=== PATIENT | male | born 1930 | race Caucasian/White ===

== ENCOUNTER 2017-11-03 18:17 | Inpatient (IN) | payer OTHER ==
[2017-11-03 19:09] VITALS: BMI 23.6
--- NOTE | 2017-11-03 19:09 | PDOC ---
History of Present Illness - General Chief Complaint: SIRS, Suspected/Possible Stated Complaint: FEVER Time Seen by Provider: 11/03/17 19:08 - History of Present Illness Initial Comments: 11/03/17 21:02 Patient is a 87 y.o. male with a PMH of IDDM, CKD Stage 2, GERD, PVD and MDD who was BIBEMS to our ED this evening following a U/C positive for proteus mirabalis. As per paperwork from [facility], Patient was started on Ceftriaxone ( 1 gm QD) on 10/26/17. Patient's daughter @ bedside notes patient is verbal and A&O x 3 at baseline. Past History - Past Medical History Allergies/Adverse Reactions: Allergies Allergy/AdvReac Type Severity Reaction Status Date / Time No Known Allergies Allergy Verified 09/25/13 19:48 Home Medications: Ambulatory Orders Aspirin [ASA -] 81 mg PO DAILY 04/10/13 Docusate Sodium [Colace -] 200 mg PO HS 04/10/13 Metformin HCl [Glucophage] 1,000 mg PO BID 04/10/13 Metoclopramide HCl 5 mg PO TID 04/10/13 Omeprazole [Prilosec (RX)] 20 mg PO DAILY 04/10/13 Tamsulosin HCl 0.4 mg PO DAILY 04/10/13 Citalopram Hydrobromide [Celexa -] 10 mg PO DAILY 09/25/13 Lisinopril [Prinivil -] 2.5 mg PO DAILY 09/25/13 Acetaminophen [Tylenol -] 1,000 mg PO BID 11/04/17 Ascorbate Calcium [Vitamin C] 500 mg PO DAILY 11/04/17 Cholecalciferol (Vitamin D3) [Vitamin D3 -] 1,000 unit PO DAILY 11/04/17 Cyanocobalamin [Vitamin B12 -] 100 mcg PO DAILY 11/04/17 Docusate Sodium [Colace] 200 mg PO HS 11/04/17 Insulin Aspart [Novolog] 0 unit SQ TID 11/04/17 Methyl Salicylate/Menthol [Bengay Greaseless Cream] 0 gm TP DAILY 11/04/17 Mirtazapine 7.5 mg PO HS 11/04/17 Multivitamin [One Daily] 1 each PO DAILY 11/04/17 Simvastatin [Zocor -] 40 mg PO HS 11/04/17 Timolol 0.5% [Timoptic 0.5%] 1 drop OD BID 11/04/17 Zinc Oxide 20% Topical Oint 1 applic TP BID 11/04/17 Anemia: No Asthma: No Cancer: No Cardiac Disorders: Yes CVA: No COPD: No CHF: No Dementia: Yes Diabetes: Yes GI Disorders: No Disorders: No HTN: Yes Hypercholesterolemia: Yes Kidney Stones: (chronic kidney disease) Liver Disease: No Seizures: No Thyroid Disease: No Other medical history: glaucoma, behavior dis, dementia, prostate enlargement - Surgical History Orthopedic Surgery: Yes (ORIF RIGHT HIP 2011,LA KNEE REPLACEMENT) - Immunization History Immunization Up to Date: Yes - Suicide/Smoking/Psychosocial Hx Smoking Status: No Smoking History: Unknown if ever smoked Have you smoked in the past 12 months: No Number of Cigarettes Smoked Daily: 0 Information on smoking cessation initiated: No Hx Alcohol Use: No Drug/Substance Use Hx: No Substance Use Type: None Hx Substance Use Treatment: No Review of Systems - Review of Systems Able to Perform ROS?: No *Physical Exam - Vital Signs Last Vital Signs Temp Pulse Resp BP Pulse Ox 99.6 F 106 H 22 112/57 83 L 11/03/17 19:01 11/03/17 19:01 11/03/17 19:01 11/03/17 19:01 11/03/17 19:01 - Physical Exam General Appearance: Yes: Nourished, Appropriately Dressed, Other (Lethargic and arousable) HEENT: positive: EOMI, GHADA Neck: positive: Trachea midline, Supple. negative: Lymphadenopathy (R), Lymphadenopathy (L) Respiratory/Chest: positive: Lungs Clear Cardiovascular: positive: S1, S2 Gastrointestinal/Abdominal: positive: Normal Bowel Sounds, Soft Integumentary: positive: Normal Color, Dry, Warm Neurologic: positive: inner diameter grinder tool II-XII NML intact, Alert, Other (Patient alert, responds to voice, however lethargic) ED Treatment Course - LABORATORY CBC & Chemistry Diagram: 11/04/17 05:55 11/04/17 07:16 Medical Decision Making - Medical Decision Making 11/03/17 21:10 Patient is an 87 y.o. male who presents for AMS from [facility]. At presentation patient is tachycardic and saturating at 83% on RA. Full sepsis work-up pending. 11/03/17 21:19 Case d/w Dr. Sethi (Attending Physician @ [facility]) - patient sent to ED for fever 102. Patient has h/o 8 UTI's in the past year. Patient was A&O x3 yesterday prior to febrile episode. Urine culture @ [facility] grew Proteus Mirabalis susceptible to Rocephin. 11/03/17 21:20 Fingerstick 227, Labs pending 11/03/17 22:24 Troponin 0.09 --> ASA however likely reactive; as per EMR no previous Troponin. Will repeat @ 4 hour latanya. Leukocytosis 13.9. Bev García (admits for [facility] @ [facility]) paged for admission. Patient placed on monitor - hypotensive SBP 90's - will gently hydrate. 11/03/17 22:38 Case d/w Dr. Luque (covers for Dr. García) accepts admission to inpatient telemetry. UA/UC pending. Will continue to monitor while in ED. *DC/Admit/Observation/Transfer Diagnosis at time of Disposition: UTI (urinary tract infection) - Discharge Dispostion Condition at time of disposition: Fair Admit: Yes - Referrals - Patient Instructions - Post Discharge Activity
[2017-11-03] MEDS ORDERED: ACETAMINOPHEN 1000 MG/100 ML VIAL (NON FORMULARY) IVPB ONE (20:39)
[2017-11-03] MEDS ORDERED: ACETAMINOPHEN INJECTION 100 ML IVPB ONE (20:48)
[2017-11-03 20:51] LABS: BASO % 0.2 % (0-2.0); HEMATOCRIT 34.8 % (35.4-49); HEMOGLOBIN 11.5 GM/dL (11.7-16.9); LYMPH % 6.6 % (8-40); MCH 31.3 pg (25.7-33.7); MCHC 33.1 g/dl (32.0-35.9); MEAN CELL VOLUME 94.7 fl (80-96); MEAN PLT VOLUME 7.5 fl (7.5-11.1); MONO % 7.7 % (3.8-10.2); NEUT % 85.5 % (42.8-82.8); PLATELET COUNT 363 K/MM3 (134-434); RBC 3.67 M/mm3 (4.00-5.60); RDW 13.3 % (11.9-15.9); WHITE BLOOD COUNT 14.3 K/mm3 (4.0-10.0)
[2017-11-03 20:59] LABS: VENOUS PC02 33.6 mmHg (38-52); VENOUS PH 7.43 (7.32-7.42); VENOUS PO2 51.5 mmHg (28-48)
[2017-11-03 21:05] LABS: INR 1.25 (0.82-1.09); PROTHROMBIN TIME (PATIENT) 14.1 SEC (9.98-11.88)
[2017-11-03 21:07] LABS: ACTIVATED PTT 26.3 SECONDS (26.9-34.4)
[2017-11-03 21:22] LABS: ALBUMIN 2.8 g/dl (3.4-5.0); ANION GAP 12 (8-16); BILIRUBIN,TOTAL 0.6 mg/dL (0.2-1.0); BLOOD UREA NITROGEN 31 mg/dL (7-18); CHLORIDE 103 mmol/L (98-107); CO2 22 mmol/L (21-32); CREATININE 1.1 mg/dL (0.7-1.3); GLUCOSE,RANDOM 233 mg/dL (74-106); POTASSIUM 3.9 mmol/L (3.5-5.1); SGOT/AST 27 U/L (15-37); SGPT/ALT 19 U/L (12-78); SODIUM 137 mmol/L (136-145); TOT PROT 6.7 g/dl (6.4-8.2)
[2017-11-03 21:24] LABS: ALK PHOS 82 U/L (45-117)
[2017-11-03] MEDS ORDERED: ASPIRIN 325 MG ENTERIC COATED TABLET (FP) PO ONE (22:10)
[2017-11-03] MEDS ORDERED: ASPIRIN 325 MG TABLET ONE (22:18)
[2017-11-03] MEDS ORDERED: SODIUM CHLORIDE 0.9% 1000 ML INFUS.BAG IV ONE (22:40)
[2017-11-03] MEDS ORDERED: PIPERACILLIN/TAZOB 3.375 GM 3.375 GM in DEXTROSE 5%-WATER - 100 ML IVPB ONE (22:56)
--- NOTE | 2017-11-03 23:01 | HP ---
Admitting History and Physical - Primary Care Physician PCP: Corona Castorena - Admission Chief Complaint: Sent in for +Urine Culture History of Present Illness: This is a 87 y/o man from [facility] sent in for + urine culture- proteus miraballis, who was started on Ceftriaxone at the facility. Patient's daughter was at bedside who provided HPI. Patient has Dementia and unable to provide. The daughter reports that she was called by the [place] and informed about the patient's UTI. Per daughter, he was fine last Friday, alert and at baseline , he ate food that she fed him. She states" Today he is lethargic, pale, he has a moist, barky cough." Patient received Septic. T max 102.5, P- 100s, Spo2-83% improved with O2 95-100 %. 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 Cardiovascular: Yes: HTN, Hyperlipdemia Gastrointestinal: Yes: GERD, Peptic Ulcer Disease Renal/: Yes: Renal Failure (stage 2) Endocrine: Yes: Diabetes Mellitus - Past Surgical History Past Surgical History: Yes: Joint Replacement (right hip bilateral knee) - Advance Directives Advance Directives: Yes: DNR - Smoking History Smoking history: Unknown if ever smoked Have you smoked in the past 12 months: No Aproximately how many cigarettes per day: 0 - Alcohol/Substance Use Hx Alcohol Use: No History of Substance Use: reports: None - Social History Usual Living Arrangement: Yes: [facility] ADL: Support Services History of Recent Travel: No Home Medications - Allergies Allergies/Adverse Reactions: Allergies Allergy/AdvReac Type Severity Reaction Status Date / Time No Known Allergies Allergy Verified 09/25/13 19:48 - Home Medications Home Medications: Ambulatory Orders Aspirin [ASA -] 81 mg PO DAILY 04/10/13 Docusate Sodium [Colace -] 200 mg PO HS 04/10/13 Metformin HCl [Glucophage] 1,000 mg PO BID 04/10/13 Metoclopramide HCl 5 mg PO TID 04/10/13 Omeprazole [Prilosec (RX)] 20 mg PO DAILY 04/10/13 Tamsulosin HCl 0.4 mg PO DAILY 06/29/13 Citalopram Hydrobromide [Celexa -] 10 mg PO DAILY 09/25/13 Lisinopril [Prinivil -] 2.5 mg PO DAILY 09/25/13 Acetaminophen [Tylenol -] 1,000 mg PO BID 11/04/17 Ascorbate Calcium [Vitamin C] 500 mg PO DAILY 11/04/17 Cholecalciferol (Vitamin D3) [Vitamin D3 -] 1,000 unit PO DAILY 11/04/17 Cyanocobalamin [Vitamin B12 -] 100 mcg PO DAILY 11/04/17 Insulin Aspart [Novolog] 0 unit SQ TID 11/04/17 Mirtazapine 7.5 mg PO HS 11/04/17 Multivitamin [One Daily] 1 each PO DAILY 11/04/17 Simvastatin [Zocor -] 40 mg PO HS 11/04/17 Timolol 0.5% [Timoptic 0.5%] 1 drop OD BID 11/04/17 Zinc Oxide 20% Topical Oint 1 applic TP BID 11/04/17 Family Disease History - Family Disease History Family History: Unable to Obtain Review of Systems Unable to obtain ROS, reason: Dementia Physical Examination Vital Signs: Vital Signs Temperature 102.5 F H 11/03/17 20:53 Pulse Rate 106 H 11/03/17 19:01 Respiratory Rate 22 11/03/17 19:01 Blood Pressure 112/57 11/03/17 19:01 O2 Sat by Pulse Oximetry (%) 83 L 11/03/17 19:01 Constitutional: Yes: No Distress, Calm Eyes: Yes: WNL, Conjunctiva Clear, PERRL HENT: Yes: WNL, Atraumatic, Normocephalic Neck: Yes: WNL, Supple, Trachea Midline Cardiovascular: Yes: WNL, Regular Rate and Rhythm, S1, S2 Respiratory: Yes: Regular, Diminished, On Nasal O2 Gastrointestinal: Yes: Normal Bowel Sounds, Soft ...Rectal Exam: Yes: WNL Renal/: Yes: Incontinence Breast(s): Yes: WNL Musculoskeletal: Yes: WNL Extremities: Yes: WNL Edema: No Peripheral Pulses WNL: Yes Integumentary: Yes: WNL Neurological: Yes: Lethargy ...Motor Strength: WNL Psychiatric: Yes: Other (at baseline- Dementia) Labs: CBC, BMP 11/03/17 20:40 11/03/17 20:40 Laboratory Results - last 24 hr 11/03/17 11/03/17 11/03/17 20:40 20:40 20:40 WBC 14.3 H RBC 3.67 L Hgb 11.5 L Hct 34.8 L MCV 94.7 MCH 31.3 MCHC 33.1 RDW 13.3 Plt Count 363 D MPV 7.5 Neutrophils % 85.5 H Lymphocytes % 6.6 L Monocytes % 7.7 Eosinophils % 0.0 D Basophils % 0.2 PT with INR 14.10 H INR 1.25 H PTT (Actin FS) 26.3 L VBG pH 7.43 H POC VBG pCO2 33.6 L POC VBG pO2 51.5 H Mixed VBG HCO3 21.8 Sodium Potassium Chloride Carbon Dioxide Anion Gap BUN Creatinine Creat Clearance w eGFR POC Glucometer Random Glucose Lactic Acid Calcium Total Bilirubin AST ALT Alkaline Phosphatase Creatine Kinase Creatine Kinase Index CK-MB (CK-2) Troponin I Total Protein Albumin Urine Color Urine Appearance Urine pH Ur Specific [place] Urine Protein Urine Glucose (UA) Urine Ketones Urine Blood Urine Nitrite Urine Bilirubin Urine Urobilinogen Ur Leukocyte Esterase Urine WBC (Auto) Urine RBC (Auto) Ur Epithelial Cells Urine Mucus Anti-A Titer Blood Type Antibody Screen 11/03/17 11/03/17 11/03/17 20:40 20:40 20:40 WBC RBC Hgb Hct MCV MCH MCHC RDW Plt Count MPV Neutrophils % Lymphocytes % Monocytes % Eosinophils % Basophils % PT with INR INR PTT (Actin FS) VBG pH POC VBG pCO2 POC VBG pO2 Mixed VBG HCO3 Sodium 137 Potassium 3.9 Chloride 103 Carbon Dioxide 22 Anion Gap 12 BUN 31 H D Creatinine 1.1 D Creat Clearance w eGFR > 60 POC Glucometer Random Glucose 233 H D Lactic Acid 0.8 Calcium 8.0 L Total Bilirubin 0.6 D AST 27 D ALT 19 Alkaline Phosphatase 82 Creatine Kinase 291 Creatine Kinase Index 0.3 CK-MB (CK-2) < 1.000 Troponin I 0.09 H D Total Protein 6.7 Albumin 2.8 L Urine Color Urine Appearance Urine pH Ur Specific [place] Urine Protein Urine Glucose (UA) Urine Ketones Urine Blood Urine Nitrite Urine Bilirubin Urine Urobilinogen Ur Leukocyte Esterase Urine WBC (Auto) Urine RBC (Auto) Ur Epithelial Cells Urine Mucus Anti-A Titer Cancelled Blood Type Cancelled Antibody Screen Cancelled 11/03/17 11/04/17 11/04/17 21:44 02:20 02:40 WBC RBC Hgb Hct MCV MCH MCHC RDW Plt Count MPV Neutrophils % Lymphocytes % Monocytes % Eosinophils % Basophils % PT with INR INR PTT (Actin FS) VBG pH POC VBG pCO2 POC VBG pO2 Mixed VBG HCO3 Sodium Potassium Chloride Carbon Dioxide Anion Gap BUN Creatinine Creat Clearance w eGFR POC Glucometer [id number] Random Glucose Lactic Acid Calcium Total Bilirubin AST ALT Alkaline Phosphatase Creatine Kinase Creatine Kinase Index CK-MB (CK-2) Troponin I 0.08 H Total Protein Albumin Urine Color Yellow Urine Appearance Cloudy Urine pH 5.0 Ur Specific [place] 1.018 Urine Protein 1+ H Urine Glucose (UA) 1+ H Urine Ketones 1+ H Urine Blood 1+ H Urine Nitrite Negative Urine Bilirubin Negative Urine Urobilinogen Negative Ur Leukocyte Esterase 3+ H Urine WBC (Auto) 254 Urine RBC (Auto) 27 Ur Epithelial Cells Rare Urine Mucus Rare Anti-A Titer Blood Type Antibody Screen Intake & Output 11/01/17 11/02/17 11/03/17 11/04/17 23:59 23:59 23:59 23:59 Weight 74.843 kg Current Medications Generic Name Dose Route Start Last Admin Trade Name Freq PRN Reason Stop Dose Admin Aspirin 81 mg 11/04/17 10:00 Asa - PO DAILY [facility] Cholecalciferol 1,000 unit 11/04/17 10:00 Vitamin D3 - PO DAILY [facility] Citalopram Hydrobromide 10 mg 11/04/17 10:00 Celexa - PO DAILY [facility] Cyanocobalamin 100 mcg 11/04/17 10:00 Vitamin B12 - PO DAILY [facility] Sodium Chloride 1,000 mls @ 60 mls/hr 11/04/17 05:05 Normal Saline - IV ASDIR [facility] Insulin Aspart 1 vial 11/04/17 07:00 Novolog Vial Sliding Scale - SQ TIDAC [facility] Protocol Multivitamins/Minerals/Vitamin C 1 tab 11/04/17 10:00 Tab-A-Vit - PO DAILY ASYA Non-Formulary Medication 200 mg 11/04/17 22:00 Docusate Sodium [Colace -] PO HS ASYA Non-Formulary Medication 7.5 mg 11/04/17 22:00 Mirtazapine [Mirtazapine] PO HS ASYA Non-Formulary Medication 20 mg 11/04/17 10:00 Omeprazole [Prilosec (Rx)] PO DAILY [facility] Non-Formulary Medication 40 mg 11/04/17 22:00 Simvastatin PO HS ASYA Non-Formulary Medication 1 applic 11/04/17 10:00 Zinc Oxide 20% Topical Oint TP BID ASYA Non-Formulary Medication 2.5 mg 11/04/17 10:00 Lisinopril [Prinivil -] PO DAILY [facility] Tamsulosin HCl 0.4 mg 11/04/17 10:00 Flomax - PO DAILY [facility] Timolol Maleate 1 drop 11/04/17 10:00 Timoptic 0.5% OD BID [facility] Imaging - Results Chest X-ray: Image Reviewed EKG: Image Reviewed (SR with 1st degree AV Block nonspecific ST abnormality ( lead II) QT/QTc 388/477) Problem List - Problems (1) Sepsis Code(s): A41.9 - SEPSIS, UNSPECIFIED ORGANISM (2) UTI (urinary tract infection) Code(s): N39.0 - URINARY TRACT INFECTION, SITE NOT SPECIFIED (3) Hypoxic Code(s): R09.02 - HYPOXEMIA (4) Leukocytosis Code(s): D72.829 - ELEVATED WHITE BLOOD CELL COUNT, UNSPECIFIED (5) Elevated troponin I level Code(s): R74.8 - ABNORMAL LEVELS OF OTHER SERUM ENZYMES (6) HTN (hypertension) Code(s): I10 - ESSENTIAL (PRIMARY) HYPERTENSION (7) HLD (hyperlipidemia) Code(s): E78.5 - HYPERLIPIDEMIA, UNSPECIFIED (8) CKD (chronic kidney disease), stage II Code(s): N18.2 - CHRONIC KIDNEY DISEASE, STAGE 2 (MILD) (9) GERD (gastroesophageal reflux disease) Code(s): K21.9 - GASTRO-ESOPHAGEAL REFLUX DISEASE WITHOUT ESOPHAGITIS (10) PUD (peptic ulcer disease) Code(s): K27.9 - PEPTIC ULC, SITE UNSP, UNSP AC OR CHR, W/O HEMOR OR PERF (11) Dementia Code(s): F03.90 - UNSPECIFIED DEMENTIA WITHOUT BEHAVIORAL DISTURBANCE (12) MDD (major depressive disorder) Code(s): F32.9 - MAJOR DEPRESSIVE DISORDER, SINGLE EPISODE, UNSPECIFIED (13) Chronic lower urinary tract infection Code(s): N39.0 - URINARY TRACT INFECTION, SITE NOT SPECIFIED (14) DVT prophylaxis Code(s): [id number] - Assessment/Plan 87 y/o man with a PMHx of: Dementia, MDD, HTN, HLD, NIDDM, CKD stage II, GERD, PUD, Chronic UTIs. Admitted to [facility] for Sepsis secondary to UTI, Elevated Troponin. Plan: 1. ID Severe Sepsis- Likely secondary to UTI, patient was sent in for +urine culture obtained 10/23, resulted 10/30- proteus mirabilis, and was treated with ceftriaxone IM. UA obtained in ED- +3 Leukocytes, 324 WBC, Urine culture- pending. Vancomycin, Zosyn given in ED, Will continue Vancomycin and Zosyn. Appreciate ID Consult, qSOFA 3, SIRS Criteria MET IV- T max 102.5, P 106, Spo2 83% (RA improved to 95-100 on O2), WBC 14.3, Neutrophils 85, Monitor vitals, INOs, Continue NS fluids to Maintain SBP > 90's, MAP 65. Monitor CBC, BMP, Lactic Acid, Tylenol for fever. 2. Cardiology Elevated Troponin- Likely secondary to Demand Ischemia, Continue cardiac monitoring, Continue serial enzymes, Appreciate Cardiology Consult, EKG showed- SR with 1st degree AV block, non specific ST abnormality in lead II. Asa given in ED, will continue. Hypertension- Currently hypotensive, will hold home meds. Continue NS to maintain SBP >85 MAP >60 Hyperlipidemia- Continue statin, monitor LFTs 3. Nephrology CKD Stage II- Cr 1.1 at baseline Continue to monitor and treat with interventions accordingly. 4. Endocrinology NIDDM- BGMs, ISS, HgbA1c, Hold Metformin secondary to Sepsis 5. GI GERD//PUD- Continue PPI 6. Psych MDD// Dementia- Continue Lexapro, Remeron, Fall Precautions 7. FEN- NS@60ml/hr, Replete lytes prn, Low Na, Diabetic Diet 8. DVT Prophylaxis- SCDs, Heparin SQ monitor CBC closely Code Status: DNR Dispo: Requires Inpatient Care Visit type - Emergency Visit Emergency Visit: Yes ED Registration Date: 11/03/17 Care time: The patient presented to the Emergency Department on the above date and was hospitalized for further evaluation of their emergent condition. - New Patient This patient is new to me today: Yes Date on this admission: 11/03/17 - Critical Care Critical Care patient: No
[2017-11-03] MEDS ORDERED: PIPERACILLIN/TAZOB 3.375 GM 3.375 GM/50 ML BAG IVPB ONE (23:10)
[2017-11-03] MEDS ORDERED: VANCOMYCIN 1,000 MG in DEXTROSE 5%-WATER - 250 ML IVPB ONE (23:14)
[2017-11-03] MEDS ORDERED: VANCOMYCIN 1 GRAM (PRE-DOCKED) 1,000 MG/250 ML BAG IVPB ONE (23:15)
[2017-11-04] MEDS ORDERED: SODIUM CHLORIDE 500 ML IV STA (00:03)
[2017-11-04] MEDS ORDERED: SODIUM CHLORIDE 1,000 ML IV SCH ×2 (00:30→05:05)
[2017-11-04 02:56] LABS: URINE APPEARANCE CLOUDY; URINE BILIRUBIN NEGATIVE (NEGATIVE); URINE BLOOD 1+ (NEGATIVE); URINE COLOR YELLOW; URINE GLUCOSE (UA) 1+ (NEGATIVE); URINE KETONE 1+ (NEGATIVE); URINE NITRITE NEGATIVE (NEGATIVE); URINE UROBILINOGEN NEGATIVE mg/dL (0.2-1.0)
[2017-11-04 03:10] LABS: URINE LEUK ESTERASE 3+ (NEGATIVE); URINE PROTEIN 1+ (NEGATIVE)
[2017-11-04 03:13] LABS: EPI CELLS RARE /HPF (FEW); URINE MUCUS RARE
[2017-11-04] MEDS ORDERED: ACETAMINOPHEN 325 MG TABLET (FP) PO PRN (06:14)
[2017-11-04] MEDS ORDERED: INSULIN (NOVOLOG) ASPART 100 UNITS/ML 10ML VIAL ONE (07:46)
[2017-11-04 07:49] LABS: BASO % 0.1 % (0-2.0); HEMOGLOBIN 9.1 GM/dL (11.7-16.9); LYMPH % 12.1 % (8-40); MCH 31.1 pg (25.7-33.7); MCHC 32.4 g/dl (32.0-35.9); MEAN CELL VOLUME 95.9 fl (80-96); MEAN PLT VOLUME 7.2 fl (7.5-11.1); MONO % 10.7 % (3.8-10.2); NEUT % 77.1 % (42.8-82.8); PLATELET COUNT 273 K/MM3 (134-434); RBC 2.91 M/mm3 (4.00-5.60); RDW 13.2 % (11.9-15.9)
[2017-11-04] MEDS: INSULIN SLIDING SCALE (NOVOLOG) 1 VIAL SQ SCH ×3 (07:50→17:11)
[2017-11-04] MEDS ORDERED: PIPERACILLIN/TAZOB 3.375 GM 3.375 GM in DEXTROSE 5%-WATER - 100 ML IVPB ONE (08:15)
[2017-11-04 08:32] LABS: CHLORIDE 114 mmol/L (98-107); SODIUM 145 mmol/L (136-145)
[2017-11-04 09:15] LABS: ANION GAP 13 (8-16); BLOOD UREA NITROGEN 24 mg/dL (7-18); CO2 18 mmol/L (21-32); CREATININE 0.8 mg/dL (0.7-1.3); GLUCOSE,RANDOM 205 mg/dL (74-106)
[2017-11-04] MEDS: TAMSULOSIN HCL 0.4 MG CAP.ER.24H (FP) PO SCH (09:18)
[2017-11-04] MEDS: PANTOPRAZOLE 20 MG TABLET (FP) PO SCH (09:56)
[2017-11-04] MEDS: ASPIRIN 81 MG CHEWABLE TABLETS PO SCH (09:56)
[2017-11-04] MEDS: LISINOPRIL 5 MG TABLET (FP) PO SCH (09:56)
[2017-11-04] MEDS: CITALOPRAM HYDROBROMIDE 10 MG TABLET (FP) PO SCH (09:56)
[2017-11-04] MEDS: MULTIVITAMINS (DAILY MVI) TABLET (FP) PO SCH (09:56)
[2017-11-04] MEDS: CHOLECALCIFEROL (VITAMIN D3) 1,000 UNIT TABLET (FP) PO SCH (09:57)
[2017-11-04] MEDS: TIMOLOL 0.5% OPHTHALMIC SOL 5 ML BOTTLE OD SCH ×2 (09:57→21:59)
[2017-11-04] MEDS: CYANOCOBALAMIN (VITAMIN B-12) 100 MCG TABLET PO SCH (09:57)
[2017-11-04] MEDS: ZINC OXIDE 20% TOPICAL OINTMENT 30 GM TUBE TP SCH (09:57)
[2017-11-04] MEDS ORDERED: PIPERACIL/TAZOB 3.375 GM 3.375 GM/50 ML PREMIX IVPB SCH (10:00)
[2017-11-04] MEDS ORDERED: VANCOMYCIN 1,000 MG in DEXTROSE 5%-WATER - 250 ML IVPB SCH (10:00)
[2017-11-04 10:01] LABS: CALCIUM 5.5 mg/dL (8.5-10.1); POTASSIUM 2.8 mmol/L (3.5-5.1)
[2017-11-04] MEDS ORDERED: CALCIUM CHLORIDE 10% 1 GM/10 ML *VIAL IVPB ONE (10:33)
--- NOTE | 2017-11-04 10:34 | PN ---
Progress Note, Physician History of Present Illness: patient seen and examined. Chart reviewed. patient currently in the emergency room Awake and comfortable I discussed with the patient's private PMD [facility] In summary 87 year old man sent to ed with fever and lethargy from half-way he has been receiving rocephin IM since 10/29 for proteus UTI and received a dose of zosyn prior to transfer today he denies pain Comfortable - Current Medication List Current Medications: Active Medications Acetaminophen (Tylenol -) 650 mg PO Q6H PRN PRN Reason: PAIN OR FEVER Aspirin (Asa -) 81 mg PO DAILY [facility] Last Admin: 11/04/17 09:56 Dose: 81 mg Atorvastatin Calcium (Lipitor -) 20 mg PO HS [facility] Calcium Chloride (Calcium Chloride 10% -) 2 gm IVPB ONCE ONE Stop: 11/04/17 10:34 Cholecalciferol (Vitamin D3 -) 1,000 unit PO DAILY [facility] Last Admin: 11/04/17 09:57 Dose: 1,000 unit Citalopram Hydrobromide (Celexa -) 10 mg PO DAILY [facility] Last Admin: 11/04/17 09:56 Dose: 10 mg Cyanocobalamin (Vitamin B12 -) 100 mcg PO DAILY [facility] Last Admin: 11/04/17 09:57 Dose: 100 mcg Docusate Sodium (Colace -) 200 mg PO HS [facility] Dextrose/Sodium Chloride (Dextrose 5%-Normal Saline+20 Meq Kcl -) 20 meq in 1, 000 mls @ 125 mls/hr IV ASDIR [facility] Potassium Chloride (Potassium Chloride 10 Meq Premix Ivpb -) 10 meq in 100 mls @ 100 mls/hr IVPB Q60M [facility] Stop: 11/04/17 13:44 Insulin Aspart (Novolog Vial Sliding Scale -) 1 vial SQ TIDAC [facility] PRN Reason: Protocol Last Admin: 11/04/17 07:50 Dose: 6 units Lisinopril (Prinivil) 2.5 mg PO DAILY [facility] Last Admin: 11/04/17 09:56 Dose: Not Given Mirtazapine (Remeron -) 7.5 mg PO HS [facility] Multi-Ingredient Ointment (Zinc Oxide) 1 applic TP BID [facility] Last Admin: 11/04/17 09:57 Dose: Not Given Multivitamins/Minerals/Vitamin C (Tab-A-Vit -) 1 tab PO DAILY [facility] Last Admin: 11/04/17 09:56 Dose: 1 tab Pantoprazole Sodium (Protonix -) 20 mg PO DAILY [facility] Last Admin: 11/04/17 09:56 Dose: 20 mg Piperacillin/Tazobactam/Dextrose (Zosyn 3.375gm Ivpb (Premix)) 3.375 gm IVPB Q8H-IV [facility] Tamsulosin HCl (Flomax -) 0.4 mg PO DAILY@0830 [facility] Last Admin: 11/04/17 09:18 Dose: 0.4 mg Timolol Maleate (Timoptic 0.5%) 1 drop OD BID [facility] Last Admin: 11/04/17 09:57 Dose: Not Given - Objective Vital Signs: Vital Signs Temperature 98.4 F 11/04/17 06:59 Pulse Rate 60 11/04/17 09:12 Respiratory Rate 20 11/04/17 09:12 Blood Pressure 103/62 11/04/17 09:16 O2 Sat by Pulse Oximetry (%) 98 11/04/17 09:12 Constitutional: Yes: No Distress, Calm Eyes: Yes: Conjunctiva Clear Neck: Yes: Supple Cardiovascular: Yes: Regular Rate and Rhythm Respiratory: Yes: CTA Bilaterally. No: Diminished Gastrointestinal: Yes: Normal Bowel Sounds, Soft Edema: No Neurological: Yes: Alert Labs: CBC, BMP 11/04/17 05:55 11/04/17 07:16 INR, PTT INR 1.25 (0.82-1.09) H 11/03/17 20:40 - ....Imaging Chest X-ray: Report Reviewed Problem List - Problems (1) Fever Code(s): R50.9 - FEVER, UNSPECIFIED (2) Dementia Code(s): F03.90 - UNSPECIFIED DEMENTIA WITHOUT BEHAVIORAL DISTURBANCE Qualifiers: Dementia type: unspecified type (3) HTN (hypertension) Code(s): I10 - ESSENTIAL (PRIMARY) HYPERTENSION Qualifiers: Hypertension type: essential hypertension Qualified Code(s): I10 - Essential (primary) hypertension (4) UTI (urinary tract infection) Code(s): N39.0 - URINARY TRACT INFECTION, SITE NOT SPECIFIED (5) Electrolyte imbalance Code(s): E87.8 - OTH DISORDERS OF ELECTROLYTE AND FLUID BALANCE, NEC (6) Hypotension Code(s): I95.9 - HYPOTENSION, UNSPECIFIED Assessment/Plan continue antibiotics ID consult--- discussed with ID Need to have Zosyn Follow-up cultures Old blood pressure medication Increase fluids Fix electrolytes Follow-up labs Will follow Discussed with nursing staff.
--- NOTE | 2017-11-04 10:36 | CON.ID ---
Consult Consult Specialty:: infectious disease Referred by:: dr mora Reason for Consultation:: fever - History of Present Illness Chief Complaint: fever History of Present Illness: 87 year old man sent to ed with fever and [place]argy [place] I spoke to [place] he has been receiving rocephin IM since 10/29 for proteus UTI and received a dose of zosyn prior to transfer to our ED-I contacted his nurse at the [place] no documented influenza on his unit at the [place] now alert and conversant fever has resolved wants to eat breakfast denies chest pain/abd pain occasional cough - History Source History Provided By: Medical Record - Past Medical History 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 Cardio/Vascular: Yes: HTN, Hyperlipdemia Gastrointestinal: Yes: GERD, Peptic Ulcer Disease Renal/: Yes: Renal Failure (stage 2) Endocrine: Yes: Diabetes Mellitus - Past Surgical History Past Surgical History: Yes: Joint Replacement (right hip bilateral knee) - Alcohol/Substance Use Hx Alcohol Use: No History of Substance Use: reports: None - Smoking History Smoking history: Unknown if ever smoked Have you smoked in the past 12 months: No Aproximately how many cigarettes per day: 0 - Social History Usual Living Arrangement: [facility] ADL: Support Services History of Recent Travel: No Home Medications - Allergies Allergies/Adverse Reactions: Allergies Allergy/AdvReac Type Severity Reaction Status Date / Time No Known Allergies Allergy Verified 09/25/13 19:48 - Home Medications Home Medications: Ambulatory Orders Aspirin [ASA -] 81 mg PO DAILY 04/10/13 Docusate Sodium [Colace -] 200 mg PO HS 04/10/13 Metformin HCl [Glucophage] 1,000 mg PO BID 04/10/13 Metoclopramide HCl 5 mg PO TID 04/10/13 Omeprazole [Prilosec (RX)] 20 mg PO DAILY 04/10/13 Tamsulosin HCl 0.4 mg PO DAILY 04/10/13 Citalopram Hydrobromide [Celexa -] 10 mg PO DAILY 09/25/13 Lisinopril [Prinivil -] 2.5 mg PO DAILY 09/25/13 Acetaminophen [Tylenol -] 1,000 mg PO BID 11/04/17 Ascorbate Calcium [Vitamin C] 500 mg PO DAILY 11/04/17 Cholecalciferol (Vitamin D3) [Vitamin D3 -] 1,000 unit PO DAILY 11/04/17 Cyanocobalamin [Vitamin B12 -] 100 mcg PO DAILY 11/04/17 Insulin Aspart [Novolog] 0 unit SQ TID 11/04/17 Mirtazapine 7.5 mg PO HS 11/04/17 Multivitamin [One Daily] 1 each PO DAILY 11/04/17 Simvastatin [Zocor -] 40 mg PO HS 11/04/17 Timolol 0.5% [Timoptic 0.5%] 1 drop OD BID 11/04/17 Zinc Oxide 20% Topical Oint 1 applic TP BID 11/04/17 Family Disease History - Family Disease History Family History: Unable to Obtain Review of Systems - Review of Systems Constitutional: reports: No Symptoms Eyes: reports: No Symptoms HENT: reports: No Symptoms Neck: reports: No Symptoms Cardiovascular: denies: Chest Pain Respiratory: denies: SOB Gastrointestinal: reports: No Symptoms Genitourinary: reports: No Symptoms Physical Exam Vital Signs: Vital Signs Temperature 98.4 F 11/04/17 06:59 Pulse Rate 60 11/04/17 09:12 Respiratory Rate 20 11/04/17 09:12 Blood Pressure 103/62 11/04/17 09:16 O2 Sat by Pulse Oximetry (%) 98 11/04/17 09:12 Constitutional: Yes: Well Nourished, No Distress, Calm Eyes: Yes: Conjunctiva Clear HENT: Yes: Atraumatic, Normocephalic Neck: Yes: Supple Cardiovascular: Yes: Regular Rate and Rhythm Respiratory: Yes: Rhonchi Gastrointestinal: Yes: Normal Bowel Sounds, Soft Renal/: No: Bladder Distention, CVA Tenderness - Left, CVA Tenderness - Right Extremities: Yes: WNL Edema: No Psychiatric: Yes: Alert Labs: CBC, BMP 11/04/17 05:55 11/04/17 07:16 UA 254 wbc Imaging - Results Chest X-ray: Report Reviewed, Image Reviewed Problem List - Problems (1) Sepsis Code(s): A41.9 - SEPSIS, UNSPECIFIED ORGANISM (2) UTI (urinary tract infection) Code(s): N39.0 - URINARY TRACT INFECTION, SITE NOT SPECIFIED Assessment/Plan mental status improved pyuria noted on UA continue zosyn (received vanco/zosyn in ED) will f/u cultures replete electrolytes
[2017-11-04] MEDS ORDERED: POTASSIUM CHLORIDE 10 MEQ in SODIUM CHLORIDE 100 ML IVPB SCH ×2 (11:00→17:30)
--- NOTE | 2017-11-04 11:01 | CON.CARD ---
Consult Consult Specialty:: Cardiology Referred by:: Dr. Caitlin García Reason for Consultation:: Cardiac evaluation - History of Present Illness Chief Complaint: Lethargy with positive urine culture. Slightly elevated troponin History of Present Illness: Patient is an 87 year old gentleman transferred from [place] with underlying history of diabetes mellitus (Insulin requiring), hypertension (currently low blood pressure), hypercholesterolemia. He has been treated for UTI at the [place] with proteus UTI, but was transferred for further treatment after lethargy. He is awake and verbal. He denies chest pain or shortness of breath. He complains of intermittent palpitations. He denies paroxysmal nocturnal dyspnea or orthopnea. He denies fever. He complains of intermittent dizziness, but denies headache. He denies nausea, vomiting, diarrhea or abdominal pain. Cardiology consultation was called for mildly elevated troponin likely due to demand ischemia. 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 Cardio/Vascular: Yes: HTN, Hyperlipdemia Gastrointestinal: Yes: GERD, Peptic Ulcer Disease Renal/: Yes: Renal Inusuff Endocrine: Yes: Diabetes Mellitus - Past Surgical History Past Surgical History: Yes: Joint Replacement (right hip bilateral knee) - Alcohol/Substance Use Hx Alcohol Use: Yes (In the past) History of Substance Use: reports: None - Smoking History Smoking history: Former smoker Have you smoked in the past 12 months: No Aproximately how many cigarettes per day: 0 - Social History Usual Living Arrangement: [facility] ADL: Support Services History of Recent Travel: No Home Medications - Allergies Allergies/Adverse Reactions: Allergies Allergy/AdvReac Type Severity Reaction Status Date / Time No Known Allergies Allergy Verified 09/25/13 19:48 - Home Medications Home Medications: Ambulatory Orders Aspirin [ASA -] 81 mg PO DAILY 04/10/13 Docusate Sodium [Colace -] 200 mg PO HS 04/10/13 Metformin HCl [Glucophage] 1,000 mg PO BID 04/10/13 Metoclopramide HCl 5 mg PO TID 04/10/13 Omeprazole [Prilosec (RX)] 20 mg PO DAILY 04/10/13 Tamsulosin HCl 0.4 mg PO DAILY 04/10/13 Citalopram Hydrobromide [Celexa -] 10 mg PO DAILY 09/25/13 Lisinopril [Prinivil -] 2.5 mg PO DAILY 09/25/13 Acetaminophen [Tylenol -] 1,000 mg PO BID 11/04/17 Ascorbate Calcium [Vitamin C] 500 mg PO DAILY 11/04/17 Cholecalciferol (Vitamin D3) [Vitamin D3 -] 1,000 unit PO DAILY 11/04/17 Cyanocobalamin [Vitamin B12 -] 100 mcg PO DAILY 11/04/17 Insulin Aspart [Novolog] 0 unit SQ TID 11/04/17 Mirtazapine 7.5 mg PO HS 11/04/17 Multivitamin [One Daily] 1 each PO DAILY 11/04/17 Simvastatin [Zocor -] 40 mg PO HS 11/04/17 Timolol 0.5% [Timoptic 0.5%] 1 drop OD BID 11/04/17 Zinc Oxide 20% Topical Oint 1 applic TP BID 11/04/17 Family Disease History - Family Disease History Family History: Unable to Obtain Review of Systems - Review of Systems Constitutional: denies: Chills, Fever Cardiovascular: denies: Chest Pain, Palpitations, Shortness of Breath Respiratory: denies: Cough, Hemoptysis, Orthopnea, PND, SOB, SOB on Exertion Gastrointestinal: denies: Abdominal Pain, Constipation, Melena, Nausea, Rectal Bleeding, Vomiting Genitourinary: reports: Dysuria. denies: Hematuria Musculoskeletal: reports: Back Pain, Joint Pain Neurological: reports: Dizziness. denies: Headache, Seizure, Syncope Vital Signs: Vital Signs Temperature 98.4 F 11/04/17 06:59 Pulse Rate 60 11/04/17 09:12 Respiratory Rate 20 11/04/17 09:12 Blood Pressure 103/62 11/04/17 09:16 O2 Sat by Pulse Oximetry (%) 98 11/04/17 09:12 Eyes: Yes: PERRL HENT: Yes: Atraumatic Neck: Yes: Supple Respiratory: Yes: Diminished Gastrointestinal: Yes: Normal Bowel Sounds, Soft. No: Tenderness Cardiovascular: Yes: Regular Rate and Rhythm. No: Gallop JVD: No Carotid Bruit: No PMI: Non-Displaced Heart Sounds: Yes: S1, S2 Murmur: Yes: Systolic Murmur (Soft SM at LSB and apex), Grade 1 Edema: No - Other Data Labs, Other Data: CBC, BMP 11/04/17 05:55 11/04/17 07:16 INR, PTT INR 1.25 (0.82-1.09) H 11/03/17 20:40 Troponin, BNP 11/03/17 11/04/17 11/04/17 20:40 02:20 07:16 Troponin I 0.09 H D 0.08 H 0.04 D Laboratory Results - last 24 hr 11/03/17 11/03/17 11/03/17 20:40 20:40 20:40 WBC 14.3 H RBC 3.67 L Hgb 11.5 L Hct 34.8 L MCV 94.7 MCH 31.3 MCHC 33.1 RDW 13.3 Plt Count 363 D MPV 7.5 Neutrophils % 85.5 H Lymphocytes % 6.6 L Monocytes % 7.7 Eosinophils % 0.0 D Basophils % 0.2 PT with INR 14.10 H INR 1.25 H PTT (Actin FS) 26.3 L VBG pH 7.43 H POC VBG pCO2 33.6 L POC VBG pO2 51.5 H Mixed VBG HCO3 21.8 Sodium Potassium Chloride Carbon Dioxide Anion Gap BUN Creatinine Creat Clearance w eGFR POC Glucometer Random Glucose Lactic Acid Calcium Total Bilirubin AST ALT Alkaline Phosphatase Creatine Kinase Creatine Kinase Index CK-MB (CK-2) Troponin I Total Protein Albumin Urine Color Urine Appearance Urine pH Ur Specific Lovely Urine Protein Urine Glucose (UA) Urine Ketones Urine Blood Urine Nitrite Urine Bilirubin Urine Urobilinogen Ur Leukocyte Esterase Urine WBC (Auto) Urine RBC (Auto) Ur Epithelial Cells Urine Mucus Anti-A Titer Blood Type Antibody Screen 11/03/17 11/03/17 11/03/17 20:40 20:40 20:40 WBC RBC Hgb Hct MCV MCH MCHC RDW Plt Count MPV Neutrophils % Lymphocytes % Monocytes % Eosinophils % Basophils % PT with INR INR PTT (Actin FS) VBG pH POC VBG pCO2 POC VBG pO2 Mixed VBG HCO3 Sodium 137 Potassium 3.9 Chloride 103 Carbon Dioxide 22 Anion Gap 12 BUN 31 H D Creatinine 1.1 D Creat Clearance w eGFR > 60 POC Glucometer Random Glucose 233 H D Lactic Acid 0.8 Calcium 8.0 L Total Bilirubin 0.6 D AST 27 D ALT 19 Alkaline Phosphatase 82 Creatine Kinase 291 Creatine Kinase Index 0.3 CK-MB (CK-2) < 1.000 Troponin I 0.09 H D Total Protein 6.7 Albumin 2.8 L Urine Color Urine Appearance Urine pH Ur Specific Lovely Urine Protein Urine Glucose (UA) Urine Ketones Urine Blood Urine Nitrite Urine Bilirubin Urine Urobilinogen Ur Leukocyte Esterase Urine WBC (Auto) Urine RBC (Auto) Ur Epithelial Cells Urine Mucus Anti-A Titer Cancelled Blood Type Cancelled Antibody Screen Cancelled 11/03/17 11/04/17 11/04/17 21:44 02:20 02:40 WBC RBC Hgb Hct MCV MCH MCHC RDW Plt Count MPV Neutrophils % Lymphocytes % Monocytes % Eosinophils % Basophils % PT with INR INR PTT (Actin FS) VBG pH POC VBG pCO2 POC VBG pO2 Mixed VBG HCO3 Sodium Potassium Chloride Carbon Dioxide Anion Gap BUN Creatinine Creat Clearance w eGFR POC Glucometer [phone] Random Glucose Lactic Acid Calcium Total Bilirubin AST ALT Alkaline Phosphatase Creatine Kinase Creatine Kinase Index CK-MB (CK-2) Troponin I 0.08 H Total Protein Albumin Urine Color Yellow Urine Appearance Cloudy Urine pH 5.0 Ur Specific Lovely 1.018 Urine Protein 1+ H Urine Glucose (UA) 1+ H Urine Ketones 1+ H Urine Blood 1+ H Urine Nitrite Negative Urine Bilirubin Negative Urine Urobilinogen Negative Ur Leukocyte Esterase 3+ H Urine WBC (Auto) 254 Urine RBC (Auto) 27 Ur Epithelial Cells Rare Urine Mucus Rare Anti-A Titer Blood Type Antibody Screen 11/04/17 11/04/17 11/04/17 05:55 07:16 07:41 WBC 11.0 H RBC 2.91 L D Hgb 9.1 L D Hct 28.0 L D MCV 95.9 MCH 31.1 MCHC 32.4 RDW 13.2 Plt Count 273 D MPV 7.2 L Neutrophils % 77.1 Lymphocytes % 12.1 D Monocytes % 10.7 H Eosinophils % 0.0 Basophils % 0.1 PT with INR INR PTT (Actin FS) VBG pH POC VBG pCO2 POC VBG pO2 Mixed VBG HCO3 Sodium 145 Potassium 2.8 L* D Chloride 114 H D Carbon Dioxide 18 L Anion Gap 13 BUN 24 H D Creatinine 0.8 D Creat Clearance w eGFR POC Glucometer [phone] Random Glucose 205 H Lactic Acid Calcium 5.5 L* D Total Bilirubin AST ALT Alkaline Phosphatase Creatine Kinase Creatine Kinase Index CK-MB (CK-2) Troponin I 0.04 D Total Protein Albumin Urine Color Urine Appearance Urine pH Ur Specific Lovely Urine Protein Urine Glucose (UA) Urine Ketones Urine Blood Urine Nitrite Urine Bilirubin Urine Urobilinogen Ur Leukocyte Esterase Urine WBC (Auto) Urine RBC (Auto) Ur Epithelial Cells Urine Mucus Anti-A Titer Blood Type Antibody Screen Sinus rhythm with nonspecific ST abnormality in inferior leads Echo: Pending Imaging - Results Chest X-ray: Report Reviewed (Unremarkable) EKG: Report Reviewed Problem List - Problems (1) CKD (chronic kidney disease), stage II Code(s): N18.2 - CHRONIC KIDNEY DISEASE, STAGE 2 (MILD) (2) Dementia Code(s): F03.90 - UNSPECIFIED DEMENTIA WITHOUT BEHAVIORAL DISTURBANCE Qualifiers: Dementia type: unspecified type (3) Elevated troponin I level Code(s): R74.8 - ABNORMAL LEVELS OF OTHER SERUM ENZYMES (4) GERD (gastroesophageal reflux disease) Code(s): K21.9 - GASTRO-ESOPHAGEAL REFLUX DISEASE WITHOUT ESOPHAGITIS (5) HLD (hyperlipidemia) Code(s): E78.5 - HYPERLIPIDEMIA, UNSPECIFIED (6) HTN (hypertension) Code(s): I10 - ESSENTIAL (PRIMARY) HYPERTENSION Qualifiers: Hypertension type: essential hypertension Qualified Code(s): I10 - Essential (primary) hypertension (7) Leukocytosis Code(s): D72.829 - ELEVATED WHITE BLOOD CELL COUNT, UNSPECIFIED (8) PUD (peptic ulcer disease) Code(s): K27.9 - PEPTIC ULC, SITE UNSP, UNSP AC OR CHR, W/O HEMOR OR PERF (9) Sepsis Code(s): A41.9 - SEPSIS, UNSPECIFIED ORGANISM (10) UTI (urinary tract infection) Code(s): N39.0 - URINARY TRACT INFECTION, SITE NOT SPECIFIED Assessment/Plan 1. Clinical presentation compatible with urinary tract infection/urosepsis 2. Elevated troponin compatible with demand ischemia 3. Hypertension - currently normotensive to hypotensive due to sepsis 4. Hypercholesterolemia 5. Diabetes mellitus 6. Dementia - altered mental status due to above sepsis - improved 7. History of renal insufficiency - currently normal creatinine 8. Hypokalemia 9. Anemia PLAN: 1. Repeat ECG as monitor reveals baseline artiface - most likely sinus rhythm 2. Antibiotic coverage as per ID service. Cox culture including blood and urine 3. Transthoracic echocardiography to assess LV/RV and valvular function 4. Trend troponin 5. Supplement potassium. Monitor electrolytes and renal function 6. Continue Lisinopril as tolerated 7. Continue ASA if not contraindicated Further plans are to follow Samir Mulligan MD
[2017-11-04] MEDS ORDERED: KCL 10 MEQ IVPB 10 MEQ/100 ML INFUS.BAG IVPB ONE (11:49)
[2017-11-04] MEDS ORDERED: INSULIN REGULAR HUMAN 100 UNITS/ML *VIAL ONE (11:54)
[2017-11-04] MEDS: POTASSIUM CHLORIDE 10 MEQ in SODIUM CHLORIDE 100 ML IVPB SCH ×3 (11:56→14:49)
[2017-11-04] MEDS ORDERED: CALCIUM CHLORIDE 1 GM/10 ML *DISP.SYRIN ONE ×2 (12:20→12:21)
[2017-11-04] MEDS: D5-NS + 20 MEQ KCL - 20 MEQ/1,000 ML INFUS.BAG IV SCH ×2 (12:45→15:26)
[2017-11-04] MEDS ORDERED: KCL 10 MEQ IVPB 20 MEQ/200 ML INFUS.BAG IVPB ONE (13:35)
[2017-11-04] MEDS ORDERED: PNEUMOC 13-VAL CONJ-DIP CRM/PF 0.5 ML DISP.SYRIN IM ONE (16:00)
[2017-11-04] MEDS ORDERED: POTASSIUM CHLORIDE 30 MEQ in SODIUM CHLORIDE 250 ML IVPB ONE (17:30)
[2017-11-04] MEDS ORDERED: KCL 10 MEQ IVPB 10 MEQ/100 ML INFUS.BAG IVPB SCH (17:30)
[2017-11-04] MEDS ORDERED: POTASSIUM CHLORIDE TABS 10 MEQ TABLET.ER (FP) PO ONE ×2 (18:45→21:00)
[2017-11-04] MEDS: PIPERACILLIN/TAZOB 3.375 GM 3.375 GM in DEXTROSE 5%-WATER - 100 ML IVPB SCH (19:06)
[2017-11-04] MEDS: DOCUSATE SODIUM 100 MG CAPSULE (FP) PO SCH (21:20)
[2017-11-04] MEDS: MIRTAZAPINE 15 MG TABLET (FP) PO SCH (21:20)
[2017-11-04] MEDS: ATORVASTATIN CA 20 MG TABLET (FP) PO SCH (21:20)
[2017-11-04] MEDS ORDERED: VANCOMYCIN 1,000 MG in DEXTROSE 5%-WATER - 250 ML IVPB ONE (22:55)
[2017-11-05] MEDS: ZINC OXIDE 20% TOPICAL OINTMENT 30 GM TUBE TP SCH ×3 (02:00→22:03)
[2017-11-05] MEDS: PIPERACILLIN/TAZOB 3.375 GM 3.375 GM in DEXTROSE 5%-WATER - 100 ML IVPB SCH ×3 (03:58→17:33)
[2017-11-05] MEDS: INSULIN SLIDING SCALE (NOVOLOG) 1 VIAL SQ SCH ×3 (06:58→17:33)
[2017-11-05 07:50] LABS: BASO % 0.3 % (0-2.0); EOS % 2.4 % (0-4.5); HEMATOCRIT 29.3 % (35.4-49); HEMOGLOBIN 9.8 GM/dL (11.7-16.9); LYMPH % 13.1 % (8-40); MCH 31.8 pg (25.7-33.7); MCHC 33.4 g/dl (32.0-35.9); MEAN CELL VOLUME 95.1 fl (80-96); MEAN PLT VOLUME 7.4 fl (7.5-11.1); MONO % 10.1 % (3.8-10.2); NEUT % 74.1 % (42.8-82.8); PLATELET COUNT 268 K/MM3 (134-434); RBC 3.08 M/mm3 (4.00-5.60); RDW 13.4 % (11.9-15.9); WHITE BLOOD COUNT 8.2 K/mm3 (4.0-10.0)
[2017-11-05 08:01] LABS: ANION GAP 5 (8-16); BLOOD UREA NITROGEN 19 mg/dL (7-18); CHLORIDE 108 mmol/L (98-107); CO2 26 mmol/L (21-32); POTASSIUM 5.1 mmol/L (3.5-5.1); SGOT/AST 33 U/L (15-37); SGPT/ALT 23 U/L (12-78); SODIUM 139 mmol/L (136-145)
[2017-11-05 08:08] LABS: ALK PHOS 51 U/L (45-117); BILIRUBIN,TOTAL 0.2 mg/dL (0.2-1.0); CALCIUM 7.9 mg/dL (8.5-10.1); CREATININE 0.9 mg/dL (0.7-1.3); MAGNESIUM 1.4 mg/dL (1.8-2.4); TOT PROT 5.1 g/dl (6.4-8.2)
--- NOTE | 2017-11-05 08:08 | EKG ---
Test Reason : Blood Pressure : / mmHG Vent. Rate : 091 BPM Atrial Rate : 091 BPM P-R Int : 220 ms QRS Dur : 082 ms QT Int : 388 ms P-R-T Axes : 088 -24 041 degrees QTc Int : 477 ms SINUS RHYTHM WITH 1ST DEGREE A-V BLOCK NONSPECIFIC ST ABNORMALITY ABNORMAL ECG WHEN COMPARED WITH ECG OF 25-SEP-2013 19:35, PREMATURE VENTRICULAR COMPLEXES ARE NO LONGER PRESENT NE INTERVAL HAS INCREASED T WAVE AMPLITUDE HAS INCREASED IN ANTERIOR LEADS Confirmed by DANY SIM, LESA ([id number]) on 11/05/2017 8:08:12 AM Referred By: Confirmed By:LESA SAENZ MD
--- NOTE | 2017-11-05 08:24 | PN ---
Progress Note, Physician Chief Complaint: ID Started on Zosyn here in hospital Complains of chest pains - Current Medication List Current Medications: Active Medications Acetaminophen (Tylenol -) 650 mg PO Q6H PRN PRN Reason: PAIN OR FEVER Last Admin: 11/04/17 21:28 Dose: 650 mg Aspirin (Asa -) 81 mg PO DAILY [facility] Last Admin: 11/04/17 09:56 Dose: 81 mg Atorvastatin Calcium (Lipitor -) 20 mg PO [facility] Last Admin: 11/04/17 21:20 Dose: 20 mg Cholecalciferol (Vitamin D3 -) 1,000 unit PO DAILY [facility] Last Admin: 11/04/17 09:57 Dose: 1,000 unit Citalopram Hydrobromide (Celexa -) 10 mg PO DAILY [facility] Last Admin: 11/04/17 09:56 Dose: 10 mg Cyanocobalamin (Vitamin B12 -) 100 mcg PO DAILY [facility] Last Admin: 11/04/17 09:57 Dose: 100 mcg Docusate Sodium (Colace -) 200 mg PO [facility] Last Admin: 11/04/17 21:20 Dose: 200 mg Dextrose/Sodium Chloride (Dextrose 5%-Normal Saline+20 Meq Kcl -) 20 meq in 1, 000 mls @ 125 mls/hr IV ASDIR [facility] Last Admin: 11/04/17 15:26 Dose: 125 mls/hr Piperacillin Sod/Tazobactam (Sod 3.375 gm/ Dextrose) 100 mls @ 200 mls/hr IVPB Q8H-IV [facility] Last Admin: 11/05/17 03:58 Dose: 200 mls/hr Insulin Aspart (Novolog Vial Sliding Scale -) 1 vial SQ TIDAC [facility] PRN Reason: Protocol Last Admin: 11/05/17 06:58 Dose: 8 units Lisinopril (Prinivil) 2.5 mg PO DAILY [facility] Last Admin: 11/04/17 09:56 Dose: Not Given Mirtazapine (Remeron -) 7.5 mg PO [facility] Last Admin: 11/04/17 21:20 Dose: 7.5 mg Multi-Ingredient Ointment (Zinc Oxide) 1 applic TP BID [facility] Last Admin: 11/05/17 02:00 Dose: 1 applic Multivitamins/Minerals/Vitamin C (Tab-A-Vit -) 1 tab PO DAILY [facility] Last Admin: 11/04/17 09:56 Dose: 1 tab Pantoprazole Sodium (Protonix -) 20 mg PO DAILY [facility] Last Admin: 11/04/17 09:56 Dose: 20 mg Tamsulosin HCl (Flomax -) 0.4 mg PO DAILY@0830 [facility] Last Admin: 11/04/17 09:18 Dose: 0.4 mg Timolol Maleate (Timoptic 0.5%) 1 drop OD BID [facility] Last Admin: 11/04/17 21:59 Dose: 1 drop - Objective Vital Signs: Vital Signs Temperature 98.3 F 11/05/17 05:00 Pulse Rate 94 H 11/05/17 05:00 Respiratory Rate 20 11/05/17 05:00 Blood Pressure 120/57 11/05/17 05:00 O2 Sat by Pulse Oximetry (%) 99 11/04/17 21:00 Constitutional: Yes: Well Nourished, No Distress Neck: Yes: WNL, Supple Cardiovascular: Yes: Regular Rate and Rhythm, S1, S2 Respiratory: Yes: WNL, Regular, CTA Bilaterally Gastrointestinal: Yes: WNL, Normal Bowel Sounds, Soft. No: Tenderness, Tenderness, Epigastrium Edema: No Labs: CBC, BMP 11/05/17 06:38 INR, PTT INR 1.25 (0.82-1.09) H 11/03/17 20:40 Assessment/Plan Laboratory Tests 11/04/17 11/04/17 11/05/17 02:40 07:16 06:38 WBC 8.2 Hgb 9.8 L Hct 29.3 L Plt Count 268 BUN 24 H D Creatinine 0.8 D Urine RBC (Auto) 27 Assessment ON therapy for urinary infection. Zosyn Demand ischemia chest pains Plan Continue IV therapy for now Almas SIM
[2017-11-05 08:36] LABS: GLUCOSE,RANDOM 320 mg/dL (74-106)
[2017-11-05] MEDS ORDERED: SODIUM CHLORIDE 1,000 ML IV SCH (09:30)
--- NOTE | 2017-11-05 09:36 | PN ---
Progress Note, Physician History of Present Illness: patient seen and examined. Awake and comfortable. looks better afebrile denies pain. - Current Medication List Current Medications: Active Medications Acetaminophen (Tylenol -) 650 mg PO Q6H PRN PRN Reason: PAIN OR FEVER Last Admin: 11/04/17 21:28 Dose: 650 mg Aspirin (Asa -) 81 mg PO DAILY [facility] Last Admin: 11/04/17 09:56 Dose: 81 mg Atorvastatin Calcium (Lipitor -) 20 mg PO [facility] Last Admin: 11/04/17 21:20 Dose: 20 mg Cholecalciferol (Vitamin D3 -) 1,000 unit PO DAILY [facility] Last Admin: 11/04/17 09:57 Dose: 1,000 unit Citalopram Hydrobromide (Celexa -) 10 mg PO DAILY [facility] Last Admin: 11/04/17 09:56 Dose: 10 mg Cyanocobalamin (Vitamin B12 -) 100 mcg PO DAILY [facility] Last Admin: 11/04/17 09:57 Dose: 100 mcg Docusate Sodium (Colace -) 200 mg PO [facility] Last Admin: 11/04/17 21:20 Dose: 200 mg Piperacillin Sod/Tazobactam (Sod 3.375 gm/ Dextrose) 100 mls @ 200 mls/hr IVPB Q8H-IV [facility] Last Admin: 11/05/17 03:58 Dose: 200 mls/hr Sodium Chloride (Normal Saline -) 1,000 mls @ 83 mls/hr IV ASDIR [facility] Insulin Aspart (Novolog Vial Sliding Scale -) 1 vial SQ TIDAC [facility] PRN Reason: Protocol Last Admin: 11/05/17 06:58 Dose: 8 units Insulin Detemir (Levemir Vial) 10 units SQ [facility] Lisinopril (Prinivil) 2.5 mg PO DAILY [facility] Last Admin: 11/04/17 09:56 Dose: Not Given Mirtazapine (Remeron -) 7.5 mg PO [facility] Last Admin: 11/04/17 21:20 Dose: 7.5 mg Multi-Ingredient Ointment (Zinc Oxide) 1 applic TP BID [facility] Last Admin: 11/05/17 02:00 Dose: 1 applic Multivitamins/Minerals/Vitamin C (Tab-A-Vit -) 1 tab PO DAILY [facility] Last Admin: 11/04/17 09:56 Dose: 1 tab Pantoprazole Sodium (Protonix -) 20 mg PO DAILY [facility] Last Admin: 11/04/17 09:56 Dose: 20 mg Tamsulosin HCl (Flomax -) 0.4 mg PO DAILY@0830 [facility] Last Admin: 11/04/17 09:18 Dose: 0.4 mg Timolol Maleate (Timoptic 0.5%) 1 drop OD BID [facility] Last Admin: 11/04/17 21:59 Dose: 1 drop - Objective Vital Signs: Vital Signs Temperature 98.3 F 11/05/17 05:00 Pulse Rate 94 H 11/05/17 05:00 Respiratory Rate 20 11/05/17 05:00 Blood Pressure 120/57 11/05/17 05:00 O2 Sat by Pulse Oximetry (%) 99 11/04/17 21:00 Constitutional: Yes: No Distress, Calm Eyes: Yes: Conjunctiva Clear Neck: Yes: Supple Cardiovascular: Yes: Regular Rate and Rhythm Respiratory: Yes: CTA Bilaterally Gastrointestinal: Yes: Normal Bowel Sounds, Soft Edema: No Neurological: Yes: Tremors, Other (tremors consistant with parkinsonism +) Labs: CBC, BMP 11/05/17 06:38 11/05/17 06:38 INR, PTT INR 1.25 (0.82-1.09) H 11/03/17 20:40 - ....Imaging Other: Other (echo - reviewed-- mild diastolic dysfunction - otherwise ok.) Problem List - Problems (1) Fever Code(s): R50.9 - FEVER, UNSPECIFIED (2) Dementia Code(s): F03.90 - UNSPECIFIED DEMENTIA WITHOUT BEHAVIORAL DISTURBANCE Qualifiers: Dementia type: unspecified type (3) HTN (hypertension) Code(s): I10 - ESSENTIAL (PRIMARY) HYPERTENSION Qualifiers: Hypertension type: essential hypertension Qualified Code(s): I10 - Essential (primary) hypertension (4) UTI (urinary tract infection) Code(s): N39.0 - URINARY TRACT INFECTION, SITE NOT SPECIFIED (5) Electrolyte imbalance Code(s): E87.8 - OTH DISORDERS OF ELECTROLYTE AND FLUID BALANCE, NEC (6) Hypotension Code(s): I95.9 - HYPOTENSION, UNSPECIFIED Assessment/Plan clinically better continue antibiotics Follow-up cultures mild hydration change to ns as sugar running high add basal insulin Follow-up labs noted Will follow Discussed with nursing staff. physical therapy oob - chair will follow
--- NOTE | 2017-11-05 10:23 | EKG ---
Test Reason : Blood Pressure : / mmHG Vent. Rate : 054 BPM Atrial Rate : 054 BPM P-R Int : 118 ms QRS Dur : 080 ms QT Int : 436 ms P-R-T Axes : 025 -17 020 degrees QTc Int : 413 ms SINUS BRADYCARDIA OTHERWISE NORMAL ECG WHEN COMPARED WITH ECG OF 04-NOV-2017 11:04, SINUS RHYTHM HAS REPLACED JUNCTIONAL RHYTHM Confirmed by DANY SIM, LESA ([id number]) on 11/05/2017 10:23:52 AM Referred By: Mali BORJA Confirmed By:LESA SAENZ MD
[2017-11-05] MEDS ORDERED: PT OWN MED DRAWER 7, Y5N ONE ×3 (10:36→21:34)
[2017-11-05] MEDS: TAMSULOSIN HCL 0.4 MG CAP.ER.24H (FP) PO SCH (10:46)
[2017-11-05] MEDS: LISINOPRIL 5 MG TABLET (FP) PO SCH (10:46)
[2017-11-05] MEDS: CHOLECALCIFEROL (VITAMIN D3) 1,000 UNIT TABLET (FP) PO SCH (10:46)
[2017-11-05] MEDS: PANTOPRAZOLE 20 MG TABLET (FP) PO SCH (10:46)
[2017-11-05] MEDS: TIMOLOL 0.5% OPHTHALMIC SOL 5 ML BOTTLE OD SCH ×2 (10:46→22:04)
[2017-11-05] MEDS: CITALOPRAM HYDROBROMIDE 10 MG TABLET (FP) PO SCH (10:46)
[2017-11-05] MEDS: MULTIVITAMINS (DAILY MVI) TABLET (FP) PO SCH (10:46)
[2017-11-05] MEDS: ASPIRIN 81 MG CHEWABLE TABLETS PO SCH (10:46)
[2017-11-05] MEDS: CYANOCOBALAMIN (VITAMIN B-12) 100 MCG TABLET PO SCH (10:46)
--- NOTE | 2017-11-05 11:34 | PN ---
Progress Note, Physician History of Present Illness: No complaints. - Current Medication List Current Medications: Active Medications Acetaminophen (Tylenol -) 650 mg PO Q6H PRN PRN Reason: PAIN OR FEVER Last Admin: 11/04/17 21:28 Dose: 650 mg Aspirin (Asa -) 81 mg PO DAILY [facility] Last Admin: 11/05/17 10:46 Dose: 81 mg Atorvastatin Calcium (Lipitor -) 20 mg PO [facility] Last Admin: 11/04/17 21:20 Dose: 20 mg Cholecalciferol (Vitamin D3 -) 1,000 unit PO DAILY [facility] Last Admin: 11/05/17 10:46 Dose: 1,000 unit Citalopram Hydrobromide (Celexa -) 10 mg PO DAILY [facility] Last Admin: 11/05/17 10:46 Dose: 10 mg Cyanocobalamin (Vitamin B12 -) 100 mcg PO DAILY [facility] Last Admin: 11/05/17 10:46 Dose: 100 mcg Docusate Sodium (Colace -) 200 mg PO [facility] Last Admin: 11/04/17 21:20 Dose: 200 mg Piperacillin Sod/Tazobactam (Sod 3.375 gm/ Dextrose) 100 mls @ 200 mls/hr IVPB Q8H-IV [facility] Last Admin: 11/05/17 10:45 Dose: 200 mls/hr Sodium Chloride (Normal Saline -) 1,000 mls @ 83 mls/hr IV ASDIR [facility] Last Admin: 11/05/17 10:45 Dose: 83 mls/hr Insulin Aspart (Novolog Vial Sliding Scale -) 1 vial SQ TIDAC [facility] PRN Reason: Protocol Last Admin: 11/05/17 06:58 Dose: 8 units Insulin Detemir (Levemir Vial) 10 units SQ [facility] Lisinopril (Prinivil) 2.5 mg PO DAILY [facility] Last Admin: 11/05/17 10:46 Dose: 2.5 mg Mirtazapine (Remeron -) 7.5 mg PO [facility] Last Admin: 11/04/17 21:20 Dose: 7.5 mg Multi-Ingredient Ointment (Zinc Oxide) 1 applic TP BID [facility] Last Admin: 11/05/17 10:45 Dose: 1 applic Multivitamins/Minerals/Vitamin C (Tab-A-Vit -) 1 tab PO DAILY [facility] Last Admin: 11/05/17 10:46 Dose: 1 tab Pantoprazole Sodium (Protonix -) 20 mg PO DAILY [facility] Last Admin: 11/05/17 10:46 Dose: 20 mg Tamsulosin HCl (Flomax -) 0.4 mg PO DAILY@0830 [facility] Last Admin: 11/05/17 10:46 Dose: 0.4 mg Timolol Maleate (Timoptic 0.5%) 1 drop OD BID [facility] Last Admin: 11/05/17 10:46 Dose: 1 drop - Objective Vital Signs: Vital Signs Temperature 98.3 F 11/05/17 05:00 Pulse Rate 94 H 11/05/17 05:00 Respiratory Rate 20 11/05/17 05:00 Blood Pressure 120/57 11/05/17 05:00 O2 Sat by Pulse Oximetry (%) 99 11/04/17 21:00 Constitutional: Yes: No Distress, Calm, Thin Neck: Yes: Supple Cardiovascular: Yes: Regular Rate and Rhythm Respiratory: Yes: Regular, Diminished, On Nasal O2 Gastrointestinal: Yes: Normal Bowel Sounds, Soft Edema: No Labs: CBC, BMP 11/05/17 06:38 11/05/17 06:38 INR, PTT INR 1.25 (0.82-1.09) H 11/03/17 20:40 - ....Imaging EKG: Report Reviewed (SB @ 54) Problem List - Problems (1) Demand ischemia Code(s): I24.8 - OTHER FORMS OF ACUTE ISCHEMIC HEART DISEASE (2) Dementia Code(s): F03.90 - UNSPECIFIED DEMENTIA WITHOUT BEHAVIORAL DISTURBANCE Qualifiers: Dementia type: unspecified type (3) Elevated troponin I level Code(s): R74.8 - ABNORMAL LEVELS OF OTHER SERUM ENZYMES (4) HLD (hyperlipidemia) Code(s): E78.5 - HYPERLIPIDEMIA, UNSPECIFIED Qualifiers: Hyperlipidemia type: pure hypercholesterolemia Qualified Code(s): E78.00 - Pure hypercholesterolemia, unspecified; E78.0 - Pure hypercholesterolemia (5) HTN (hypertension) Code(s): I10 - ESSENTIAL (PRIMARY) HYPERTENSION Qualifiers: Hypertension type: essential hypertension Qualified Code(s): I10 - Essential (primary) hypertension (6) UTI (urinary tract infection) Code(s): N39.0 - URINARY TRACT INFECTION, SITE NOT SPECIFIED Qualifiers: Urinary tract infection type: site unspecified (7) Anemia Code(s): D64.9 - ANEMIA, UNSPECIFIED Qualifiers: Anemia type: other cause Assessment/Plan 11/04/2017 Echo: Normal biventricular size and fxn, mild MR, TR, , MG 5.3 mmHg 1. Urinary tract infection/urosepsis 2. Elevated troponin compatible with demand ischemia 3. Hypertension - currently normotensive to hypotensive due to sepsis 4. Hypercholesterolemia 5. Diabetes mellitus 6. Dementia - altered mental status due to above sepsis - improved 7. History of renal insufficiency - currently normal creatinine 8. Hypokalemia resolved 9. Anemia PLAN: 1. Antibiotic coverage as per ID service with f/u C&S 2. Troponins have peaked 3. Monitor electrolytes and renal function, d/c telemetry 4. Continue ASA 81 qd, Lipitor 20 qhs, Lisinopril 2.5 qd
[2017-11-05] MEDS ORDERED: INSULIN (NOVOLOG) ASPART 100 UNITS/ML 10ML VIAL ONE ×2 (11:59→17:16)
[2017-11-05] MEDS ORDERED: INSULIN DETEMIR 100 UNITS/ML MDV SQ ONE (17:16)
[2017-11-05] MEDS: MIRTAZAPINE 15 MG TABLET (FP) PO SCH (21:59)
[2017-11-05] MEDS: DOCUSATE SODIUM 100 MG CAPSULE (FP) PO SCH (21:59)
[2017-11-05] MEDS: ATORVASTATIN CA 20 MG TABLET (FP) PO SCH (21:59)
[2017-11-05] MEDS ORDERED: INSULIN DETEMIR 100 UNITS/ML MDV SQ SCH (22:00)
[2017-11-06] MEDS: PIPERACILLIN/TAZOB 3.375 GM 3.375 GM in DEXTROSE 5%-WATER - 100 ML IVPB SCH ×2 (02:30→10:27)
[2017-11-06] MEDS: INSULIN SLIDING SCALE (NOVOLOG) 1 VIAL SQ SCH ×3 (06:23→18:01)
--- NOTE | 2017-11-06 08:40 | PN ---
Progress Note, Physician History of Present Illness: patient seen and examined. Awake and comfortable. much better afebrile eating food. denies pain. - Current Medication List Current Medications: Active Medications Acetaminophen (Tylenol -) 650 mg PO Q6H PRN PRN Reason: PAIN OR FEVER Last Admin: 11/04/17 21:28 Dose: 650 mg Aspirin (Asa -) 81 mg PO DAILY [facility] Last Admin: 11/05/17 10:46 Dose: 81 mg Atorvastatin Calcium (Lipitor -) 20 mg PO HS [facility] Last Admin: 11/05/17 21:59 Dose: 20 mg Cholecalciferol (Vitamin D3 -) 1,000 unit PO DAILY [facility] Last Admin: 11/05/17 10:46 Dose: 1,000 unit Citalopram Hydrobromide (Celexa -) 10 mg PO DAILY [facility] Last Admin: 11/05/17 10:46 Dose: 10 mg Cyanocobalamin (Vitamin B12 -) 100 mcg PO DAILY [facility] Last Admin: 11/05/17 10:46 Dose: 100 mcg Docusate Sodium (Colace -) 200 mg PO HS [facility] Last Admin: 11/05/17 21:59 Dose: 200 mg Piperacillin Sod/Tazobactam (Sod 3.375 gm/ Dextrose) 100 mls @ 200 mls/hr IVPB Q8H-IV [facility] Last Admin: 11/06/17 02:30 Dose: 200 mls/hr Sodium Chloride (Normal Saline -) 1,000 mls @ 83 mls/hr IV ASDIR [facility] Last Admin: 11/05/17 10:45 Dose: 83 mls/hr Insulin Aspart (Novolog Vial Sliding Scale -) 1 vial SQ TIDAC [facility] PRN Reason: Protocol Last Admin: 11/06/17 06:23 Dose: 4 units Insulin Detemir (Levemir Vial) 10 units SQ [facility] Last Admin: 11/05/17 22:03 Dose: 10 units Lisinopril (Prinivil) 2.5 mg PO DAILY [facility] Last Admin: 11/05/17 10:46 Dose: 2.5 mg Mirtazapine (Remeron -) 7.5 mg PO [facility] Last Admin: 11/05/17 21:59 Dose: 7.5 mg Multi-Ingredient Ointment (Zinc Oxide) 1 applic TP BID [facility] Last Admin: 11/05/17 22:03 Dose: 1 applic Multivitamins/Minerals/Vitamin C (Tab-A-Vit -) 1 tab PO DAILY [facility] Last Admin: 11/05/17 10:46 Dose: 1 tab Pantoprazole Sodium (Protonix -) 20 mg PO DAILY [facility] Last Admin: 11/05/17 10:46 Dose: 20 mg Tamsulosin HCl (Flomax -) 0.4 mg PO DAILY@0830 [facility] Last Admin: 11/05/17 10:46 Dose: 0.4 mg Timolol Maleate (Timoptic 0.5%) 1 drop OD BID [facility] Last Admin: 11/05/17 22:04 Dose: 1 drop - Objective Vital Signs: Vital Signs Temperature 98.3 F 11/06/17 06:00 Pulse Rate 65 11/06/17 06:00 Respiratory Rate 20 11/06/17 06:00 Blood Pressure 117/67 11/06/17 06:00 O2 Sat by Pulse Oximetry (%) 96 11/05/17 21:00 Constitutional: Yes: No Distress, Calm Eyes: Yes: Conjunctiva Clear Neck: Yes: Supple Cardiovascular: Yes: Regular Rate and Rhythm Respiratory: Yes: CTA Bilaterally Gastrointestinal: Yes: Soft Edema: No Neurological: Yes: Alert, Tremors (parkinsonism ?) Psychiatric: Yes: Alert Labs: CBC, BMP 11/05/17 06:38 11/05/17 06:38 INR, PTT INR 1.25 (0.82-1.09) H 11/03/17 20:40 Problem List - Problems (1) Fever Code(s): R50.9 - FEVER, UNSPECIFIED (2) Dementia Code(s): F03.90 - UNSPECIFIED DEMENTIA WITHOUT BEHAVIORAL DISTURBANCE Qualifiers: Dementia type: unspecified type (3) HTN (hypertension) Code(s): I10 - ESSENTIAL (PRIMARY) HYPERTENSION Qualifiers: Hypertension type: essential hypertension Qualified Code(s): I10 - Essential (primary) hypertension (4) UTI (urinary tract infection) Code(s): N39.0 - URINARY TRACT INFECTION, SITE NOT SPECIFIED Qualifiers: Urinary tract infection type: site unspecified (5) Electrolyte imbalance Code(s): E87.8 - OTH DISORDERS OF ELECTROLYTE AND FLUID BALANCE, NEC (6) Hypotension Code(s): I95.9 - HYPOTENSION, UNSPECIFIED (7) Parkinsonism Code(s): G20 - PARKINSON'S DISEASE Assessment/Plan clinically much better continue antibiotics per i/d cultures -ve d/c in am abx ? will discuss with i/d eating better d/c fluids monitor bgm - better parkinsonism ? will consult neurology d/c tele Discussed with nursing staff. physical therapy oob - chair will follow
[2017-11-06] MEDS ORDERED: PT OWN MED DRAWER 7, Y5N ONE ×2 (10:17→22:01)
[2017-11-06] MEDS: ASPIRIN 81 MG CHEWABLE TABLETS PO SCH (10:22)
[2017-11-06] MEDS: TAMSULOSIN HCL 0.4 MG CAP.ER.24H (FP) PO SCH (10:22)
[2017-11-06] MEDS: CITALOPRAM HYDROBROMIDE 10 MG TABLET (FP) PO SCH (10:23)
[2017-11-06] MEDS: PANTOPRAZOLE 20 MG TABLET (FP) PO SCH (10:25)
[2017-11-06] MEDS: MULTIVITAMINS (DAILY MVI) TABLET (FP) PO SCH (10:25)
[2017-11-06] MEDS: TIMOLOL 0.5% OPHTHALMIC SOL 5 ML BOTTLE OD SCH ×2 (10:25→22:01)
[2017-11-06] MEDS: LISINOPRIL 5 MG TABLET (FP) PO SCH (10:25)
[2017-11-06] MEDS: CYANOCOBALAMIN (VITAMIN B-12) 100 MCG TABLET PO SCH (10:25)
[2017-11-06] MEDS: ZINC OXIDE 20% TOPICAL OINTMENT 30 GM TUBE TP SCH ×2 (10:26→22:02)
[2017-11-06] MEDS: CHOLECALCIFEROL (VITAMIN D3) 1,000 UNIT TABLET (FP) PO SCH (10:26)
--- NOTE | 2017-11-06 11:37 | PN ---
Progress Note, Physician History of Present Illness: No complaints. Afebrile, sensorium improved. - Current Medication List Current Medications: Active Medications Acetaminophen (Tylenol -) 650 mg PO Q6H PRN PRN Reason: PAIN OR FEVER Last Admin: 11/04/17 21:28 Dose: 650 mg Aspirin (Asa -) 81 mg PO DAILY [facility] Last Admin: 11/06/17 10:22 Dose: 81 mg Atorvastatin Calcium (Lipitor -) 20 mg PO HS [facility] Last Admin: 11/05/17 21:59 Dose: 20 mg Cholecalciferol (Vitamin D3 -) 1,000 unit PO DAILY [facility] Last Admin: 11/06/17 10:26 Dose: 1,000 unit Citalopram Hydrobromide (Celexa -) 10 mg PO DAILY [facility] Last Admin: 11/06/17 10:23 Dose: 10 mg Cyanocobalamin (Vitamin B12 -) 100 mcg PO DAILY [facility] Last Admin: 11/06/17 10:25 Dose: 100 mcg Docusate Sodium (Colace -) 200 mg PO [facility] Last Admin: 11/05/17 21:59 Dose: 200 mg Piperacillin Sod/Tazobactam (Sod 3.375 gm/ Dextrose) 100 mls @ 200 mls/hr IVPB Q8H-IV [facility] Last Admin: 11/06/17 10:27 Dose: 200 mls/hr Insulin Aspart (Novolog Vial Sliding Scale -) 1 vial SQ TIDAC [facility] PRN Reason: Protocol Last Admin: 11/06/17 11:31 Dose: 6 units Insulin Detemir (Levemir Vial) 14 units SQ [facility] Lisinopril (Prinivil) 2.5 mg PO DAILY [facility] Last Admin: 11/06/17 10:25 Dose: 2.5 mg Mirtazapine (Remeron -) 7.5 mg PO HS [facility] Last Admin: 11/05/17 21:59 Dose: 7.5 mg Multi-Ingredient Ointment (Zinc Oxide) 1 applic TP BID [facility] Last Admin: 11/06/17 10:26 Dose: 1 applic Multivitamins/Minerals/Vitamin C (Tab-A-Vit -) 1 tab PO DAILY [facility] Last Admin: 11/06/17 10:25 Dose: 1 tab Pantoprazole Sodium (Protonix -) 20 mg PO DAILY [facility] Last Admin: 11/06/17 10:25 Dose: 20 mg Tamsulosin HCl (Flomax -) 0.4 mg PO DAILY@0830 [facility] Last Admin: 11/06/17 10:22 Dose: 0.4 mg Timolol Maleate (Timoptic 0.5%) 1 drop OD BID [facility] Last Admin: 11/06/17 10:25 Dose: 1 drop - Objective Vital Signs: Vital Signs Temperature 98.3 F 11/06/17 06:00 Pulse Rate 65 11/06/17 06:00 Respiratory Rate 20 11/06/17 06:00 Blood Pressure 117/67 11/06/17 06:00 O2 Sat by Pulse Oximetry (%) 96 11/05/17 21:00 Constitutional: Yes: No Distress, Calm, Thin Neck: Yes: Supple Cardiovascular: Yes: Regular Rate and Rhythm Respiratory: Yes: Regular, Diminished, On Nasal O2 Gastrointestinal: Yes: Soft, Hypoactive Bowel Sounds Edema: No Labs: CBC, BMP 11/05/17 06:38 11/05/17 06:38 INR, PTT INR 1.25 (0.82-1.09) H 11/03/17 20:40 - ....Imaging EKG: Report Reviewed (Tele: SR) Problem List - Problems (1) Demand ischemia Code(s): I24.8 - OTHER FORMS OF ACUTE ISCHEMIC HEART DISEASE (2) Dementia Code(s): F03.90 - UNSPECIFIED DEMENTIA WITHOUT BEHAVIORAL DISTURBANCE Qualifiers: Dementia type: unspecified type (3) Elevated troponin I level Code(s): R74.8 - ABNORMAL LEVELS OF OTHER SERUM ENZYMES (4) HLD (hyperlipidemia) Code(s): E78.5 - HYPERLIPIDEMIA, UNSPECIFIED Qualifiers: Hyperlipidemia type: pure hypercholesterolemia Qualified Code(s): E78.00 - Pure hypercholesterolemia, unspecified; E78.0 - Pure hypercholesterolemia (5) HTN (hypertension) Code(s): I10 - ESSENTIAL (PRIMARY) HYPERTENSION Qualifiers: Hypertension type: essential hypertension Qualified Code(s): I10 - Essential (primary) hypertension (6) UTI (urinary tract infection) Code(s): N39.0 - URINARY TRACT INFECTION, SITE NOT SPECIFIED Qualifiers: Urinary tract infection type: site unspecified (7) Anemia Code(s): D64.9 - ANEMIA, UNSPECIFIED Qualifiers: Anemia type: other cause Assessment/Plan 11/04/2017 Echo: Normal biventricular size and fxn, mild MR, TR, , MG 5.3 mmHg 1. Urinary tract infection/urosepsis resolving 2. Elevated troponin compatible with demand ischemia 3. Hypertension 4. Hypercholesterolemia 5. Diabetes mellitus 6. Dementia - altered mental status due to above sepsis - improved 7. History of renal insufficiency - currently normal creatinine 8. Hypokalemia resolved 9. Anemia PLAN: 1. Empiric antibiotic coverage as per ID service with C&S NGTD 2. Troponins have peaked 3. Monitor electrolytes and renal function, d/c telemetry 4. Continue ASA 81 qd, Lipitor 20 qhs, Lisinopril 2.5 qd 5. GI prophylaxis, start DVT prophylaxis
--- NOTE | 2017-11-06 15:47 | PN ---
Progress Note, Physician History of Present Illness: Awake, responsive No complaints Afebrile WBC improved - Current Medication List Current Medications: Active Medications Acetaminophen (Tylenol -) 650 mg PO Q6H PRN PRN Reason: PAIN OR FEVER Last Admin: 11/04/17 21:28 Dose: 650 mg Aspirin (Asa -) 81 mg PO DAILY [facility] Last Admin: 11/06/17 10:22 Dose: 81 mg Atorvastatin Calcium (Lipitor -) 20 mg PO HS [facility] Last Admin: 11/05/17 21:59 Dose: 20 mg Cholecalciferol (Vitamin D3 -) 1,000 unit PO DAILY [facility] Last Admin: 11/06/17 10:26 Dose: 1,000 unit Citalopram Hydrobromide (Celexa -) 10 mg PO DAILY [facility] Last Admin: 11/06/17 10:23 Dose: 10 mg Cyanocobalamin (Vitamin B12 -) 100 mcg PO DAILY [facility] Last Admin: 11/06/17 10:25 Dose: 100 mcg Docusate Sodium (Colace -) 200 mg PO HS [facility] Last Admin: 11/05/17 21:59 Dose: 200 mg Enoxaparin Sodium (Lovenox -) 40 mg SQ DAILY [facility] Piperacillin Sod/Tazobactam (Sod 3.375 gm/ Dextrose) 100 mls @ 200 mls/hr IVPB Q8H-IV [facility] Last Admin: 11/06/17 10:27 Dose: 200 mls/hr Insulin Aspart (Novolog Vial Sliding Scale -) 1 vial SQ TIDAC [facility] PRN Reason: Protocol Last Admin: 11/06/17 11:31 Dose: 6 units Insulin Detemir (Levemir Vial) 14 units SQ [facility] Lisinopril (Prinivil) 2.5 mg PO DAILY [facility] Last Admin: 11/06/17 10:25 Dose: 2.5 mg Mirtazapine (Remeron -) 7.5 mg PO HS [facility] Last Admin: 11/05/17 21:59 Dose: 7.5 mg Multi-Ingredient Ointment (Zinc Oxide) 1 applic TP BID [facility] Last Admin: 11/06/17 10:26 Dose: 1 applic Multivitamins/Minerals/Vitamin C (Tab-A-Vit -) 1 tab PO DAILY [facility] Last Admin: 11/06/17 10:25 Dose: 1 tab Pantoprazole Sodium (Protonix -) 20 mg PO DAILY [facility] Last Admin: 11/06/17 10:25 Dose: 20 mg Tamsulosin HCl (Flomax -) 0.4 mg PO DAILY@0830 [facility] Last Admin: 11/06/17 10:22 Dose: 0.4 mg Timolol Maleate (Timoptic 0.5%) 1 drop OD BID [facility] Last Admin: 11/06/17 10:25 Dose: 1 drop - Objective Vital Signs: Vital Signs Temperature 98.3 F 11/06/17 06:00 Pulse Rate 65 11/06/17 06:00 Respiratory Rate 20 11/06/17 06:00 Blood Pressure 117/67 11/06/17 06:00 O2 Sat by Pulse Oximetry (%) 96 11/05/17 21:00 Constitutional: Yes: No Distress, Thin Eyes: Yes: Conjunctiva Clear Cardiovascular: Yes: Regular Rate and Rhythm, S1, S2 Respiratory: Yes: CTA Bilaterally Gastrointestinal: Yes: Normal Bowel Sounds, Soft. No: Tenderness Edema: No Labs: CBC, BMP 11/05/17 06:38 11/05/17 06:38 INR, PTT INR 1.25 (0.82-1.09) H 11/03/17 20:40 Assessment/Plan UTI/Sepsis secondary to UTI Improved Substitute po Augmentin x 7d
[2017-11-06] MEDS: AMOX TR/POT CLAV 875MG/125MG TABLETS (FP) PO SCH (18:06)
[2017-11-06] MEDS: MIRTAZAPINE 15 MG TABLET (FP) PO SCH (21:51)
[2017-11-06] MEDS: DOCUSATE SODIUM 100 MG CAPSULE (FP) PO SCH (21:51)
[2017-11-06] MEDS: ATORVASTATIN CA 20 MG TABLET (FP) PO SCH (21:51)
[2017-11-06] MEDS ORDERED: INSULIN DETEMIR 100 UNITS/ML MDV SQ SCH (22:00)
[2017-11-07] MEDS: INSULIN SLIDING SCALE (NOVOLOG) 1 VIAL SQ SCH ×2 (06:09→12:11)
--- NOTE | 2017-11-07 09:57 | DS ---
Physical Examination Vital Signs: Vital Signs Temperature 97.5 F L 11/07/17 06:00 Pulse Rate 64 11/07/17 06:00 Respiratory Rate 18 11/07/17 06:00 Blood Pressure 138/71 11/07/17 06:00 O2 Sat by Pulse Oximetry (%) 96 11/06/17 21:00 Findings/Remarks: comfortable No complaints Alert and awake Afebrile Constitutional: Yes: No Distress, Calm Eyes: Yes: Conjunctiva Clear Neck: Yes: Supple Cardiovascular: Yes: Regular Rate and Rhythm Respiratory: Yes: CTA Bilaterally Gastrointestinal: Yes: Normal Bowel Sounds, Soft Edema: No Neurological: Yes: Alert Labs: CBC, BMP 11/05/17 06:38 11/05/17 06:38 Discharge Summary Reason For Visit: UTI Current Active Problems Anemia (Acute) CKD (chronic kidney disease), 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 (Acute) DVT prophylaxis (Acute) Demand ischemia (Acute) Dementia (Acute) Electrolyte imbalance (Acute) Elevated troponin I level (Acute) Fever (Acute) GERD (gastroesophageal reflux disease) (Acute) HLD (hyperlipidemia) (Acute) HTN (hypertension) (Acute) Hypotension (Acute) Hypoxic (Acute) Leukocytosis (Acute) MDD (major depressive disorder) (Acute) PUD (peptic ulcer disease) (Acute) Parkinsonism (Acute) Sepsis (Acute) UTI (urinary tract infection) (Acute) Hospital Course: This is a 87 y/o man from [facility] sent in for + urine culture- proteus miraballis, who was started on Ceftriaxone at the facility patient noted to have fever of 102 and confused Treated with broad-spectrum antibiotics and fluids Monitor on telemetry ID also followed Repeat cultures are negative Patient is much better Toxic metabolic encephalopathy resolved Patient is now stable to be discharged on by mouth antibiotics Medications reconciled Discussed with nursing staff/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 Will update patient's private PMD also. Condition: Improved - Instructions Diet, Activity, Other Instructions: Antibiotics for 7 days. Consider Neurology evaluation. Referrals: Corona Castorena MD [Primary Care Provider] - - Home Medications Comprehensive Discharge Medication List: Ambulatory Orders Aspirin [ASA -] 81 mg PO DAILY 04/10/13 Docusate Sodium [Colace -] 200 mg PO HS 04/10/13 Metformin HCl [Glucophage] 1,000 mg PO BID 04/10/13 Metoclopramide HCl 5 mg PO TID 04/10/13 Omeprazole [Prilosec (RX)] 20 mg PO DAILY 04/10/13 Tamsulosin HCl 0.4 mg PO DAILY 04/10/13 Citalopram Hydrobromide [Celexa -] 10 mg PO DAILY 09/25/13 Lisinopril [Prinivil -] 2.5 mg PO DAILY 09/25/13 Ascorbate Calcium [Vitamin C] 500 mg PO DAILY 11/04/17 Cholecalciferol (Vitamin D3) [Vitamin D3 -] 1,000 unit PO DAILY 11/04/17 Cyanocobalamin [Vitamin B12 -] 100 mcg PO DAILY 11/04/17 Docusate Sodium [Colace] 200 mg PO HS 11/04/17 Insulin Aspart [Novolog Flexpen] 0 unit SQ TID 11/04/17 Methyl Salicylate/Menthol [Bengay Greaseless Cream] 0 gm TP DAILY 11/04/17 Mirtazapine 7.5 mg PO HS 11/04/17 Multivitamin [One Daily] 1 each PO DAILY 11/04/17 Simvastatin [Zocor -] 40 mg PO HS 11/04/17 Timolol 0.5% [Timoptic 0.5%] 1 drop OD BID 11/04/17 Zinc Oxide 20% Topical Oint 1 applic TP BID 11/04/17 Acetaminophen [Tylenol .Regular Strength -] 650 mg PO Q6H PRN tablet 11/07/17 Amox-Tr/K Cl [Augmentin 875-125mg Tablet -] 1 tab PO BID@0800,1730 #28 tablet MDD 2 11/07/17 Amoxicillin/Potassium Clav [Augmentin 875-125 Tablet] 1 each PO BID #14 tablet 11/07/17 Docusate Sodium [Colace -] 200 mg PO HS capsule 11/07/17 Enoxaparin [Lovenox -] 40 mg SQ DAILY disp.syrin 11/07/17 Insulin (Levemir) [Levemir Vial] 10 units SQ HS ml 11/07/17
[2017-11-07] MEDS ORDERED: ENOXAPARIN NA (PORCINE) 40 MG/0.4 ML DISP.SYRIN SQ SCH (10:00)
--- NOTE | 2017-11-07 10:18 | CON.NEURO ---
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 Cardio/Vascular: Yes: HTN, Hyperlipdemia Gastrointestinal: Yes: GERD, Peptic Ulcer Disease Renal/: Yes: Renal Inusuff Endocrine: Yes: Diabetes Mellitus - Past Surgical History Past Surgical History: Yes: Joint Replacement (right hip bilateral knee) - Alcohol/Substance Use Hx Alcohol Use: No History of Substance Use: reports: None - Smoking History Smoking history: Unknown if ever smoked Have you smoked in the past 12 months: No Aproximately how many cigarettes per day: 0 - Social History Usual Living Arrangement: [facility] ADL: Support Services History of Recent Travel: No Home Medications - Allergies Allergies/Adverse Reactions: Allergies Allergy/AdvReac Type Severity Reaction Status Date / Time No Known Allergies Allergy Verified 09/25/13 19:48 - Home Medications Home Medications: Ambulatory Orders Aspirin [ASA -] 81 mg PO DAILY 04/10/13 Docusate Sodium [Colace -] 200 mg PO HS 04/10/13 Metformin HCl [Glucophage] 1,000 mg PO BID 04/10/13 Metoclopramide HCl 5 mg PO TID 04/10/13 Omeprazole [Prilosec (RX)] 20 mg PO DAILY 04/10/13 Tamsulosin HCl 0.4 mg PO DAILY 04/10/13 Citalopram Hydrobromide [Celexa -] 10 mg PO DAILY 09/25/13 Lisinopril [Prinivil -] 2.5 mg PO DAILY 09/25/13 Ascorbate Calcium [Vitamin C] 500 mg PO DAILY 11/04/17 Cholecalciferol (Vitamin D3) [Vitamin D3 -] 1,000 unit PO DAILY 11/04/17 Cyanocobalamin [Vitamin B12 -] 100 mcg PO DAILY 11/04/17 Docusate Sodium [Colace] 200 mg PO HS 11/04/17 Insulin Aspart [Novolog Flexpen] 0 unit SQ TID 11/04/17 Methyl Salicylate/Menthol [Bengay Greaseless Cream] 0 gm TP DAILY 11/04/17 Mirtazapine 7.5 mg PO HS 11/04/17 Multivitamin [One Daily] 1 each PO DAILY 11/04/17 Simvastatin [Zocor -] 40 mg PO HS 11/04/17 Timolol 0.5% [Timoptic 0.5%] 1 drop OD BID 11/04/17 Zinc Oxide 20% Topical Oint 1 applic TP BID 11/04/17 Acetaminophen [Tylenol .Regular Strength -] 650 mg PO Q6H PRN tablet 11/07/17 Amox-Tr/K Cl [Augmentin 875-125mg Tablet -] 1 tab PO BID@0800,1730 #28 tablet MDD 2 11/07/17 Amoxicillin/Potassium Clav [Augmentin 875-125 Tablet] 1 each PO BID #14 tablet 11/07/17 Docusate Sodium [Colace -] 200 mg PO HS capsule 11/07/17 Enoxaparin [Lovenox -] 40 mg SQ DAILY disp.syrin 11/07/17 Insulin (Levemir) [Levemir Vial] 10 units SQ HS ml 11/07/17 Physical Exam-Neuro Vital Signs: Vital Signs Temperature 97.5 F L 11/07/17 06:00 Pulse Rate 64 11/07/17 06:00 Respiratory Rate 18 11/07/17 06:00 Blood Pressure 138/71 11/07/17 06:00 O2 Sat by Pulse Oximetry (%) 96 11/06/17 21:00 Labs: CBC, BMP 11/05/17 06:38 11/05/17 06:38 INR, PTT INR 1.25 (0.82-1.09) H 11/03/17 20:40 Assessment/Plan cc tremors HPI 87 year old male lives in [facility] was admitted for UTi and was treated. He has past medical history of DM,HTN, HLD, Renal failure, GERD, Joing replacement.He is confused and he has history of dementia. Mild tremors were observed at the hospital. As per nursing staff, he has been confused. There is no evidence of seizure like activity. He is moving all extremity. PMH as above SH,FH,ROS as above NKDA HOME Medications Aspirin [ASA -] 81 mg PO DAILY 04/10/13 Docusate Sodium [Colace -] 200 mg PO HS 04/10/13 Metformin HCl [Glucophage] 1,000 mg PO BID 04/10/13 Metoclopramide HCl 5 mg PO TID 04/10/13 Omeprazole [Prilosec (RX)] 20 mg PO DAILY 04/10/13 Tamsulosin HCl 0.4 mg PO DAILY 04/10/13 Citalopram Hydrobromide [Celexa -] 10 mg PO DAILY 09/25/13 Lisinopril [Prinivil -] 2.5 mg PO DAILY 09/25/13 Acetaminophen [Tylenol -] 1,000 mg PO BID 11/04/17 Ascorbate Calcium [Vitamin C] 500 mg PO DAILY 11/04/17 Cholecalciferol (Vitamin D3) [Vitamin D3 -] 1,000 unit PO DAILY 11/04/17 Cyanocobalamin [Vitamin B12 -] 100 mcg PO DAILY 11/04/17 Insulin Aspart [Novolog] 0 unit SQ TID 11/04/17 Mirtazapine 7.5 mg PO HS 11/04/17 Multivitamin [One Daily] 1 each PO DAILY 11/04/17 Simvastatin [Zocor -] 40 mg PO HS 11/04/17 Timolol 0.5% [Timoptic 0.5%] 1 drop OD BID 11/04/17 Zinc Oxide 20% Topical Oint 1 applic TP BID 11/04/17 Neurological Examination Alert follow command, able to tell his name, do not know where he is and what date it is , He is drinking coffee in bed and seems to be comfortable, no acute distress eomi, pupils is reactive and nof cordelia asymmetry moving all extremity there is generalized mild rigidity identified and very minimal right sided tremors were seen Assessment-- 87 Year old male history of dementia, not on any medication , no work up is available to review. 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
[2017-11-07] MEDS ORDERED: DONEPEZIL HCL 5 MG TABLET (FP) PO SCH (10:30)
[2017-11-07] MEDS: LISINOPRIL 5 MG TABLET (FP) PO SCH (10:50)
[2017-11-07] MEDS: TAMSULOSIN HCL 0.4 MG CAP.ER.24H (FP) PO SCH (10:50)
[2017-11-07] MEDS: CYANOCOBALAMIN (VITAMIN B-12) 100 MCG TABLET PO SCH (10:50)
[2017-11-07] MEDS: AMOX TR/POT CLAV 875MG/125MG TABLETS (FP) PO SCH (10:50)
[2017-11-07] MEDS: CITALOPRAM HYDROBROMIDE 10 MG TABLET (FP) PO SCH (10:50)
[2017-11-07] MEDS: ASPIRIN 81 MG CHEWABLE TABLETS PO SCH (10:51)
[2017-11-07] MEDS: TIMOLOL 0.5% OPHTHALMIC SOL 5 ML BOTTLE OD SCH (10:51)
[2017-11-07] MEDS: PANTOPRAZOLE 20 MG TABLET (FP) PO SCH (10:51)
[2017-11-07] MEDS: CHOLECALCIFEROL (VITAMIN D3) 1,000 UNIT TABLET (FP) PO SCH (10:51)
[2017-11-07] MEDS: ZINC OXIDE 20% TOPICAL OINTMENT 30 GM TUBE TP SCH (10:51)
[2017-11-07] MEDS: MULTIVITAMINS (DAILY MVI) TABLET (FP) PO SCH (10:52)
--- NOTE | 2017-11-07 11:35 | PN ---
Progress Note, Physician History of Present Illness: No complaints. Afebrile, sensorium improved. - Current Medication List Current Medications: Active Medications Acetaminophen (Tylenol -) 650 mg PO Q6H PRN PRN Reason: PAIN OR FEVER Last Admin: 11/04/17 21:28 Dose: 650 mg Amoxicillin/Clavulanate Potassium (Augmentin - 875mg Tablet) 1 tab PO BID@0800, 1730 [facility] Last Admin: 11/07/17 10:50 Dose: 1 tab Aspirin (Asa -) 81 mg PO DAILY [facility] Last Admin: 11/07/17 10:51 Dose: 81 mg Atorvastatin Calcium (Lipitor -) 20 mg PO HS [facility] Last Admin: 11/06/17 21:51 Dose: 20 mg Cholecalciferol (Vitamin D3 -) 1,000 unit PO DAILY [facility] Last Admin: 11/07/17 10:51 Dose: 1,000 unit Citalopram Hydrobromide (Celexa -) 10 mg PO DAILY [facility] Last Admin: 11/07/17 10:50 Dose: 10 mg Cyanocobalamin (Vitamin B12 -) 100 mcg PO DAILY [facility] Last Admin: 11/07/17 10:50 Dose: 100 mcg Docusate Sodium (Colace -) 200 mg PO HS [facility] Last Admin: 11/06/17 21:51 Dose: 200 mg Donepezil HCl (Aricept -) 5 mg PO BID [facility] Last Admin: 11/07/17 10:50 Dose: 5 mg Enoxaparin Sodium (Lovenox -) 40 mg SQ DAILY [facility] Last Admin: 11/07/17 10:49 Dose: 40 mg Insulin Aspart (Novolog Vial Sliding Scale -) 1 vial SQ TIDAC [facility] PRN Reason: Protocol Last Admin: 11/07/17 06:09 Dose: Not Given Insulin Detemir (Levemir Vial) 14 units SQ HS [facility] Last Admin: 11/06/17 21:52 Dose: 14 units Lisinopril (Prinivil) 2.5 mg PO DAILY [facility] Last Admin: 11/07/17 10:50 Dose: 2.5 mg Mirtazapine (Remeron -) 7.5 mg PO HS [facility] Last Admin: 11/06/17 21:51 Dose: 7.5 mg Multi-Ingredient Ointment (Zinc Oxide) 1 applic TP BID [facility] Last Admin: 11/07/17 10:51 Dose: 1 applic Multivitamins/Minerals/Vitamin C (Tab-A-Vit -) 1 tab PO DAILY [facility] Last Admin: 11/07/17 10:52 Dose: 1 tab Pantoprazole Sodium (Protonix -) 20 mg PO DAILY [facility] Last Admin: 11/07/17 10:51 Dose: 20 mg Tamsulosin HCl (Flomax -) 0.4 mg PO DAILY@0830 [facility] Last Admin: 11/07/17 10:50 Dose: 0.4 mg Timolol Maleate (Timoptic 0.5%) 1 drop OD BID [facility] Last Admin: 11/07/17 10:51 Dose: 1 drop - Objective Vital Signs: Vital Signs Temperature 97.5 F L 11/07/17 06:00 Pulse Rate 64 11/07/17 06:00 Respiratory Rate 18 11/07/17 09:00 Blood Pressure 138/71 11/07/17 06:00 O2 Sat by Pulse Oximetry (%) 96 11/07/17 09:00 Constitutional: Yes: No Distress, Calm, Thin Neck: Yes: Supple Cardiovascular: Yes: Regular Rate and Rhythm Respiratory: Yes: Regular, Diminished Gastrointestinal: Yes: Normal Bowel Sounds, Soft Edema: No Labs: CBC, BMP 11/05/17 06:38 11/05/17 06:38 INR, PTT INR 1.25 (0.82-1.09) H 11/03/17 20:40 - ....Imaging EKG: Report Reviewed (Tele: SR) Problem List - Problems (1) Demand ischemia Code(s): I24.8 - OTHER FORMS OF ACUTE ISCHEMIC HEART DISEASE (2) Dementia Code(s): F03.90 - UNSPECIFIED DEMENTIA WITHOUT BEHAVIORAL DISTURBANCE Qualifiers: Dementia type: unspecified type (3) Elevated troponin I level Code(s): R74.8 - ABNORMAL LEVELS OF OTHER SERUM ENZYMES (4) HLD (hyperlipidemia) Code(s): E78.5 - HYPERLIPIDEMIA, UNSPECIFIED Qualifiers: Hyperlipidemia type: pure hypercholesterolemia Qualified Code(s): E78.00 - Pure hypercholesterolemia, unspecified; E78.0 - Pure hypercholesterolemia (5) HTN (hypertension) Code(s): I10 - ESSENTIAL (PRIMARY) HYPERTENSION Qualifiers: Hypertension type: essential hypertension Qualified Code(s): I10 - Essential (primary) hypertension (6) UTI (urinary tract infection) Code(s): N39.0 - URINARY TRACT INFECTION, SITE NOT SPECIFIED Qualifiers: Urinary tract infection type: site unspecified (7) Anemia Code(s): D64.9 - ANEMIA, UNSPECIFIED Qualifiers: Anemia type: other cause Assessment/Plan 11/04/2017 Echo: Normal biventricular size and fxn, mild MR, TR, , MG 5.3 mmHg 1. Urinary tract infection/urosepsis resolving 2. Elevated troponin compatible with demand ischemia 3. Hypertension 4. Hypercholesterolemia 5. Diabetes mellitus 6. Dementia - altered mental status due to above sepsis - improved 7. History of renal insufficiency - currently normal creatinine 8. Hypokalemia resolved 9. Anemia 10. Parkisonism PLAN: 1. Complete empiric antibiotic coverage as per ID service with [facility]GT[facility] 2. Troponins have peaked 3. Monitor electrolytes and renal function 4. Continue ASA 81 qd, Lipitor 20 qhs, Lisinopril 2.5 qd 5. GI prophylaxis, DVT prophylaxis, d/c planning
[2017-11-07 11:36] VITALS: BP 125/62; PULSE 59; TEMP 98.9
--- NOTE | 2017-11-10 13:08 | EKG ---
Test Reason : Blood Pressure : / mmHG Vent. Rate : 060 BPM Atrial Rate : 060 BPM P-R Int : 000 ms QRS Dur : 088 ms QT Int : 440 ms P-R-T Axes : 000 -08 041 degrees QTc Int : 440 ms PROBABLE SINUS RHYTHM ABNORMAL ECG WHEN COMPARED WITH ECG OF 03-NOV-2017 21:27, BASELINE ARTIFACT VENT. RATE HAS DECREASED BY 31 BPM Confirmed by LEDY DEAN MD ([id number]) on 11/10/2017 1:08:16 PM Referred By: Confirmed By:LEDY DEAN MD
== END 2017-11-07 14:56 | DRG 871 ==
LOC: JER 18:17 → JERBED 23:09 → UNDOADMIN 23:44 → JERBED 23:44 → J4W 11-04 15:00
PROVIDERS: ADMIT Internal Medicine; ATTEND Internal Medicine
DX: A41.9 Sepsis, unspecified organism (principal); G92 Toxic encephalopathy; N39.0 Urinary tract infection, site not specified; I24.8 Other forms of acute ischemic heart disease; F03.90 Unspecified dementia, unspecified severity, without behavioral disturbance, psychotic disturbance, mood disturbance, and anxiety; E78.5 Hyperlipidemia, unspecified; K21.9 Gastro-esophageal reflux disease without esophagitis; I12.9 Hypertensive chronic kidney disease with stage 1 through stage 4 chronic kidney disease, or unspecified chronic kidney disease; E11.22 Type 2 diabetes mellitus with diabetic chronic kidney disease; N18.2 Chronic kidney disease, stage 2 (mild); E87.6 Hypokalemia; D64.9 Anemia, unspecified; G20 Parkinson's disease
CPT/HCPCS: 36415; 71045-TC; 80048; 80053; 81003; 81015; 82272; 82550; 82553; 82803; 82962; 83605; 83735; 84484; 85025; 85610; 85730; 87040; 87086; 87804; 93005; 93010; 93306-TC; 97161-GP; 99285-25

== ENCOUNTER 2019-02-05 12:20 | Inpatient (IN) | payer OTHER ==
--- NOTE | 2019-02-05 13:05 | PDOC ---
History of Present Illness - General Stated Complaint: Respiratory Time Seen by Provider: 02/05/19 12:36 History Source: Patient Exam Limitations: No Limitations - History of Present Illness Initial Comments: 02/05/19 12:59 88 yo male PMH of dementia, chronic ischemic heart disease, IDDM, CKD, Parkison' s, GERD, PVD who was BIBEMS from [facility] after being found this am with low O2 saturation, vomiting and loose stools. Spoke with Mr. Mohan's nurse at [facility], states pt had 3 episodes of NB/NB vomiting yesterday with 1 loose BM and this am pt had 1 more episode of NB/NB vomiting afterwards noted to have O2 saturation of 83 on RA (does not require O2 at baseline). PCP Dr. Iverson contacted, pt given placed on 5L NC with O2 sats in the high 90s and 500mg levoquin for likely aspiration pneumonia. Of note, no recent changes in ADLs or mentation as per nurse, pt is non ambulatory at baseline and is AOX1. O2 on RA in the ED dropped to 89 2L currently, 97% Pt not coughing, bilateral rales Past History - Past Medical History Allergies/Adverse Reactions: Allergies Allergy/AdvReac Type Severity Reaction Status Date / Time No Known Allergies Allergy Verified 09/25/13 19:48 Home Medications: Ambulatory Orders Aspirin [ASA -] 81 mg PO DAILY 04/10/13 Docusate Sodium [Colace -] 200 mg PO HS 04/10/13 Metoclopramide HCl 5 mg PO TID 04/10/13 Omeprazole [Prilosec (RX)] 20 mg PO DAILY 04/10/13 Tamsulosin HCl 0.4 mg PO DAILY 04/10/13 metFORMIN HCL [Glucophage] 1,000 mg PO BID 04/10/13 Citalopram Hydrobromide [Celexa -] 10 mg PO DAILY 09/25/13 Lisinopril [Prinivil -] 2.5 mg PO DAILY 09/25/13 Ascorbate Calcium [Vitamin C] 500 mg PO DAILY 11/04/17 Cholecalciferol (Vitamin D3) [Vitamin D3 -] 1,000 unit PO DAILY 11/04/17 Cyanocobalamin [Vitamin B12 -] 100 mcg PO DAILY 11/04/17 Docusate Sodium [Colace] 200 mg PO HS 11/04/17 Insulin Aspart [Novolog Flexpen] 0 unit SQ TID 11/04/17 Methyl Salicylate/Menthol [Bengay Greaseless Cream] 0 gm TP DAILY 11/04/17 Mirtazapine 7.5 mg PO HS 11/04/17 Multivitamin [One Daily] 1 each PO DAILY 11/04/17 Simvastatin [Zocor -] 40 mg PO HS 11/04/17 Timolol 0.5% [Timoptic 0.5%] 1 drop OD BID 11/04/17 Zinc Oxide 20% Topical Oint 1 applic TP BID 11/04/17 Acetaminophen [Tylenol .Regular Strength -] 650 mg PO Q6H PRN tablet 11/07/17 Amox-Tr/K Cl [Augmentin 875-125mg Tablet -] 1 tab PO BID@0800,1730 #28 tablet MDD 2 11/07/17 Amoxicillin/Potassium Clav [Augmentin 875-125 Tablet] 1 each PO BID #14 tablet 11/07/17 Docusate Sodium [Colace -] 200 mg PO HS capsule 11/07/17 Enoxaparin [Lovenox -] 40 mg SQ DAILY disp.syrin 11/07/17 Insulin (Levemir) [Levemir Vial] 10 units SQ HS ml 11/07/17 Anemia: No Asthma: No Cancer: No Cardiac Disorders: Yes CVA: No COPD: No CHF: No Dementia: Yes Diabetes: Yes GI Disorders: No Disorders: No HTN: Yes Hypercholesterolemia: Yes Kidney Stones: (chronic kidney disease) Liver Disease: No Seizures: No Thyroid Disease: No - Surgical History Orthopedic Surgery: Yes (ORIF RIGHT HIP 2011,LA KNEE REPLACEMENT) - Immunization History Immunization Up to Date: Yes - Suicide/Smoking/Psychosocial Hx Smoking Status: No Smoking History: Unknown if ever smoked Have you smoked in the past 12 months: No Number of Cigarettes Smoked Daily: 0 Hx Alcohol Use: No Drug/Substance Use Hx: No Substance Use Type: None Hx Substance Use Treatment: No Review of Systems - Review of Systems Able to Perform ROS?: No (dementia ) *Physical Exam - Physical Exam General Appearance: Yes: Nourished, Appropriately Dressed. No: Apparent Distress HEENT: positive: EOMI, GHADA ED Treatment Course - LABORATORY CBC & Chemistry Diagram: 02/05/19 13:33 02/05/19 13:33 Medical Decision Making - Medical Decision Making Pt from [facility] presents to ED with hypoxia in the low 80s after episode of vomiting. Given levoquin and on 2L NC currently 96-98% O2 saturation. Sent for likely aspiration pneumonia Vitals stable, not tachy, tych, normal temp DDX INLT: Asp pneumonia, hospital acquired PNA, PE, sepsis Baseline AOX1 and non ambulatory 02/05/19 15:56 Spoke with pts daughter and health care proxy Ms. Alissa Capone who agrees to the Chest CTA and ab/pel CT with contrast. She is aware of the risks and benefits with regards to the proposed diagnostic tests. Pt given 1L hydration and will continue to be hydrated Confirmed with Daughter that pt is at baseline mentation and no new deficits noted in regards to ADLs on presentation Pt will be admitted to [facility] service *DC/Admit/Observation/Transfer Diagnosis at time of Disposition: Leukocytosis UTI (urinary tract infection) Qualifiers: Urinary tract infection type: site unspecified Hematuria presence: with hematuria Qualified Code(s): N39.0 - Urinary tract infection, site not specified ; R31.9 - Hematuria, unspecified - Discharge Dispostion Condition at time of disposition: Stable Decision to Admit order: Yes - Referrals Referrals: Corona Castorena MD [Primary Care Provider] - - Patient Instructions - Post Discharge Activity
--- NOTE | 2019-02-05 13:46 | PDOC ---
Documentation entered by Giacomo Gibbons SCRIBE, acting as scribe for Deborah Stratton MD. Deborah Stratton MD: This documentation has been prepared by the lesteribe, Giacomo Gibbons SCRIBE, under my direction and personally reviewed by me in its entirety. I confirm that the documentation accurately reflects all work, treatment, procedures, and medical decision making performed by me. Attending Attestation - Resident Resident Name: JessicameyTc - ED Attending Attestation I have performed the following: I have examined & evaluated the patient, The case was reviewed & discussed with the resident, I agree w/resident's findings & plan - HPI HPI: 02/05/19 13:50 The patient is a 88 year old male with a significant past medical history of diabetes, CKD stage ll, anemia, hypertension, hypercholesterolemia, GERD, HTN, HLD, PVD, dementia, MDD and newly diagnosed Parkinsons disease who presents to the emergency department via EMS from [facility] with noted hypoxia.. The patient was noted to experience 3 episodes of non bloody non bilious emesis and an episode of loose bowels yesterday. Today he was noted to look ill by which his oxygen was found to be 82% on room air after an episode of vomiting. As per the retirement, the patient was given levaquin and liquid yesterday and put on 5L O2 via nasal cannula as per PCP orders by which his saturation went up to 97%. History provided by [place] facility and RNs and notes; limited by patient due to Parkinsons and dementia. - Physicial Exam PE: 02/05/19 14:48 NAD, alert, disoriented, +tremulous and pinrolling tremors. Follows commands, otherwise minimally verbal. PERRL, EOMI, nl conjunctiva, anicteric; neck supple. Lungs with bilateral basilar crackles, RRR, +holosystolic murmur, abdomen soft diffuse TTP, no rebound. +voluntary guarding. MARK x4, no focal neuro deficits. No peripheral edema. normal color for ethnicity, WWP. - Medical Decision Making 02/05/19 13:42 I, Deborah Stratton MD, attest that this document has been prepared under my direction and personally reviewed by me in its entirety. I further attest, that it accurately reflects all work, treatment, procedures and medical decision -making performed by me. See HPI for details Vital signs reviewed, LGF 99 rectally; normotensive, Hypoxia off O2 down to high 80s, so placed back on supp O2 via NC. DDx SOB: ACS, PE, PTX, CHF, pneumonia, pulmonary edema, pleurisy, pneumonia, viral syndrome. effusion. anemia, electrolyte/metabolic derangements. intra abdominal infection vs inflammation. Prior notes reviewed, including admissions, discharges and consultations. laboratory results and imaging reviewed, basic labs and lytes wnl, notable for + leukocytosis of 15K, c/w possible infection. UA_positive for nitrites, WBCs and leuk esterase, treat as UTI and covered with abx already, narrow per culture. CXR_no acute chest pathology Cardiac panel_neg trop, bnp unremarkable, indeterminate range. does not appear fluid overloaded and pocus unremarkable. EKG normal sinus rhythm at 73 bpm, no interval abnormalities, narrow QRS, ST and T wave segments and morphology normal. Nonspecific T wave abnormalities ED course - limited bedside pocus echo and thoracic exam - dry lungs, A line profile, no effusion, normal EF on visual estimation but limited due to habitus, RV<LV. - CT imaging chest and a/p to eval for intra thoracic and abdominal pathology, presuming infection not seen on CXR due to poor sensititivies CTA chest to eval for acute PE as etiology for hypoxia, as there are no systemic sx, no fever - lives in NH, immobilized relatively, moderate risk for PE. CT angio neg for PE< patchy opacities at bases, atelectasis vs infiltrate- treating CT a/p no acute pathology, bladder wall thickening karely with UTI - empiric Vanc/zosyn given aspiration and health care association - cover for GN , GP, MRSA and anaerobes - sepsis workup, blood and sputum cultures. lactic normal Admit for UTI, leukocytosis, infection workup, presumed asp vs health care pneumonia. Admit to Ricky/Ramírez xavier, hospitalist overnight 02/05/19 17:02 02/05/19 17:03 02/05/19 19:09 Heart Score/ECG Review #1 ECG reviewed & interpreted by me at: 12:45 General ECG Interpretation: Sinus Rhythm, Normal Rate, Normal Intervals Compared to previous ECG there are: No significant change 02/05/19 13:44 EKG normal sinus rhythm at 73 bpm, no interval abnormalities, narrow QRS, ST and T wave segments and morphology normal. Nonspecific T wave abnormalities Procedures - Bedside Ultrasound Bedside Ultrasound: Cardiac Remarks: 02/05/19 14:44 POCUS echo and thoracic exam performed and documented/saved, indication includes chest pain/dyspnea. views obtained (PSLA, PSS, A4, SX, bilateral lung marcos). Findings include normal EF on visual estimation limited due to poor cardiac windows, no pericardial or pleural effusion, primarily A lines. Normal aortic root <4cm. RV<LV. Impression: no acute findings - however, limitations with body habitus and positioning and poor cardiac windows.
[2019-02-05 14:19] LABS: BASO % 0.2 % (0-2.0); HEMATOCRIT 31.3 % (35.4-49); HEMOGLOBIN 10.4 GM/dL (11.7-16.9); LYMPH % 3.7 % (8-40); MCH 32.6 pg (25.7-33.7); MCHC 33.1 g/dl (32.0-35.9); MEAN CELL VOLUME 98.5 fl (80-96); MONO % 8.6 % (3.8-10.2); NEUT % 87.5 % (42.8-82.8); PLATELET COUNT 274 K/MM3 (134-434); RBC 3.18 M/mm3 (4.00-5.60); RDW 13.5 % (11.9-15.9); WHITE BLOOD COUNT 15.1 K/mm3 (4.0-10.0)
[2019-02-05 14:42] LABS: INR 1.15 (0.83-1.09); PROTHROMBIN TIME (PATIENT) 13.6 SEC (9.7-13.0)
[2019-02-05] MEDS ORDERED: PIPERACILLIN/TAZOB 4.5 GM 4.5 GM in DEXTROSE 5%-WATER 100 ML IVPB ONE (14:42)
[2019-02-05] MEDS ORDERED: VANCOMYCIN 1,500 MG in DEXTROSE 5%-WATER - 250 ML IVPB ONE (14:42)
[2019-02-05] MEDS ORDERED: SODIUM CHLORIDE 0.9% 500 ML INFUS.BAG IV ONE (14:43)
[2019-02-05] MEDS ORDERED: VANCOMYCIN 1,500 MG in DEXTROSE 5%-WATER - 500 ML IVPB ONE (15:00)
[2019-02-05 15:01] LABS: ALBUMIN 3.2 g/dl (3.4-5.0); ALK PHOS 61 U/L (45-117); ANION GAP 7 MMOL/L (8-16); BILIRUBIN,TOTAL 0.4 mg/dL (0.2-1); BLOOD UREA NITROGEN 34 mg/dL (7-18); CALCIUM 8.6 mg/dL (8.5-10.1); CHLORIDE 106 mmol/L (98-107); CO2 28 mmol/L (21-32); CREATININE 1.3 mg/dL (0.55-1.3); GLUCOSE,RANDOM 182 mg/dL (74-106); MAGNESIUM 2.1 mg/dL (1.8-2.4); N-TERMINAL BNP 645.1 pg/ml (5-450); POTASSIUM 4.3 mmol/L (3.5-5.1); SGOT/AST 19 U/L (15-37); SGPT/ALT 16 U/L (13-61); SODIUM 141 mmol/L (136-145); TOT PROT 6.7 g/dl (6.4-8.2)
[2019-02-05] MEDS ORDERED: PIPERACILLIN/TAZOB 4.5 GM 4.5 GM/100 ML BAG IVPB ONE (15:30)
[2019-02-05 16:07] LABS: EPI CELLS 0.6 /HPF (0-5/HPF); URINE APPEARANCE CLOUDY; URINE BACTERIA 11.2 /hpf (NEGATIVE); URINE BILIRUBIN NEGATIVE (NEGATIVE); URINE CASTS 4 /lpf (0-8); URINE COLOR DK YELLOW; URINE GLUCOSE (UA) NEGATIVE (NEGATIVE); URINE KETONE NEGATIVE (NEGATIVE); URINE LEUK ESTERASE 3+ (NEGATIVE); URINE NITRITE POSITIVE (NEGATIVE); URINE PROTEIN 2+ (NEGATIVE); URINE RBC 11 /hpf (0-4); URINE WBC 299 /hpf (0-5)
--- NOTE | 2019-02-05 21:04 | HP ---
Admitting History and Physical - Primary Care Physician PCP: Caitlin García - Admission Chief Complaint: Hypoxia History of Present Illness: This is a 88 y/o man from [facility] with a PMHx of Dementia, HTN, HLD, Diabetes Mellitus, GERD, Renal Insufficiency, PUD. Who presents to the ED for Hypoxia 83% at the care home. Patient was found to be Hypoxic 92% on room air in the ED. Patient has Dementia unable to provide HPI. Patient's daughters were at bedside, reports that the patient gets frequent UTIs. 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 Cardiovascular: Yes: HTN, Hyperlipdemia Gastrointestinal: Yes: GERD, Peptic Ulcer Disease Renal/: Yes: Renal Inusuff Endocrine: Yes: Diabetes Mellitus - Past Surgical History Past Surgical History: Yes: Joint Replacement (right hip bilateral knee) - Advance Directives Advance Directives: Yes: DNR - Smoking History Smoking history: Never smoked Have you smoked in the past 12 months: No Aproximately how many cigarettes per day: 0 - Alcohol/Substance Use Hx Alcohol Use: Yes (Former (per daughters)) History of Substance Use: reports: None - Social History Usual Living Arrangement: Yes: Jail ADL: Support Services History of Recent Travel: No Home Medications - Allergies Allergies/Adverse Reactions: Allergies Allergy/AdvReac Type Severity Reaction Status Date / Time No Known Allergies Allergy Verified 09/25/13 19:48 - Home Medications Home Medications: Ambulatory Orders Aspirin [ASA -] 81 mg PO DAILY 04/10/13 Metoclopramide HCl 5 mg PO TID 04/10/13 Omeprazole [Prilosec (RX)] 40 mg PO DAILY 04/10/13 Tamsulosin HCl 0.4 mg PO DAILY 04/10/13 metFORMIN HCL [Glucophage] 1,000 mg PO BID 04/10/13 Citalopram Hydrobromide [Celexa -] 10 mg PO DAILY 09/25/13 Lisinopril [Prinivil -] 2.5 mg PO DAILY 09/25/13 Ascorbate Calcium [Vitamin C] 500 mg PO DAILY 11/04/17 Cholecalciferol (Vitamin D3) [Vitamin D3 -] 1,000 unit PO DAILY 11/04/17 Cyanocobalamin [Vitamin B12 -] 100 mcg PO DAILY 11/04/17 Docusate Sodium [Colace] 200 mg PO HS 11/04/17 Insulin Aspart [Novolog Flexpen] 0 unit SQ TID 11/04/17 Methyl Salicylate/Menthol [Bengay Greaseless Cream] 0 gm TP DAILY 11/04/17 Mirtazapine 7.5 mg PO HS 11/04/17 Multivitamin [One Daily] 1 each PO DAILY 11/04/17 Simvastatin [Zocor -] 40 mg PO HS 11/04/17 Timolol 0.5% [Timoptic 0.5%] 1 drop OD BID 11/04/17 Zinc Oxide 20% Topical Oint 1 applic TP BID 11/04/17 Acetaminophen [Tylenol .Regular Strength -] 650 mg PO Q6H PRN tablet 11/07/17 Carbidopa/Levodopa 25/100 [Sinemet 25/100 -] 1 tab PO TID 02/05/19 Citalopram Hydrobromide [Celexa -] 10 mg PO DAILY 02/05/19 Insulin Glargine,Hum.rec.anlog [Lantus] 12 units SQ DAILY 02/05/19 Metformin HCl [Glucophage] 1 tab PO BID 02/05/19 Phenazopyridine HCl 100 mg PO BID 02/05/19 Family Disease History - Family Disease History Family History: Unremarkable Review of Systems Unable to obtain ROS, reason: Dementia Physical Examination Vital Signs: Vital Signs Temperature 99.5 F 02/05/19 12:20 Pulse Rate 85 02/05/19 12:20 Respiratory Rate 16 02/05/19 12:20 Blood Pressure 115/62 02/05/19 12:20 O2 Sat by Pulse Oximetry (%) 92 L 02/05/19 12:20 Constitutional: Yes: No Distress, Anxious Eyes: Yes: Conjunctiva Clear, PERRL HENT: Yes: WNL, Atraumatic, Normocephalic Neck: Yes: WNL, Supple, Trachea Midline Cardiovascular: Yes: WNL, Regular Rate and Rhythm, S1, S2 Respiratory: Yes: Diminished, On Nasal O2, Rhonchi, Wheezes Gastrointestinal: Yes: Normal Bowel Sounds, Soft Renal/: Yes: Incontinence Breast(s): Yes: WNL Musculoskeletal: Yes: WNL Extremities: Yes: WNL Edema: No Peripheral Pulses WNL: Yes Neurological: Yes: Alert, Confusion, Cran Nerves II-XII Intact ...Motor Strength: WNL Psychiatric: Yes: Alert Labs: CBC, BMP 02/05/19 13:33 02/05/19 13:33 Laboratory Results - last 24 hr 02/05/19 02/05/19 02/05/19 13:33 13:33 13:33 WBC 15.1 H RBC 3.18 L Hgb 10.4 L Hct 31.3 L MCV 98.5 H MCH 32.6 MCHC 33.1 RDW 13.5 Plt Count 274 MPV 8.0 Absolute Neuts (auto) 13.2 H Neutrophils % 87.5 H Lymphocytes % 3.7 L D Monocytes % 8.6 Eosinophils % 0.0 D Basophils % 0.2 Nucleated RBC % 0 PT with INR 13.60 H INR 1.15 H Sodium 141 Potassium 4.3 Chloride 106 Carbon Dioxide 28 Anion Gap 7 L BUN 34 H Creatinine 1.3 Creat Clearance w eGFR 52.34 Random Glucose 182 H Lactic Acid Calcium 8.6 Magnesium 2.1 Total Bilirubin 0.4 AST 19 ALT 16 Alkaline Phosphatase 61 Troponin I < 0.02 B-Natriuretic Peptide 645.1 H Total Protein 6.7 Albumin 3.2 L Urine Color Urine Appearance Urine pH Ur Specific [place] Urine Protein Urine Glucose (UA) Urine Ketones Urine Blood Urine Nitrite Urine Bilirubin Urine Urobilinogen Ur Leukocyte Esterase Urine WBC (Auto) Urine RBC (Auto) Urine Casts (Auto) U Epithel Cells (Auto) Urine Bacteria (Auto) 02/05/19 02/05/19 15:45 18:45 WBC RBC Hgb Hct MCV MCH MCHC RDW Plt Count MPV Absolute Neuts (auto) Neutrophils % Lymphocytes % Monocytes % Eosinophils % Basophils % Nucleated RBC % PT with INR INR Sodium Potassium Chloride Carbon Dioxide Anion Gap BUN Creatinine Creat Clearance w eGFR Random Glucose Lactic Acid 1.8 Calcium Magnesium Total Bilirubin AST ALT Alkaline Phosphatase Troponin I B-Natriuretic Peptide Total Protein Albumin Urine Color Dk yellow Urine Appearance Cloudy Urine pH 8.0 D Ur Specific [place] 1.014 Urine Protein 2+ H Urine Glucose (UA) Negative Urine Ketones Negative Urine Blood 1+ H Urine Nitrite Positive H Urine Bilirubin Negative Urine Urobilinogen 1.0 Ur Leukocyte Esterase 3+ H Urine WBC (Auto) 299 Urine RBC (Auto) 11 Urine Casts (Auto) 4 U Epithel Cells (Auto) 0.6 Urine Bacteria (Auto) 11.2 Intake & Output 02/02/19 02/03/19 02/04/19 02/05/19 23:59 23:59 23:59 23:59 Weight 71.214 kg Imaging - Results Chest X-ray: Report Reviewed, Image Reviewed Cat Scan: Report Reviewed, Image Reviewed EKG: Image Reviewed Problem List - Problems (1) Acute respiratory failure with hypoxia Assessment/Plan: Likely secondary to Pneumonia O2 Duonebs Chest Xray reviewed Appreciate Pulm Consult Monitor Spo2 Aspiration Precautions Code(s): J96.01 - ACUTE RESPIRATORY FAILURE WITH HYPOXIA (2) Pneumonia Assessment/Plan: Likely Aspirate vs HAP [id number] Score 3 Blood Cultures-pending Urine Culture-pending WBC 15.1 with L- shift Lactic Acid- nl Patient was Hypoxic at NH 83%~ 92% RA in ED Continue O2 now 95-98% Chest Xray- neg acute chest pathology CTA- neg PE, R posterior basilar suboptimal opacity atelectasis vs infiltrate Vancomycin, zosyn given in ED will continue until cultures resulted Appreciate ID Consult Appreciate Pulm Consult Monitor CBC, BMP Monitor vitals Aspiration Precautions Code(s): J18.9 - PNEUMONIA, UNSPECIFIED ORGANISM (3) Leukocytosis Assessment/Plan: See Above Code(s): D72.829 - ELEVATED WHITE BLOOD CELL COUNT, UNSPECIFIED (4) UTI (urinary tract infection) Assessment/Plan: UA showed +nitrate, +3 leukocyte esterase, +2 protein, 299 WBCs Urine Culture-pending Continue Zosyn Appreciate ID input Monitor CBC, BMP Monitor vitals Code(s): N39.0 - URINARY TRACT INFECTION, SITE NOT SPECIFIED Qualifiers: Urinary tract infection type: site unspecified Hematuria presence: with hematuria Qualified Code(s): N39.0 - Urinary tract infection, site not specified; R31.9 - Hematuria, unspecified (5) CKD (chronic kidney disease), stage II Assessment/Plan: Cr 1.3 Avoid nephrotoxic drugs Monitor BMP Consider Nephrology consult if condition worsens Code(s): N18.2 - CHRONIC KIDNEY DISEASE, STAGE 2 (MILD) (6) Dementia Assessment/Plan: Continue home meds Fall Precautions Aspiration Precautions Code(s): F03.90 - UNSPECIFIED DEMENTIA WITHOUT BEHAVIORAL DISTURBANCE Qualifiers: Dementia type: unspecified type (7) GERD (gastroesophageal reflux disease) Assessment/Plan: Continue PPI Code(s): K21.9 - GASTRO-ESOPHAGEAL REFLUX DISEASE WITHOUT ESOPHAGITIS (8) HLD (hyperlipidemia) Assessment/Plan: Continue home med Monitor LFTs Code(s): E78.5 - HYPERLIPIDEMIA, UNSPECIFIED Qualifiers: Hyperlipidemia type: pure hypercholesterolemia Qualified Code(s): E78.00 - Pure hypercholesterolemia, unspecified; E78.0 - Pure hypercholesterolemia (9) HTN (hypertension) Code(s): I10 - ESSENTIAL (PRIMARY) HYPERTENSION Qualifiers: Hypertension type: essential hypertension Qualified Code(s): I10 - Essential (primary) hypertension (10) MDD (major depressive disorder) Assessment/Plan: Continue home meds Code(s): F32.9 - MAJOR DEPRESSIVE DISORDER, SINGLE EPISODE, UNSPECIFIED (11) PUD (peptic ulcer disease) Assessment/Plan: PPI Code(s): K27.9 - PEPTIC ULC, SITE UNSP, UNSP AC OR CHR, W/O HEMOR OR PERF (12) Parkinsonism Assessment/Plan: Continue Carbidopa-Levodopa Fall Precautions Code(s): G20 - PARKINSON'S DISEASE Assessment/Plan This is a 88 y/o man with a PMHx of Dementia, HTN, HLD, DM, GERD, Parkinson's, Chronic UTIs. Admitted for Acute Respiratory Distress with Hypoxia, Pneumonia, UTI for further evaluation of their emergent condition. Plan: See Problem List FEN Replete lytes prn Diabetic, Low Na Chopped Diet DVT ppx OOB SCDs Heparin SQ Code Status: DNR Dispo: Requires Inpatient Care Visit type - Emergency Visit Emergency Visit: Yes ED Registration Date: 02/05/19 Care time: The patient presented to the Emergency Department on the above date and was hospitalized for further evaluation of their emergent condition. - New Patient This patient is new to me today: Yes Date on this admission: 02/05/19 - Critical Care Critical Care patient: No
[2019-02-05] MEDS ORDERED: INSULIN (NOVOLOG) ASPART 100 UNITS/ML 10ML VIAL ONE (22:24)
[2019-02-05] MEDS: INSULIN SLIDING SCALE (NOVOLOG) 1 VIAL SQ SCH (22:24)
[2019-02-06 00:30] VITALS: BMI 25.7
[2019-02-06] MEDS: METOCLOPRAMIDE HCL 10 MG TABLET (FP) PO SCH ×3 (06:13→16:30)
[2019-02-06] MEDS: CARBIDOPA/LEVODOPA 25/100 TABLET (FP) PO SCH ×3 (06:13→22:04)
[2019-02-06] MEDS: INSULIN SLIDING SCALE (NOVOLOG) 1 VIAL SQ SCH ×4 (06:23→22:04)
[2019-02-06] MEDS ORDERED: VANCOMYCIN 1 GM PREMIX - 1 GM/200 ML BAG IVPB SCH (07:00)
[2019-02-06 08:15] LABS: BASO % 0.5 % (0-2.0); EOS % 3.8 % (0-4.5); HEMATOCRIT 28.5 % (35.4-49); HEMOGLOBIN 9.6 GM/dL (11.7-16.9); MCH 33.3 pg (25.7-33.7); MCHC 33.8 g/dl (32.0-35.9); MEAN CELL VOLUME 98.5 fl (80-96); MONO % 9.6 % (3.8-10.2); NEUT % 75.1 % (42.8-82.8); PLATELET COUNT 226 K/MM3 (134-434); RBC 2.89 M/mm3 (4.00-5.60); RDW 13.4 % (11.9-15.9); WHITE BLOOD COUNT 9.5 K/mm3 (4.0-10.0)
[2019-02-06 08:52] LABS: ANION GAP 7 MMOL/L (8-16); BLOOD UREA NITROGEN 25 mg/dL (7-18); CALCIUM 8.3 mg/dL (8.5-10.1); CHLORIDE 108 mmol/L (98-107); CO2 27 mmol/L (21-32); CREATININE 1.2 mg/dL (0.55-1.3); GLUCOSE,RANDOM 76 mg/dL (74-106); POTASSIUM 3.9 mmol/L (3.5-5.1); SODIUM 143 mmol/L (136-145)
[2019-02-06] MEDS ORDERED: PIPERACILLIN/TAZOB 4.5 GM 4.5 GM in DEXTROSE 5%-WATER 100 ML IVPB SCH ×2 (09:00→21:00)
[2019-02-06] MEDS ORDERED: PT OWN MED DRAWER 7, Y5N ONE (09:00)
[2019-02-06] MEDS: TAMSULOSIN HCL 0.4 MG CAP PO SCH (09:03)
[2019-02-06] MEDS: PANTOPRAZOLE 40 MG TABLET (FP) PO SCH (09:03)
[2019-02-06] MEDS: LISINOPRIL 5 MG TABLET (FP) PO SCH (09:03)
[2019-02-06] MEDS: MULTIVITAMINS (DAILY MVI) TABLET (FP) PO SCH (09:03)
[2019-02-06] MEDS: ZINC OXIDE 20% TOPICAL OINTMENT 30 GM TUBE TP SCH ×2 (09:03→22:05)
[2019-02-06] MEDS: CYANOCOBALAMIN (VITAMIN B-12) 100 MCG TABLET PO SCH (09:03)
[2019-02-06] MEDS: ASPIRIN 81 MG CHEWABLE TABLETS PO SCH (09:03)
[2019-02-06] MEDS: TIMOLOL 0.5% OPHTHALMIC SOL 5 ML BOTTLE OD SCH ×2 (09:04→22:05)
[2019-02-06] MEDS: CITALOPRAM HYDROBROMIDE 10 MG TABLET (FP) PO SCH (09:04)
[2019-02-06] MEDS ORDERED: INSULIN (NOVOLOG) ASPART 100 UNITS/ML 10ML VIAL ONE (11:16)
--- NOTE | 2019-02-06 11:47 | PN ---
Progress Note (short form) - Note Progress Note: Events noted no distress No SOB or cough Vital Signs - 24 hr 02/05/19 02/05/19 02/05/19 12:20 13:15 21:00 Temperature 99.5 F 98.1 F Pulse Rate 85 Pulse Rate [ 18 L Apical] Respiratory 16 20 Rate Blood Pressure 115/62 Blood Pressure 118/68 [Arm] O2 Sat by Pulse 92 L 100 100 Oximetry (%) 02/06/19 02/06/19 02/06/19 00:15 01:30 03:30 Temperature 98.5 F 98.6 F 98.1 F Pulse Rate 63 112 H 110 H Pulse Rate [ Apical] Respiratory 19 20 18 Rate Blood Pressure 120/61 127/66 120/60 Blood Pressure [Arm] O2 Sat by Pulse 98 Oximetry (%) 02/06/19 02/06/19 07:30 08:00 Temperature 98.2 F 98.3 F Pulse Rate 105 H 65 Pulse Rate [ Apical] Respiratory 20 20 Rate Blood Pressure 120/62 134/76 Blood Pressure [Arm] O2 Sat by Pulse Oximetry (%) Current Medications Generic Name Dose Route Start Last Admin Trade Name Freq PRN Reason Stop Dose Admin Aspirin 81 mg 02/06/19 10:00 02/06/19 09:03 Asa - PO 81 mg DAILY ASYA Administration Atorvastatin Calcium 20 mg 02/06/19 22:00 Lipitor - PO HS ASYA Carbidopa/Levodopa 1 each 02/06/19 06:00 02/06/19 06:13 Sinemet 25/100 - PO 1 each TID ASYA Administration Citalopram Hydrobromide 10 mg 02/06/19 10:00 02/06/19 09:04 Celexa - PO 10 mg DAILY ASYA Administration Cyanocobalamin 100 mcg 02/06/19 10:00 02/06/19 09:03 Vitamin B12 - PO 100 mcg DAILY ASYA Administration Docusate Sodium 200 mg 02/06/19 22:00 Colace - PO HS ASYA Vancomycin HCl 1 gm in 200 mls @ 166.667 mls/hr 02/06/19 07:00 02/06/19 09:02 Vancomycin 1 Gm Premix - IVPB 166.667 mls/hr Q12H ASYA Administration Protocol Piperacillin Sod/Tazobactam 100 mls @ 200 mls/hr 02/06/19 21:00 Sod 4.5 gm/ Dextrose IVPB Q6H-IV ASYA Protocol Piperacillin Sod/Tazobactam 100 mls @ 200 mls/hr 02/06/19 09:00 02/06/19 09: 00 Sod 4.5 gm/ Dextrose IVPB 02/07/19 03:29 Not Given Q6H-IV ASYA Insulin Aspart 1 vial 02/05/19 22:00 02/06/19 11:25 Novolog Vial Sliding Scale - SQ 2 units ACHS ASYA Administration Protocol Lisinopril 2.5 mg 02/06/19 10:00 02/06/19 09:03 Prinivil PO 2.5 mg DAILY ASYA Administration Metoclopramide HCl 5 mg 02/06/19 07:00 02/06/19 11:18 Reglan - PO 5 mg TIDAC ASYA Administration Mirtazapine 7.5 mg 02/06/19 22:00 Remeron - PO HS ASYA Multi-Ingredient Ointment 1 applic 02/06/19 10:00 02/06/19 09:03 Zinc Oxide TP 1 applic BID ASYA Administration Multivitamins/Minerals/Vitamin C 1 tab 02/06/19 10:00 02/06/19 09:03 Tab-A-Vit - PO 1 tab DAILY ASYA Administration Pantoprazole Sodium 40 mg 02/06/19 10:00 02/06/19 09:03 Protonix - PO 40 mg DAILY ASYA Administration Tamsulosin HCl 0.4 mg 02/06/19 08:30 02/06/19 09:03 Flomax - PO 0.4 mg DAILY@0830 ASYA Administration Timolol Maleate 1 drop 02/06/19 10:00 02/06/19 09:04 Timoptic 0.5% OD 1 drop BID ASYA Administration Laboratory Results - last 24 hr 02/05/19 02/05/19 02/05/19 13:33 13:33 13:33 WBC 15.1 H RBC 3.18 L Hgb 10.4 L Hct 31.3 L MCV 98.5 H MCH 32.6 MCHC 33.1 RDW 13.5 Plt Count 274 MPV 8.0 Absolute Neuts (auto) 13.2 H Neutrophils % 87.5 H Lymphocytes % 3.7 L D Monocytes % 8.6 Eosinophils % 0.0 D Basophils % 0.2 Nucleated RBC % 0 PT with INR 13.60 H INR 1.15 H Sodium 141 Potassium 4.3 Chloride 106 Carbon Dioxide 28 Anion Gap 7 L BUN 34 H Creatinine 1.3 Creat Clearance w eGFR 52.34 POC Glucometer Random Glucose 182 H Lactic Acid Calcium 8.6 Magnesium 2.1 Total Bilirubin 0.4 AST 19 ALT 16 Alkaline Phosphatase 61 Troponin I < 0.02 B-Natriuretic Peptide 645.1 H Total Protein 6.7 Albumin 3.2 L Urine Color Urine Appearance Urine pH Ur Specific [place] Urine Protein Urine Glucose (UA) Urine Ketones Urine Blood Urine Nitrite Urine Bilirubin Urine Urobilinogen Ur Leukocyte Esterase Urine WBC (Auto) Urine RBC (Auto) Urine Casts (Auto) U Epithel Cells (Auto) Urine Bacteria (Auto) Random Vancomycin 02/05/19 02/05/19 02/05/19 15:45 18:45 22:20 WBC RBC Hgb Hct MCV MCH MCHC RDW Plt Count MPV Absolute Neuts (auto) Neutrophils % Lymphocytes % Monocytes % Eosinophils % Basophils % Nucleated RBC % PT with INR INR Sodium Potassium Chloride Carbon Dioxide Anion Gap BUN Creatinine Creat Clearance w eGFR POC Glucometer 185 Random Glucose Lactic Acid 1.8 Calcium Magnesium Total Bilirubin AST ALT Alkaline Phosphatase Troponin I B-Natriuretic Peptide Total Protein Albumin Urine Color Dk yellow Urine Appearance Cloudy Urine pH 8.0 D Ur Specific [place] 1.014 Urine Protein 2+ H Urine Glucose (UA) Negative Urine Ketones Negative Urine Blood 1+ H Urine Nitrite Positive H Urine Bilirubin Negative Urine Urobilinogen 1.0 Ur Leukocyte Esterase 3+ H Urine WBC (Auto) 299 Urine RBC (Auto) 11 Urine Casts (Auto) 4 U Epithel Cells (Auto) 0.6 Urine Bacteria (Auto) 11.2 Random Vancomycin 02/06/19 02/06/19 02/06/19 06:00 06:19 07:00 WBC 9.5 RBC 2.89 L Hgb 9.6 L Hct 28.5 L MCV 98.5 H MCH 33.3 MCHC 33.8 RDW 13.4 Plt Count 226 MPV 8.0 Absolute Neuts (auto) 7.2 Neutrophils % 75.1 Lymphocytes % 11.0 D Monocytes % 9.6 Eosinophils % 3.8 D Basophils % 0.5 Nucleated RBC % 0 PT with INR INR Sodium 143 Potassium 3.9 Chloride 108 H Carbon Dioxide 27 Anion Gap 7 L BUN 25 H Creatinine 1.2 Creat Clearance w eGFR 57.41 POC Glucometer 74 Random Glucose 76 Lactic Acid Calcium 8.3 L Magnesium Total Bilirubin AST ALT Alkaline Phosphatase Troponin I B-Natriuretic Peptide Total Protein Albumin Urine Color Urine Appearance Urine pH Ur Specific [place] Urine Protein Urine Glucose (UA) Urine Ketones Urine Blood Urine Nitrite Urine Bilirubin Urine Urobilinogen Ur Leukocyte Esterase Urine WBC (Auto) Urine RBC (Auto) Urine Casts (Auto) U Epithel Cells (Auto) Urine Bacteria (Auto) Random Vancomycin 02/06/19 02/06/19 08:00 11:12 WBC RBC Hgb Hct MCV MCH MCHC RDW Plt Count MPV Absolute Neuts (auto) Neutrophils % Lymphocytes % Monocytes % Eosinophils % Basophils % Nucleated RBC % PT with INR INR Sodium Potassium Chloride Carbon Dioxide Anion Gap BUN Creatinine Creat Clearance w eGFR POC Glucometer 175 Random Glucose Lactic Acid Calcium Magnesium Total Bilirubin AST ALT Alkaline Phosphatase Troponin I B-Natriuretic Peptide Total Protein Albumin Urine Color Urine Appearance Urine pH Ur Specific [place] Urine Protein Urine Glucose (UA) Urine Ketones Urine Blood Urine Nitrite Urine Bilirubin Urine Urobilinogen Ur Leukocyte Esterase Urine WBC (Auto) Urine RBC (Auto) Urine Casts (Auto) U Epithel Cells (Auto) Urine Bacteria (Auto) Random Vancomycin 15.1 L S1 S2 RRR Lungs decreased No JVD Abd-soft, NT No edema PLAN Rt lung pneumonia Acute hypoxic respiratory failure possible UTI -- on iv antibiotics -- nebs standing -- continue with meds -- ID and Pulm eval -- cultures pending -- pt is DNR Problem List - Problems (1) Acute respiratory failure with hypoxia Code(s): J96.01 - ACUTE RESPIRATORY FAILURE WITH HYPOXIA (2) Leukocytosis Code(s): D72.829 - ELEVATED WHITE BLOOD CELL COUNT, UNSPECIFIED (3) Pneumonia Code(s): J18.9 - PNEUMONIA, UNSPECIFIED ORGANISM (4) Anemia Code(s): D64.9 - ANEMIA, UNSPECIFIED Qualifiers: Anemia type: other cause (5) CKD (chronic kidney disease), stage II Code(s): N18.2 - CHRONIC KIDNEY DISEASE, STAGE 2 (MILD)
--- NOTE | 2019-02-06 12:30 | CON.PULM ---
Consult Consult Specialty:: PULM/CCM Referred by:: MARU Reason for Consultation:: Abnormal CT chest - History of Present Illness Chief Complaint: hypoxemia History of Present Illness: 88 M, SNF resident, Dementia, HTN, HLD, Diabetes Mellitus, GERD, Renal Insufficiency, and PUD. Sent from the SNF and admitted via the ER due to Hypoxemia to 83% at the [facility]. In the ER his saturation was apparently found to be 92% on room air. Patient is not able to provide a history. CTA was performed: No evidence of PE. There is minimal non-specific atelectatic changes in the right base. No nodules, masses, or effusions. - History Source History Provided By: Medical Record Limitations to Obtaining History: Dementia - Past Medical History HISTORICAL RECORDS ADMINISTRATOR: Yes: Dementia Cardio/Vascular: Yes: HTN, Hyperlipdemia Gastrointestinal: Yes: GERD, Peptic Ulcer Disease Renal/: Yes: Renal Inusuff Endocrine: Yes: Diabetes Mellitus - Past Surgical History Past Surgical History: Yes: Joint Replacement (right hip bilateral knee) - Alcohol/Substance Use Hx Alcohol Use: Yes (Former (per daughters)) History of Substance Use: reports: None - Smoking History Smoking history: Never smoked Have you smoked in the past 12 months: No Aproximately how many cigarettes per day: 0 - Social History Usual Living Arrangement: Care Home ADL: Support Services History of Recent Travel: No Home Medications - Allergies Allergies/Adverse Reactions: Allergies Allergy/AdvReac Type Severity Reaction Status Date / Time No Known Allergies Allergy Verified 09/25/13 19:48 - Home Medications Home Medications: Ambulatory Orders Aspirin [ASA -] 81 mg PO DAILY 04/10/13 Metoclopramide HCl 5 mg PO TID 04/10/13 Omeprazole [Prilosec (RX)] 40 mg PO DAILY 04/10/13 Tamsulosin HCl 0.4 mg PO DAILY 04/10/13 metFORMIN HCL [Glucophage] 1,000 mg PO BID 04/10/13 Citalopram Hydrobromide [Celexa -] 10 mg PO DAILY 09/25/13 Lisinopril [Prinivil -] 2.5 mg PO DAILY 09/25/13 Ascorbate Calcium [Vitamin C] 500 mg PO DAILY 11/04/17 Cholecalciferol (Vitamin D3) [Vitamin D3 -] 1,000 unit PO DAILY 11/04/17 Cyanocobalamin [Vitamin B12 -] 100 mcg PO DAILY 11/04/17 Docusate Sodium [Colace] 200 mg PO HS 11/04/17 Insulin Aspart [Novolog Flexpen] 0 unit SQ TID 11/04/17 Methyl Salicylate/Menthol [Bengay Greaseless Cream] 0 gm TP DAILY 11/04/17 Mirtazapine 7.5 mg PO HS 11/04/17 Multivitamin [One Daily] 1 each PO DAILY 11/04/17 Simvastatin [Zocor -] 40 mg PO HS 11/04/17 Timolol 0.5% [Timoptic 0.5%] 1 drop OD BID 11/04/17 Zinc Oxide 20% Topical Oint 1 applic TP BID 11/04/17 Acetaminophen [Tylenol .Regular Strength -] 650 mg PO Q6H PRN tablet 11/07/17 Carbidopa/Levodopa 25/100 [Sinemet 25/100 -] 1 tab PO TID 02/05/19 Citalopram Hydrobromide [Celexa -] 10 mg PO DAILY 02/05/19 Insulin Glargine,Hum.rec.anlog [Lantus] 12 units SQ DAILY 02/05/19 Metformin HCl [Glucophage] 1 tab PO BID 02/05/19 Phenazopyridine HCl 100 mg PO BID 02/05/19 Review of Systems Unable to obtain ROS, reason: not able to provide Physical Exam Vital Sings: Vital Signs Temperature 98.3 F 02/06/19 08:00 Pulse Rate 65 02/06/19 08:00 Respiratory Rate 20 02/06/19 08:00 Blood Pressure 134/76 02/06/19 08:00 O2 Sat by Pulse Oximetry (%) 98 02/06/19 00:15 Constitutional: Yes: No Distress Eyes: Yes: Conjunctiva Clear, EOM Intact HENT: Yes: Atraumatic, Normocephalic Neck: Yes: Supple, Trachea Midline Cardiovascular: Yes: Regular Rate and Rhythm Respiratory: Yes: Diminished, On Nasal O2. No: Accessory Muscle Use, Rales, Rhonchi, SOB, SOB on Exertion, Stridor, Tachypnea, Wheezes ...Inspection: Yes: WNL ...Clubbing: No Gastrointestinal: Yes: Normal Bowel Sounds, Soft Musculoskeletal: Yes: WNL Extremities: Yes: WNL Edema: No Peripheral Pulses WNL: Yes Integumentary: Yes: Venous Stasis Changes Neurological: Yes: Confusion Labs: CBC, BMP 02/06/19 06:00 02/06/19 07:00 Imaging - Results Chest X-ray: Report Reviewed, Image Reviewed Problem List - Problems (1) Atelectasis Code(s): J98.11 - ATELECTASIS (2) CKD (chronic kidney disease), stage II Code(s): N18.2 - CHRONIC KIDNEY DISEASE, STAGE 2 (MILD) (3) Dementia Code(s): F03.90 - UNSPECIFIED DEMENTIA WITHOUT BEHAVIORAL DISTURBANCE Qualifiers: Dementia type: unspecified type (4) GERD (gastroesophageal reflux disease) Code(s): K21.9 - GASTRO-ESOPHAGEAL REFLUX DISEASE WITHOUT ESOPHAGITIS (5) HLD (hyperlipidemia) Code(s): E78.5 - HYPERLIPIDEMIA, UNSPECIFIED Qualifiers: Hyperlipidemia type: pure hypercholesterolemia Qualified Code(s): E78.00 - Pure hypercholesterolemia, unspecified; E78.0 - Pure hypercholesterolemia (6) HTN (hypertension) Code(s): I10 - ESSENTIAL (PRIMARY) HYPERTENSION Qualifiers: Hypertension type: essential hypertension Qualified Code(s): I10 - Essential (primary) hypertension (7) PUD (peptic ulcer disease) Code(s): K27.9 - PEPTIC ULC, SITE UNSP, UNSP AC OR CHR, W/O HEMOR OR PERF (8) Parkinsonism Code(s): G20 - PARKINSON'S DISEASE Assessment/Plan Would monitor off ABX No indication for systemic steroids Can use BD TX PRN Aspiration precautions Supplemental O2 as needed There is no Pulmonary contraindication Thank you. Dr Garcia
[2019-02-06] MEDS ORDERED: PIPERACILLIN/TAZOB 4.5 GM 4.5 GM in DEXTROSE 5%-WATER 100 ML IVPB ONE (12:50)
[2019-02-06] MEDS ORDERED: PIPERACILLIN/TAZOBACTAM 4.5 GM VIAL IVPB ONE (13:49)
[2019-02-06] MEDS ORDERED: DEXTROSE 5%-WATER 100 ML IVPB ONE (13:49)
--- NOTE | 2019-02-06 15:00 | PN ---
Progress Note, Physician History of Present Illness: 88 y.o. male [place] resident with PMH of DM, CKD, PVD, anemia, HTN, HLD, GERD, dementia, Parkinsons brought to ER due to reported hypoxia with 82% O2 saturation and episodes of n/v. Pt in the ER with mild temp elevation to 99.5F and tachycardia as well as leukocytosis. Currently patient is alert, afebrile, verbally responsive. States he feels well, denying SOB, abd pain but is an unreliable source. Currently on empiric antibiotics. Labs and imaging results noted. - Current Medication List Current Medications: Active Medications Albuterol/Ipratropium (Duoneb -) 1 amp NEB RQID [facility] Aspirin (Asa -) 81 mg PO DAILY [facility] Last Admin: 02/06/19 09:03 Dose: 81 mg Atorvastatin Calcium (Lipitor -) 20 mg PO [facility] Carbidopa/Levodopa (Sinemet 25/100 -) 1 each PO TID [facility] Last Admin: 02/06/19 13:51 Dose: 1 each Citalopram Hydrobromide (Celexa -) 10 mg PO DAILY [facility] Last Admin: 02/06/19 09:04 Dose: 10 mg Cyanocobalamin (Vitamin B12 -) 100 mcg PO DAILY [facility] Last Admin: 02/06/19 09:03 Dose: 100 mcg Docusate Sodium (Colace -) 200 mg PO [facility] Vancomycin HCl (Vancomycin 1 Gm Premix -) 1 gm in 200 mls @ 166.667 mls/hr IVPB Q12H [facility]; Protocol Last Admin: 02/06/19 09:02 Dose: 166.667 mls/hr Piperacillin Sod/Tazobactam (Sod 3.375 gm/ Dextrose) 50 mls @ 100 mls/hr IVPB Q8H-IV [facility]; Protocol Insulin Aspart (Novolog Vial Sliding Scale -) 1 vial SQ ACHS [facility]; Protocol Last Admin: 02/06/19 11:25 Dose: 2 units Lisinopril (Prinivil) 2.5 mg PO DAILY [facility] Last Admin: 02/06/19 09:03 Dose: 2.5 mg Metoclopramide HCl (Reglan -) 5 mg PO TIDAC [facility] Last Admin: 02/06/19 11:18 Dose: 5 mg Mirtazapine (Remeron -) 7.5 mg PO [facility] Multi-Ingredient Ointment (Zinc Oxide) 1 applic TP BID [facility] Last Admin: 02/06/19 09:03 Dose: 1 applic Multivitamins/Minerals/Vitamin C (Tab-A-Vit -) 1 tab PO DAILY [facility] Last Admin: 02/06/19 09:03 Dose: 1 tab Pantoprazole Sodium (Protonix -) 40 mg PO DAILY [facility] Last Admin: 02/06/19 09:03 Dose: 40 mg Tamsulosin HCl (Flomax -) 0.4 mg PO DAILY@0830 [facility] Last Admin: 02/06/19 09:03 Dose: 0.4 mg Timolol Maleate (Timoptic 0.5%) 1 drop OD BID [facility] Last Admin: 02/06/19 09:04 Dose: 1 drop - Objective Vital Signs: Vital Signs Temperature 98.3 F 02/06/19 13:51 Pulse Rate 72 02/06/19 13:51 Respiratory Rate 20 02/06/19 09:00 Blood Pressure 110/55 L 02/06/19 13:51 O2 Sat by Pulse Oximetry (%) 98 02/06/19 09:00 Constitutional: Yes: No Distress, Calm Eyes: Yes: Conjunctiva Clear Neck: Yes: Supple Cardiovascular: Yes: Regular Rate and Rhythm Respiratory: Yes: CTA Bilaterally Gastrointestinal: Yes: Normal Bowel Sounds, Soft Genitourinary: Yes: WNL Musculoskeletal: Yes: WNL Extremities: Yes: WNL Edema: No Integumentary: Yes: WNL Neurological: Yes: Alert, Tremors (RUE) Labs: CBC, BMP 02/06/19 06:00 02/06/19 07:00 INR, PTT INR 1.15 (0.83-1.09) H 02/05/19 13:33 Laboratory Tests 02/05/19 02/05/19 02/05/19 13:33 13:33 13:33 WBC 15.1 H RBC 3.18 L Hgb 10.4 L Hct 31.3 L MCV 98.5 H MCH 32.6 MCHC 33.1 RDW 13.5 Plt Count 274 MPV 8.0 Absolute Neuts (auto) 13.2 H Neutrophils % 87.5 H Lymphocytes % 3.7 L D Monocytes % 8.6 Eosinophils % 0.0 D Basophils % 0.2 Nucleated RBC % 0 PT with INR 13.60 H INR 1.15 H Sodium 141 Potassium 4.3 Chloride 106 Carbon Dioxide 28 Anion Gap 7 L BUN 34 H Creatinine 1.3 Creat Clearance w eGFR 52.34 POC Glucometer Random Glucose 182 H Lactic Acid Calcium 8.6 Magnesium 2.1 Total Bilirubin 0.4 AST 19 ALT 16 Alkaline Phosphatase 61 Troponin I < 0.02 B-Natriuretic Peptide 645.1 H Total Protein 6.7 Albumin 3.2 L Urine Color Urine Appearance Urine pH Ur Specific [place] Urine Protein Urine Glucose (UA) Urine Ketones Urine Blood Urine Nitrite Urine Bilirubin Urine Urobilinogen Ur Leukocyte Esterase Urine WBC (Auto) Urine RBC (Auto) Urine Casts (Auto) U Epithel Cells (Auto) Urine Bacteria (Auto) Random Vancomycin 02/05/19 02/05/19 02/05/19 15:45 18:45 22:20 WBC RBC Hgb Hct MCV MCH MCHC RDW Plt Count MPV Absolute Neuts (auto) Neutrophils % Lymphocytes % Monocytes % Eosinophils % Basophils % Nucleated RBC % PT with INR INR Sodium Potassium Chloride Carbon Dioxide Anion Gap BUN Creatinine Creat Clearance w eGFR POC Glucometer 185 Random Glucose Lactic Acid 1.8 Calcium Magnesium Total Bilirubin AST ALT Alkaline Phosphatase Troponin I B-Natriuretic Peptide Total Protein Albumin Urine Color Dk yellow Urine Appearance Cloudy Urine pH 8.0 D Ur Specific [place] 1.014 Urine Protein 2+ H Urine Glucose (UA) Negative Urine Ketones Negative Urine Blood 1+ H Urine Nitrite Positive H Urine Bilirubin Negative Urine Urobilinogen 1.0 Ur Leukocyte Esterase 3+ H Urine WBC (Auto) 299 Urine RBC (Auto) 11 Urine Casts (Auto) 4 U Epithel Cells (Auto) 0.6 Urine Bacteria (Auto) 11.2 Random Vancomycin 02/06/19 02/06/19 02/06/19 06:00 06:19 07:00 WBC 9.5 RBC 2.89 L Hgb 9.6 L Hct 28.5 L MCV 98.5 H MCH 33.3 MCHC 33.8 RDW 13.4 Plt Count 226 MPV 8.0 Absolute Neuts (auto) 7.2 Neutrophils % 75.1 Lymphocytes % 11.0 D Monocytes % 9.6 Eosinophils % 3.8 D Basophils % 0.5 Nucleated RBC % 0 PT with INR INR Sodium 143 Potassium 3.9 Chloride 108 H Carbon Dioxide 27 Anion Gap 7 L BUN 25 H Creatinine 1.2 Creat Clearance w eGFR 57.41 POC Glucometer 74 Random Glucose 76 Lactic Acid Calcium 8.3 L Magnesium Total Bilirubin AST ALT Alkaline Phosphatase Troponin I B-Natriuretic Peptide Total Protein Albumin Urine Color Urine Appearance Urine pH Ur Specific [place] Urine Protein Urine Glucose (UA) Urine Ketones Urine Blood Urine Nitrite Urine Bilirubin Urine Urobilinogen Ur Leukocyte Esterase Urine WBC (Auto) Urine RBC (Auto) Urine Casts (Auto) U Epithel Cells (Auto) Urine Bacteria (Auto) Random Vancomycin 02/06/19 02/06/19 08:00 11:12 WBC RBC Hgb Hct MCV MCH MCHC RDW Plt Count MPV Absolute Neuts (auto) Neutrophils % Lymphocytes % Monocytes % Eosinophils % Basophils % Nucleated RBC % PT with INR INR Sodium Potassium Chloride Carbon Dioxide Anion Gap BUN Creatinine Creat Clearance w eGFR POC Glucometer 175 Random Glucose Lactic Acid Calcium Magnesium Total Bilirubin AST ALT Alkaline Phosphatase Troponin I B-Natriuretic Peptide Total Protein Albumin Urine Color Urine Appearance Urine pH Ur Specific [place] Urine Protein Urine Glucose (UA) Urine Ketones Urine Blood Urine Nitrite Urine Bilirubin Urine Urobilinogen Ur Leukocyte Esterase Urine WBC (Auto) Urine RBC (Auto) Urine Casts (Auto) U Epithel Cells (Auto) Urine Bacteria (Auto) Random Vancomycin 15.1 L u/a: 3+ LE, +wbc/bact blood cultures pending Problem List - Problems (1) Leukocytosis Code(s): D72.829 - ELEVATED WHITE BLOOD CELL COUNT, UNSPECIFIED (2) UTI (urinary tract infection) Code(s): N39.0 - URINARY TRACT INFECTION, SITE NOT SPECIFIED Qualifiers: Urinary tract infection type: site unspecified Hematuria presence: with hematuria Qualified Code(s): N39.0 - Urinary tract infection, site not specified; R31.9 - Hematuria, unspecified (3) Anemia Code(s): D64.9 - ANEMIA, UNSPECIFIED Qualifiers: Anemia type: other cause (4) CKD (chronic kidney disease), stage II Code(s): N18.2 - CHRONIC KIDNEY DISEASE, STAGE 2 (MILD) (5) Fever Code(s): R50.9 - FEVER, UNSPECIFIED (6) GERD (gastroesophageal reflux disease) Code(s): K21.9 - GASTRO-ESOPHAGEAL REFLUX DISEASE WITHOUT ESOPHAGITIS (7) HLD (hyperlipidemia) Code(s): E78.5 - HYPERLIPIDEMIA, UNSPECIFIED Qualifiers: Hyperlipidemia type: pure hypercholesterolemia Qualified Code(s): E78.00 - Pure hypercholesterolemia, unspecified; E78.0 - Pure hypercholesterolemia (8) HTN (hypertension) Code(s): I10 - ESSENTIAL (PRIMARY) HYPERTENSION Qualifiers: Hypertension type: essential hypertension Qualified Code(s): I10 - Essential (primary) hypertension (9) Parkinsonism Code(s): G20 - PARKINSON'S DISEASE Assessment/Plan 88 y.o. male with multiple medical problems present with reported hypoxia, noted to have low grade fever and leukocytosis. CT abd/pelvis with bladder wall thickening and U/A suggestive of UTI UTI Resolved Leukocytosis/Fever DM CKD Anemia GERD dementia Parkinson's -- d/c Vancomycin, continue Zosyn for now -- f/u blood and urine cultures- results pending, adjust antibiotics if indicated -- Pt currently pt is alert, afebrile, wbc normal, without distress Will follow Thank you
--- NOTE | 2019-02-06 15:14 | EKG ---
Test Reason : Blood Pressure : / mmHG Vent. Rate : 073 BPM Atrial Rate : 073 BPM P-R Int : 160 ms QRS Dur : 086 ms QT Int : 402 ms P-R-T Axes : -24 -19 002 degrees QTc Int : 442 ms NORMAL SINUS RHYTHM NORMAL ECG WHEN COMPARED WITH ECG OF 05-NOV-2017 09:21, NO SIGNIFICANT CHANGE WAS FOUND Confirmed by VICKI BELCHER MD ([id number]) on 02/06/2019 3:13:41 PM Referred By: Confirmed By:VICKI BELCHER MD
[2019-02-06] MEDS: ALBUTEROL SO4 2.5/IPRATROPIUM 0.5 INH SOL 3 ML VIAL.NEB. NEB SCH ×2 (16:23→20:43)
[2019-02-06] MEDS ORDERED: DEXTROSE 5%-WATER - 50 ML IVPB ONE (17:51)
[2019-02-06] MEDS ORDERED: PIPERACILLIN/TAZOBACTAM 3.375 GM VIAL IVPB ONE (17:51)
[2019-02-06] MEDS: PIPERACILLIN/TAZOB 3.375 GM 3.375 GM in DEXTROSE 5%-WATER - 50 ML IVPB SCH (18:26)
[2019-02-06] MEDS: DOCUSATE SODIUM 100 MG CAPSULE (FP) PO SCH (22:04)
[2019-02-06] MEDS: MIRTAZAPINE 15 MG TABLET (FP) PO SCH (22:04)
[2019-02-06] MEDS: ATORVASTATIN CA 20 MG TABLET (FP) PO SCH (22:04)
[2019-02-07] MEDS ORDERED: PIPERACILLIN/TAZOBACTAM 3.375 GM VIAL IVPB ONE ×3 (00:40→17:27)
[2019-02-07] MEDS ORDERED: DEXTROSE 5%-WATER - 50 ML IVPB ONE ×3 (00:40→17:27)
[2019-02-07] MEDS: PIPERACILLIN/TAZOB 3.375 GM 3.375 GM in DEXTROSE 5%-WATER - 50 ML IVPB SCH ×3 (02:00→17:31)
[2019-02-07] MEDS: CARBIDOPA/LEVODOPA 25/100 TABLET (FP) PO SCH ×3 (06:12→21:39)
[2019-02-07] MEDS: INSULIN SLIDING SCALE (NOVOLOG) 1 VIAL SQ SCH ×4 (06:12→21:36)
[2019-02-07] MEDS: METOCLOPRAMIDE HCL 10 MG TABLET (FP) PO SCH ×3 (06:12→16:45)
[2019-02-07] MEDS: ALBUTEROL SO4 2.5/IPRATROPIUM 0.5 INH SOL 3 ML VIAL.NEB. NEB SCH ×4 (07:33→20:31)
[2019-02-07] MEDS: TAMSULOSIN HCL 0.4 MG CAP PO SCH (08:27)
[2019-02-07] MEDS ORDERED: PT OWN MED DRAWER 7, Y5N ONE (09:03)
[2019-02-07] MEDS: LISINOPRIL 5 MG TABLET (FP) PO SCH (09:08)
[2019-02-07] MEDS: ASPIRIN 81 MG CHEWABLE TABLETS PO SCH (09:08)
[2019-02-07] MEDS: CITALOPRAM HYDROBROMIDE 10 MG TABLET (FP) PO SCH (09:08)
[2019-02-07] MEDS: PANTOPRAZOLE 40 MG TABLET (FP) PO SCH (09:08)
[2019-02-07] MEDS: MULTIVITAMINS (DAILY MVI) TABLET (FP) PO SCH (09:08)
[2019-02-07] MEDS: CYANOCOBALAMIN (VITAMIN B-12) 100 MCG TABLET PO SCH (09:08)
[2019-02-07] MEDS: TIMOLOL 0.5% OPHTHALMIC SOL 5 ML BOTTLE OD SCH ×2 (09:09→21:40)
[2019-02-07] MEDS: ZINC OXIDE 20% TOPICAL OINTMENT 30 GM TUBE TP SCH ×2 (09:09→21:40)
--- NOTE | 2019-02-07 10:24 | PN ---
Progress Note (short form) - Note Progress Note: Events noted no distress No SOB or cough comfortable Vital Signs - 24 hr 02/06/19 02/06/19 02/07/19 22:00 23:54 06:07 Temperature 99.4 F 99.1 F Pulse Rate 103 H 93 H Respiratory 20 20 Rate Blood Pressure 102/53 L 137/85 O2 Sat by Pulse 98 Oximetry (%) 02/07/19 02/07/19 09:00 12:00 Temperature 98.9 F Pulse Rate 72 Respiratory 20 20 Rate Blood Pressure 136/78 O2 Sat by Pulse 95 Oximetry (%) Current Medications Generic Name Dose Route Start Last Admin Trade Name Freq PRN Reason Stop Dose Admin Albuterol/Ipratropium 1 amp 02/06/19 16:00 02/07/19 15:46 Duoneb - NEB 1 amp RQID [facility] Administration Aspirin 81 mg 02/06/19 10:00 02/07/19 09:08 Asa - PO 81 mg DAILY [facility] Administration Atorvastatin Calcium 20 mg 02/06/19 22:00 02/06/19 22:04 Lipitor - PO 20 mg HS [facility] Administration Carbidopa/Levodopa 1 each 02/06/19 06:00 02/07/19 14:11 Sinemet 25/100 - PO 1 each TID [facility] Administration Citalopram Hydrobromide 10 mg 02/06/19 10:00 02/07/19 09:08 Celexa - PO 10 mg DAILY [facility] Administration Cyanocobalamin 100 mcg 02/06/19 10:00 02/07/19 09:08 Vitamin B12 - PO 100 mcg DAILY [facility] Administration Docusate Sodium 200 mg 02/06/19 22:00 02/06/19 22:04 Colace - PO 200 mg HS [facility] Administration Piperacillin Sod/Tazobactam 50 mls @ 100 mls/hr 02/06/19 18:00 02/07/19 17:31 Sod 3.375 gm/ Dextrose IVPB 100 mls/hr Q8H-IV [facility] Administration Protocol Insulin Aspart 1 vial 02/05/19 22:00 02/07/19 16:50 Novolog Vial Sliding Scale - SQ 2 units ACHS [facility] Administration Protocol Lisinopril 2.5 mg 02/06/19 10:00 02/07/19 09:08 Prinivil PO 2.5 mg DAILY [facility] Administration Metoclopramide HCl 5 mg 02/06/19 07:00 02/07/19 16:45 Reglan - PO 5 mg TIDAC [facility] Administration Mirtazapine 7.5 mg 02/06/19 22:00 02/06/19 22:04 Remeron - PO 7.5 mg HS [facility] Administration Multi-Ingredient Ointment 1 applic 02/06/19 10:00 02/07/19 09:09 Zinc Oxide TP 1 applic BID [facility] Administration Multivitamins/Minerals/Vitamin C 1 tab 02/06/19 10:00 02/07/19 09:08 Tab-A-Vit - PO 1 tab DAILY [facility] Administration Pantoprazole Sodium 40 mg 02/06/19 10:00 02/07/19 09:08 Protonix - PO 40 mg DAILY [facility] Administration Tamsulosin HCl 0.4 mg 02/06/19 08:30 02/07/19 08:27 Flomax - PO 0.4 mg DAILY@0830 [facility] Administration Timolol Maleate 1 drop 02/06/19 10:00 02/07/19 09:09 Timoptic 0.5% OD 1 drop BID [facility] Administration Laboratory Results - last 24 hr 02/06/19 02/07/19 02/07/19 22:02 06:11 11:47 POC Glucometer 105 117 196 02/07/19 16:49 POC Glucometer 189 S1 S2 RRR Lungs decreased No JVD Abd-soft, NT No edema PLAN Rt lung pneumonia Acute hypoxic respiratory failure possible UTI -- on iv antibiotics -- nebs standing -- continue with meds -- ID and Pulm eval noted -- blood cultures negative and urine culture positive for proteus -- pt is DNR Problem List - Problems (1) Acute respiratory failure with hypoxia Code(s): J96.01 - ACUTE RESPIRATORY FAILURE WITH HYPOXIA (2) Leukocytosis Code(s): D72.829 - ELEVATED WHITE BLOOD CELL COUNT, UNSPECIFIED (3) Pneumonia Code(s): J18.9 - PNEUMONIA, UNSPECIFIED ORGANISM (4) Anemia Code(s): D64.9 - ANEMIA, UNSPECIFIED Qualifiers: Anemia type: other cause (5) CKD (chronic kidney disease), stage II Code(s): N18.2 - CHRONIC KIDNEY DISEASE, STAGE 2 (MILD)
[2019-02-07] MEDS ORDERED: INSULIN (NOVOLOG) ASPART 100 UNITS/ML 10ML VIAL ONE ×3 (11:43→20:49)
--- NOTE | 2019-02-07 12:08 | PN ---
Progress Note (short form) - Note Progress Note: Resting in NAD on 2 L NC O2. Afebrile overnight. Noted started on ABX per ID. Intake & Output 02/04/19 02/05/19 02/06/19 02/07/19 23:59 23:59 23:59 23:59 Intake Total 890 275 Balance 890 275 Weight 157 lb 164 lb 2 oz Last Vital Signs Temp Pulse Resp BP Pulse Ox 99.1 F 93 H 20 137/85 98 02/07/19 06:07 02/07/19 06:07 02/07/19 06:07 02/07/19 06:07 02/06/19 22:00 Active Medications Albuterol/Ipratropium (Duoneb -) 1 amp NEB RQID [facility] Last Admin: 02/07/19 11:22 Dose: 1 amp Aspirin (Asa -) 81 mg PO DAILY [facility] Last Admin: 02/07/19 09:08 Dose: 81 mg Atorvastatin Calcium (Lipitor -) 20 mg PO HS [facility] Last Admin: 02/06/19 22:04 Dose: 20 mg Carbidopa/Levodopa (Sinemet 25/100 -) 1 each PO TID [facility] Last Admin: 02/07/19 06:12 Dose: 1 each Citalopram Hydrobromide (Celexa -) 10 mg PO DAILY [facility] Last Admin: 02/07/19 09:08 Dose: 10 mg Cyanocobalamin (Vitamin B12 -) 100 mcg PO DAILY [facility] Last Admin: 02/07/19 09:08 Dose: 100 mcg Docusate Sodium (Colace -) 200 mg PO [facility] Last Admin: 02/06/19 22:04 Dose: 200 mg Piperacillin Sod/Tazobactam (Sod 3.375 gm/ Dextrose) 50 mls @ 100 mls/hr IVPB Q8H-IV [facility]; Protocol Last Admin: 02/07/19 09:07 Dose: 100 mls/hr Insulin Aspart (Novolog Vial Sliding Scale -) 1 vial SQ ACHS [facility]; Protocol Last Admin: 02/07/19 11:49 Dose: 2 units Lisinopril (Prinivil) 2.5 mg PO DAILY [facility] Last Admin: 02/07/19 09:08 Dose: 2.5 mg Metoclopramide HCl (Reglan -) 5 mg PO TIDAC [facility] Last Admin: 02/07/19 06:12 Dose: 5 mg Mirtazapine (Remeron -) 7.5 mg PO HS [facility] Last Admin: 02/06/19 22:04 Dose: 7.5 mg Multi-Ingredient Ointment (Zinc Oxide) 1 applic TP BID [facility] Last Admin: 02/07/19 09:09 Dose: 1 applic Multivitamins/Minerals/Vitamin C (Tab-A-Vit -) 1 tab PO DAILY [facility] Last Admin: 02/07/19 09:08 Dose: 1 tab Pantoprazole Sodium (Protonix -) 40 mg PO DAILY [facility] Last Admin: 02/07/19 09:08 Dose: 40 mg Tamsulosin HCl (Flomax -) 0.4 mg PO DAILY@0830 [facility] Last Admin: 02/07/19 08:27 Dose: 0.4 mg Timolol Maleate (Timoptic 0.5%) 1 drop OD BID [facility] Last Admin: 02/07/19 09:09 Dose: 1 drop Constitutional: Yes: No Distress Eyes: Yes: Conjunctiva Clear, EOM Intact HENT: Yes: Atraumatic, Normocephalic Neck: Yes: Supple, Trachea Midline Cardiovascular: Yes: Regular Rate and Rhythm Respiratory: Yes: Diminished, On Nasal O2. No: Accessory Muscle Use, Rales, Rhonchi, SOB, SOB on Exertion, Stridor, Tachypnea, Wheezes ...Inspection: Yes: WNL ...Clubbing: No Gastrointestinal: Yes: Normal Bowel Sounds, Soft Musculoskeletal: Yes: WNL Extremities: Yes: WNL Edema: No Peripheral Pulses WNL: Yes Integumentary: Yes: Venous Stasis Changes Neurological: Yes: Confusion Labs: Laboratory Results - last 24 hr 02/06/19 02/06/19 02/07/19 16:16 22:02 06:11 POC Glucometer 164 105 117 02/07/19 11:47 POC Glucometer 196 Problem List - Problems (1) Atelectasis Code(s): J98.11 - ATELECTASIS (2) CKD (chronic kidney disease), stage II Code(s): N18.2 - CHRONIC KIDNEY DISEASE, STAGE 2 (MILD) (3) Dementia Code(s): F03.90 - UNSPECIFIED DEMENTIA WITHOUT BEHAVIORAL DISTURBANCE Qualifiers: Dementia type: unspecified type (4) GERD (gastroesophageal reflux disease) Code(s): K21.9 - GASTRO-ESOPHAGEAL REFLUX DISEASE WITHOUT ESOPHAGITIS (5) HLD (hyperlipidemia) Code(s): E78.5 - HYPERLIPIDEMIA, UNSPECIFIED Qualifiers: Hyperlipidemia type: pure hypercholesterolemia Qualified Code(s): E78.00 - Pure hypercholesterolemia, unspecified; E78.0 - Pure hypercholesterolemia (6) HTN (hypertension) Code(s): I10 - ESSENTIAL (PRIMARY) HYPERTENSION Qualifiers: Hypertension type: essential hypertension Qualified Code(s): I10 - Essential (primary) hypertension (7) PUD (peptic ulcer disease) Code(s): K27.9 - PEPTIC ULC, SITE UNSP, UNSP AC OR CHR, W/O HEMOR OR PERF (8) Parkinsonism Code(s): G20 - PARKINSON'S DISEASE Assessment/Plan Noted ABX were started by ID, Low threshold to deescalate or monitor off if he remains afebrile and stable No indication for systemic steroids Can use BD TX PRN Aspiration precautions Supplemental O2 as needed Dr Garcia Problem List - Problems (1) Atelectasis Code(s): J98.11 - ATELECTASIS (2) CKD (chronic kidney disease), stage II Code(s): N18.2 - CHRONIC KIDNEY DISEASE, STAGE 2 (MILD) (3) Dementia Code(s): F03.90 - UNSPECIFIED DEMENTIA WITHOUT BEHAVIORAL DISTURBANCE Qualifiers: Dementia type: unspecified type (4) GERD (gastroesophageal reflux disease) Code(s): K21.9 - GASTRO-ESOPHAGEAL REFLUX DISEASE WITHOUT ESOPHAGITIS (5) HLD (hyperlipidemia) Code(s): E78.5 - HYPERLIPIDEMIA, UNSPECIFIED Qualifiers: Hyperlipidemia type: pure hypercholesterolemia Qualified Code(s): E78.00 - Pure hypercholesterolemia, unspecified; E78.0 - Pure hypercholesterolemia (6) HTN (hypertension) Code(s): I10 - ESSENTIAL (PRIMARY) HYPERTENSION Qualifiers: Hypertension type: essential hypertension Qualified Code(s): I10 - Essential (primary) hypertension (7) PUD (peptic ulcer disease) Code(s): K27.9 - PEPTIC ULC, SITE UNSP, UNSP AC OR CHR, W/O HEMOR OR PERF (8) Parkinsonism Code(s): G20 - PARKINSON'S DISEASE
--- NOTE | 2019-02-07 15:38 | PN ---
Progress Note, Physician History of Present Illness: Pt is alert and responsive. Denies any problems. Tmax 99.5F, without acute distress. - Current Medication List Current Medications: Active Medications Albuterol/Ipratropium (Duoneb -) 1 amp NEB RQID [facility] Last Admin: 02/07/19 11:22 Dose: 1 amp Aspirin (Asa -) 81 mg PO DAILY [facility] Last Admin: 02/07/19 09:08 Dose: 81 mg Atorvastatin Calcium (Lipitor -) 20 mg PO HS [facility] Last Admin: 02/06/19 22:04 Dose: 20 mg Carbidopa/Levodopa (Sinemet 25/100 -) 1 each PO TID [facility] Last Admin: 02/07/19 14:11 Dose: 1 each Citalopram Hydrobromide (Celexa -) 10 mg PO DAILY [facility] Last Admin: 02/07/19 09:08 Dose: 10 mg Cyanocobalamin (Vitamin B12 -) 100 mcg PO DAILY [facility] Last Admin: 02/07/19 09:08 Dose: 100 mcg Docusate Sodium (Colace -) 200 mg PO [facility] Last Admin: 02/06/19 22:04 Dose: 200 mg Piperacillin Sod/Tazobactam (Sod 3.375 gm/ Dextrose) 50 mls @ 100 mls/hr IVPB Q8H-IV [facility]; Protocol Last Admin: 02/07/19 09:07 Dose: 100 mls/hr Insulin Aspart (Novolog Vial Sliding Scale -) 1 vial SQ ACHS [facility]; Protocol Last Admin: 02/07/19 11:49 Dose: 2 units Lisinopril (Prinivil) 2.5 mg PO DAILY [facility] Last Admin: 02/07/19 09:08 Dose: 2.5 mg Metoclopramide HCl (Reglan -) 5 mg PO TIDAC [facility] Last Admin: 02/07/19 12:00 Dose: 5 mg Mirtazapine (Remeron -) 7.5 mg PO [facility] Last Admin: 02/06/19 22:04 Dose: 7.5 mg Multi-Ingredient Ointment (Zinc Oxide) 1 applic TP BID [facility] Last Admin: 02/07/19 09:09 Dose: 1 applic Multivitamins/Minerals/Vitamin C (Tab-A-Vit -) 1 tab PO DAILY [facility] Last Admin: 02/07/19 09:08 Dose: 1 tab Pantoprazole Sodium (Protonix -) 40 mg PO DAILY [facility] Last Admin: 02/07/19 09:08 Dose: 40 mg Tamsulosin HCl (Flomax -) 0.4 mg PO DAILY@0830 [facility] Last Admin: 02/07/19 08:27 Dose: 0.4 mg Timolol Maleate (Timoptic 0.5%) 1 drop OD BID [facility] Last Admin: 02/07/19 09:09 Dose: 1 drop - Objective Vital Signs: Vital Signs Temperature 98.9 F 02/07/19 12:00 Pulse Rate 72 02/07/19 12:00 Respiratory Rate 20 02/07/19 12:00 Blood Pressure 136/78 02/07/19 12:00 O2 Sat by Pulse Oximetry (%) 95 02/07/19 09:00 Constitutional: Yes: No Distress, Calm Cardiovascular: Yes: Regular Rate and Rhythm Respiratory: Yes: Regular Gastrointestinal: Yes: Normal Bowel Sounds, Soft Extremities: Yes: WNL Integumentary: Yes: WNL Neurological: Yes: Alert, Tremors (RUE) Labs: CBC, BMP 02/06/19 06:00 02/06/19 07:00 INR, PTT INR 1.15 (0.83-1.09) H 02/05/19 13:33 Microbiology 02/05/19 22:33 Sputum - Expectorated Sputum Culture - Preliminary NORMAL RESPIRATORY HEVER 02/05/19 15:45 Urine - Urine Clean Catch Urine Culture - Preliminary Proteus Species 02/05/19 18:45 Blood - Peripheral Venous Blood Culture - Preliminary NO GROWTH OBTAINED AFTER 24 HOURS, INCUBATION TO CONTINUE FOR 4 DAYS. 02/05/19 18:45 Blood - Peripheral Venous Blood Culture - Preliminary NO GROWTH OBTAINED AFTER 24 HOURS, INCUBATION TO CONTINUE FOR 4 DAYS. Problem List - Problems (1) Leukocytosis Code(s): D72.829 - ELEVATED WHITE BLOOD CELL COUNT, UNSPECIFIED (2) UTI (urinary tract infection) Code(s): N39.0 - URINARY TRACT INFECTION, SITE NOT SPECIFIED Qualifiers: Urinary tract infection type: site unspecified Hematuria presence: with hematuria Qualified Code(s): N39.0 - Urinary tract infection, site not specified; R31.9 - Hematuria, unspecified (3) Anemia Code(s): D64.9 - ANEMIA, UNSPECIFIED Qualifiers: Anemia type: other cause (4) CKD (chronic kidney disease), stage II Code(s): N18.2 - CHRONIC KIDNEY DISEASE, STAGE 2 (MILD) (5) Fever Code(s): R50.9 - FEVER, UNSPECIFIED (6) GERD (gastroesophageal reflux disease) Code(s): K21.9 - GASTRO-ESOPHAGEAL REFLUX DISEASE WITHOUT ESOPHAGITIS (7) HLD (hyperlipidemia) Code(s): E78.5 - HYPERLIPIDEMIA, UNSPECIFIED Qualifiers: Hyperlipidemia type: pure hypercholesterolemia Qualified Code(s): E78.00 - Pure hypercholesterolemia, unspecified; E78.0 - Pure hypercholesterolemia (8) HTN (hypertension) Code(s): I10 - ESSENTIAL (PRIMARY) HYPERTENSION Qualifiers: Hypertension type: essential hypertension Qualified Code(s): I10 - Essential (primary) hypertension (9) Parkinsonism Code(s): G20 - PARKINSON'S DISEASE Assessment/Plan 88 y.o. male with multiple medical problems present with reported hypoxia, noted to have low grade fever and leukocytosis. CT abd/pelvis with bladder wall thickening and U/A suggestive of UTI UTI Fever Resolved Leukocytosis DM CKD Anemia GERD dementia Parkinson's - pt with mild temperature elevations - US suggestive of cystitis - Urine culture isolate noted, Proteus --would continue antibiotics for now --follow temps, if stable will consider d/c antibiotics --pt currently stable
[2019-02-07] MEDS: DOCUSATE SODIUM 100 MG CAPSULE (FP) PO SCH (21:38)
[2019-02-07] MEDS: MIRTAZAPINE 15 MG TABLET (FP) PO SCH (21:39)
[2019-02-07] MEDS: ATORVASTATIN CA 20 MG TABLET (FP) PO SCH (21:39)
[2019-02-08] MEDS ORDERED: PIPERACILLIN/TAZOBACTAM 3.375 GM VIAL IVPB ONE ×3 (01:04→18:18)
[2019-02-08] MEDS ORDERED: DEXTROSE 5%-WATER - 50 ML IVPB ONE ×3 (01:05→18:18)
[2019-02-08] MEDS: PIPERACILLIN/TAZOB 3.375 GM 3.375 GM in DEXTROSE 5%-WATER - 50 ML IVPB SCH ×3 (02:39→18:21)
[2019-02-08] MEDS: CARBIDOPA/LEVODOPA 25/100 TABLET (FP) PO SCH ×3 (06:08→21:36)
[2019-02-08] MEDS: METOCLOPRAMIDE HCL 10 MG TABLET (FP) PO SCH ×3 (06:08→16:34)
[2019-02-08] MEDS: INSULIN SLIDING SCALE (NOVOLOG) 1 VIAL SQ SCH ×4 (06:12→21:46)
[2019-02-08] MEDS: ALBUTEROL SO4 2.5/IPRATROPIUM 0.5 INH SOL 3 ML VIAL.NEB. NEB SCH ×4 (07:46→20:58)
[2019-02-08] MEDS: TAMSULOSIN HCL 0.4 MG CAP PO SCH (08:29)
[2019-02-08] MEDS: CYANOCOBALAMIN (VITAMIN B-12) 100 MCG TABLET PO SCH (10:29)
[2019-02-08] MEDS: MULTIVITAMINS (DAILY MVI) TABLET (FP) PO SCH (10:29)
[2019-02-08] MEDS: PANTOPRAZOLE 40 MG TABLET (FP) PO SCH (10:30)
[2019-02-08] MEDS: LISINOPRIL 5 MG TABLET (FP) PO SCH (10:30)
[2019-02-08] MEDS: ASPIRIN 81 MG CHEWABLE TABLETS PO SCH (10:30)
[2019-02-08] MEDS: CITALOPRAM HYDROBROMIDE 10 MG TABLET (FP) PO SCH (10:34)
[2019-02-08] MEDS: TIMOLOL 0.5% OPHTHALMIC SOL 5 ML BOTTLE OD SCH ×2 (10:34→21:37)
[2019-02-08] MEDS ORDERED: PT OWN MED DRAWER 7, Y5N ONE ×2 (10:37→21:34)
[2019-02-08] MEDS: ZINC OXIDE 20% TOPICAL OINTMENT 30 GM TUBE TP SCH ×2 (10:38→21:38)
--- NOTE | 2019-02-08 10:54 | PN ---
Progress Note (short form) - Note Progress Note: pt seen/ examined chart reviewed awake/ comfortable Vital Signs Temp 97.8 F 02/08/19 06:00 Pulse 79 02/08/19 06:00 Resp 18 02/08/19 06:00 BP 151/89 02/08/19 06:00 Pulse Ox 95 02/07/19 21:00 Intake & Output 02/07/19 02/07/19 02/08/19 11:59 23:59 11:59 Intake Total 275 475 Balance 275 475 Intake: IVPB 50 100 Oral 225 375 Other: Voiding Method Incontinent Incontinent Incontinent # Unmeasured Voids Void 2 2 2 Bowel Movement No No Active Medications Albuterol/Ipratropium (Duoneb -) 1 amp NEB RQID [facility] Last Admin: 02/08/19 07:46 Dose: 1 amp Aspirin (Asa -) 81 mg PO DAILY [facility] Last Admin: 02/08/19 10:30 Dose: 81 mg Atorvastatin Calcium (Lipitor -) 20 mg PO [facility] Last Admin: 02/07/19 21:39 Dose: 20 mg Carbidopa/Levodopa (Sinemet 25/100 -) 1 each PO TID [facility] Last Admin: 02/08/19 06:08 Dose: 1 each Citalopram Hydrobromide (Celexa -) 10 mg PO DAILY [facility] Last Admin: 02/08/19 10:34 Dose: 10 mg Cyanocobalamin (Vitamin B12 -) 100 mcg PO DAILY [facility] Last Admin: 02/08/19 10:29 Dose: 100 mcg Docusate Sodium (Colace -) 200 mg PO [facility] Last Admin: 02/07/19 21:38 Dose: 200 mg Piperacillin Sod/Tazobactam (Sod 3.375 gm/ Dextrose) 50 mls @ 100 mls/hr IVPB Q8H-IV [facility]; Protocol Last Admin: 02/08/19 10:29 Dose: 100 mls/hr Insulin Aspart (Novolog Vial Sliding Scale -) 1 vial SQ ACHS [facility]; Protocol Last Admin: 02/08/19 06:12 Dose: Not Given Lisinopril (Prinivil) 2.5 mg PO DAILY [facility] Last Admin: 02/08/19 10:30 Dose: 2.5 mg Metoclopramide HCl (Reglan -) 5 mg PO TIDAC [facility] Last Admin: 02/08/19 10:33 Dose: 5 mg Mirtazapine (Remeron -) 7.5 mg PO HS [facility] Last Admin: 02/07/19 21:39 Dose: 7.5 mg Multi-Ingredient Ointment (Zinc Oxide) 1 applic TP BID [facility] Last Admin: 02/08/19 10:38 Dose: 1 applic Multivitamins/Minerals/Vitamin C (Tab-A-Vit -) 1 tab PO DAILY [facility] Last Admin: 02/08/19 10:29 Dose: 1 tab Pantoprazole Sodium (Protonix -) 40 mg PO DAILY [facility] Last Admin: 02/08/19 10:30 Dose: 40 mg Tamsulosin HCl (Flomax -) 0.4 mg PO DAILY@0830 [facility] Last Admin: 02/08/19 08:29 Dose: 0.4 mg Timolol Maleate (Timoptic 0.5%) 1 drop OD BID [facility] Last Admin: 02/08/19 10:34 Dose: 1 drop CBC, BMP 02/06/19 06:00 02/06/19 07:00 Physical Exam S1 S2 RRR Lungs decreased No JVD Abd-soft, NT No edema Awake PLAN Rt lung pneumonia ? Acute hypoxic respiratory failure- better UTI -- on iv antibiotics -- nebs standing -- continue with meds -- ID and Pulm eval noted -- blood cultures negative and urine culture positive for proteus -- pt is DNR - will follow Problem List - Problems (1) Acute respiratory failure with hypoxia Code(s): J96.01 - ACUTE RESPIRATORY FAILURE WITH HYPOXIA (2) Leukocytosis Code(s): D72.829 - ELEVATED WHITE BLOOD CELL COUNT, UNSPECIFIED (3) Pneumonia Code(s): J18.9 - PNEUMONIA, UNSPECIFIED ORGANISM (4) Anemia Code(s): D64.9 - ANEMIA, UNSPECIFIED Qualifiers: Anemia type: other cause (5) CKD (chronic kidney disease), stage II Code(s): N18.2 - CHRONIC KIDNEY DISEASE, STAGE 2 (MILD)
--- NOTE | 2019-02-08 11:37 | PN ---
Progress Note, Physician History of Present Illness: more comfortable awake - Current Medication List Current Medications: Active Medications Albuterol/Ipratropium (Duoneb -) 1 amp NEB RQID [facility] Last Admin: 02/08/19 11:34 Dose: 1 amp Aspirin (Asa -) 81 mg PO DAILY [facility] Last Admin: 02/08/19 10:30 Dose: 81 mg Atorvastatin Calcium (Lipitor -) 20 mg PO HS [facility] Last Admin: 02/07/19 21:39 Dose: 20 mg Carbidopa/Levodopa (Sinemet 25/100 -) 1 each PO TID [facility] Last Admin: 02/08/19 06:08 Dose: 1 each Citalopram Hydrobromide (Celexa -) 10 mg PO DAILY [facility] Last Admin: 02/08/19 10:34 Dose: 10 mg Cyanocobalamin (Vitamin B12 -) 100 mcg PO DAILY [facility] Last Admin: 02/08/19 10:29 Dose: 100 mcg Docusate Sodium (Colace -) 200 mg PO [facility] Last Admin: 02/07/19 21:38 Dose: 200 mg Piperacillin Sod/Tazobactam (Sod 3.375 gm/ Dextrose) 50 mls @ 100 mls/hr IVPB Q8H-IV [facility]; Protocol Last Admin: 02/08/19 10:29 Dose: 100 mls/hr Insulin Aspart (Novolog Vial Sliding Scale -) 1 vial SQ ACHS [facility]; Protocol Last Admin: 02/08/19 06:12 Dose: Not Given Lisinopril (Prinivil) 2.5 mg PO DAILY [facility] Last Admin: 02/08/19 10:30 Dose: 2.5 mg Metoclopramide HCl (Reglan -) 5 mg PO TIDAC [facility] Last Admin: 02/08/19 10:33 Dose: 5 mg Mirtazapine (Remeron -) 7.5 mg PO [facility] Last Admin: 02/07/19 21:39 Dose: 7.5 mg Multi-Ingredient Ointment (Zinc Oxide) 1 applic TP BID [facility] Last Admin: 02/08/19 10:38 Dose: 1 applic Multivitamins/Minerals/Vitamin C (Tab-A-Vit -) 1 tab PO DAILY [facility] Last Admin: 02/08/19 10:29 Dose: 1 tab Pantoprazole Sodium (Protonix -) 40 mg PO DAILY [facility] Last Admin: 02/08/19 10:30 Dose: 40 mg Tamsulosin HCl (Flomax -) 0.4 mg PO DAILY@0830 [facility] Last Admin: 02/08/19 08:29 Dose: 0.4 mg Timolol Maleate (Timoptic 0.5%) 1 drop OD BID [facility] Last Admin: 02/08/19 10:34 Dose: 1 drop - Objective Vital Signs: Vital Signs Temperature 97.8 F 02/08/19 06:00 Pulse Rate 79 02/08/19 06:00 Respiratory Rate 18 02/08/19 06:00 Blood Pressure 151/89 02/08/19 06:00 O2 Sat by Pulse Oximetry (%) 95 02/07/19 21:00 Constitutional: Yes: No Distress, Calm Cardiovascular: Yes: S1, S2 Respiratory: Yes: Regular, Poor Air Entry, Rales, Other Gastrointestinal: Yes: Normal Bowel Sounds, Soft Musculoskeletal: Yes: WNL Extremities: Yes: WNL Neurological: Yes: Alert Labs: CBC, BMP 02/06/19 06:00 02/06/19 07:00 INR, PTT INR 1.15 (0.83-1.09) H 02/05/19 13:33 Assessment/Plan Problem List - Problems (1) Leukocytosis Code(s): D72.829 - ELEVATED WHITE BLOOD CELL COUNT, UNSPECIFIED (2) UTI (urinary tract infection) Code(s): N39.0 - URINARY TRACT INFECTION, SITE NOT SPECIFIED Qualifiers: Urinary tract infection type: site unspecified Hematuria presence: with hematuria Qualified Code(s): N39.0 - Urinary tract infection, site not specified; R31.9 - Hematuria, unspecified (3) Anemia Code(s): D64.9 - ANEMIA, UNSPECIFIED Qualifiers: Anemia type: other cause (4) CKD (chronic kidney disease), stage II Code(s): N18.2 - CHRONIC KIDNEY DISEASE, STAGE 2 (MILD) (5) Fever Code(s): R50.9 - FEVER, UNSPECIFIED (6) GERD (gastroesophageal reflux disease) Code(s): K21.9 - GASTRO-ESOPHAGEAL REFLUX DISEASE WITHOUT ESOPHAGITIS (7) HLD (hyperlipidemia) Code(s): E78.5 - HYPERLIPIDEMIA, UNSPECIFIED Qualifiers: Hyperlipidemia type: pure hypercholesterolemia Qualified Code(s): E78.00 - Pure hypercholesterolemia, unspecified; E78.0 - Pure hypercholesterolemia (8) HTN (hypertension) Code(s): I10 - ESSENTIAL (PRIMARY) HYPERTENSION Qualifiers: Hypertension type: essential hypertension Qualified Code(s): I10 - Essential (primary) hypertension (9) Parkinsonism Code(s): G20 - PARKINSON'S DISEASE Assessment/Plan 88 y.o. male with multiple medical problems present with reported hypoxia, noted to have low grade fever and leukocytosis. CT abd/pelvis with bladder wall thickening and U/A suggestive of UTI UTI Fever Resolved Leukocytosis DM CKD Anemia GERD dementia Parkinson's plan continue current abx await for sputum cx rest as per the team asp preca
--- NOTE | 2019-02-08 12:52 | PN ---
Progress Note, Physician History of Present Illness: PULMONARY AWAKE,NO DISTRESS,-SOB - Current Medication List Current Medications: Active Medications Albuterol/Ipratropium (Duoneb -) 1 amp NEB RQID [facility] Last Admin: 02/08/19 11:34 Dose: 1 amp Aspirin (Asa -) 81 mg PO DAILY [facility] Last Admin: 02/08/19 10:30 Dose: 81 mg Atorvastatin Calcium (Lipitor -) 20 mg PO HS [facility] Last Admin: 02/07/19 21:39 Dose: 20 mg Carbidopa/Levodopa (Sinemet 25/100 -) 1 each PO TID [facility] Last Admin: 02/08/19 06:08 Dose: 1 each Citalopram Hydrobromide (Celexa -) 10 mg PO DAILY [facility] Last Admin: 02/08/19 10:34 Dose: 10 mg Cyanocobalamin (Vitamin B12 -) 100 mcg PO DAILY [facility] Last Admin: 02/08/19 10:29 Dose: 100 mcg Docusate Sodium (Colace -) 200 mg PO [facility] Last Admin: 02/07/19 21:38 Dose: 200 mg Piperacillin Sod/Tazobactam (Sod 3.375 gm/ Dextrose) 50 mls @ 100 mls/hr IVPB Q8H-IV [facility]; Protocol Last Admin: 02/08/19 10:29 Dose: 100 mls/hr Insulin Aspart (Novolog Vial Sliding Scale -) 1 vial SQ ACHS [facility]; Protocol Last Admin: 02/08/19 12:01 Dose: Not Given Lisinopril (Prinivil) 2.5 mg PO DAILY [facility] Last Admin: 02/08/19 10:30 Dose: 2.5 mg Metoclopramide HCl (Reglan -) 5 mg PO TIDAC [facility] Last Admin: 02/08/19 10:33 Dose: 5 mg Mirtazapine (Remeron -) 7.5 mg PO HS [facility] Last Admin: 02/07/19 21:39 Dose: 7.5 mg Multi-Ingredient Ointment (Zinc Oxide) 1 applic TP BID [facility] Last Admin: 02/08/19 10:38 Dose: 1 applic Multivitamins/Minerals/Vitamin C (Tab-A-Vit -) 1 tab PO DAILY [facility] Last Admin: 02/08/19 10:29 Dose: 1 tab Pantoprazole Sodium (Protonix -) 40 mg PO DAILY [facility] Last Admin: 02/08/19 10:30 Dose: 40 mg Tamsulosin HCl (Flomax -) 0.4 mg PO DAILY@0830 [facility] Last Admin: 02/08/19 08:29 Dose: 0.4 mg Timolol Maleate (Timoptic 0.5%) 1 drop OD BID [facility] Last Admin: 02/08/19 10:34 Dose: 1 drop - Objective Vital Signs: Vital Signs Temperature 97.8 F 02/08/19 06:00 Pulse Rate 79 02/08/19 06:00 Respiratory Rate 18 02/08/19 06:00 Blood Pressure 151/89 02/08/19 06:00 O2 Sat by Pulse Oximetry (%) 95 02/07/19 21:00 Constitutional: Yes: Well Nourished, Calm Eyes: Yes: WNL HENT: Yes: WNL Neck: Yes: WNL Cardiovascular: Yes: Regular Rate and Rhythm, S1, S2 Respiratory: Yes: CTA Bilaterally Gastrointestinal: Yes: Normal Bowel Sounds, Soft Extremities: Yes: WNL Edema: No Labs: CBC, BMP 02/06/19 06:00 02/06/19 07:00 INR, PTT INR 1.15 (0.83-1.09) H 02/05/19 13:33 Assessment/Plan Problem List - Problems (1) Atelectasis Code(s): J98.11 - ATELECTASIS (2) CKD (chronic kidney disease), stage II Code(s): N18.2 - CHRONIC KIDNEY DISEASE, STAGE 2 (MILD) (3) Dementia Code(s): F03.90 - UNSPECIFIED DEMENTIA WITHOUT BEHAVIORAL DISTURBANCE Qualifiers: Dementia type: unspecified type (4) GERD (gastroesophageal reflux disease) Code(s): K21.9 - GASTRO-ESOPHAGEAL REFLUX DISEASE WITHOUT ESOPHAGITIS (5) HLD (hyperlipidemia) Code(s): E78.5 - HYPERLIPIDEMIA, UNSPECIFIED Qualifiers: Hyperlipidemia type: pure hypercholesterolemia Qualified Code(s): E78.00 - Pure hypercholesterolemia, unspecified; E78.0 - Pure hypercholesterolemia (6) HTN (hypertension) Code(s): I10 - ESSENTIAL (PRIMARY) HYPERTENSION Qualifiers: Hypertension type: essential hypertension Qualified Code(s): I10 - Essential (primary) hypertension (7) PUD (peptic ulcer disease) Code(s): K27.9 - PEPTIC ULC, SITE UNSP, UNSP AC OR CHR, W/O HEMOR OR PERF (8) Parkinsonism Code(s): G20 - PARKINSON'S DISEASE Assessment/Plan ABX as per ID No indication for systemic steroids BD TX PRN Aspiration precautions Supplemental O2 as needed DR SCOTT Problem List - Problems (1) Atelectasis Code(s): J98.11 - ATELECTASIS (2) CKD (chronic kidney disease), stage II Code(s): N18.2 - CHRONIC KIDNEY DISEASE, STAGE 2 (MILD) (3) Dementia Code(s): F03.90 - UNSPECIFIED DEMENTIA WITHOUT BEHAVIORAL DISTURBANCE Qualifiers: Dementia type: unspecified type (4) GERD (gastroesophageal reflux disease) Code(s): K21.9 - GASTRO-ESOPHAGEAL REFLUX DISEASE WITHOUT ESOPHAGITIS (5) HLD (hyperlipidemia) Code(s): E78.5 - HYPERLIPIDEMIA, UNSPECIFIED Qualifiers: Hyperlipidemia type: pure hypercholesterolemia Qualified Code(s): E78.00 - Pure hypercholesterolemia, unspecified; E78.0 - Pure hypercholesterolemia (6) HTN (hypertension) Code(s): I10 - ESSENTIAL (PRIMARY) HYPERTENSION Qualifiers: Hypertension type: essential hypertension Qualified Code(s): I10 - Essential (primary) hypertension (7) PUD (peptic ulcer disease) Code(s): K27.9 - PEPTIC ULC, SITE UNSP, UNSP AC OR CHR, W/O HEMOR OR PERF (8) Parkinsonism Code(s): G20 - PARKINSON'S DISEASE
[2019-02-08] MEDS ORDERED: INSULIN (NOVOLOG) ASPART 100 UNITS/ML 10ML VIAL ONE ×2 (16:33→21:45)
[2019-02-08] MEDS: MIRTAZAPINE 15 MG TABLET (FP) PO SCH (21:36)
[2019-02-08] MEDS: ATORVASTATIN CA 20 MG TABLET (FP) PO SCH (21:36)
[2019-02-08] MEDS: DOCUSATE SODIUM 100 MG CAPSULE (FP) PO SCH (21:37)
[2019-02-09] MEDS ORDERED: DEXTROSE 5%-WATER - 50 ML IVPB ONE ×3 (02:08→17:01)
[2019-02-09] MEDS ORDERED: PIPERACILLIN/TAZOBACTAM 3.375 GM VIAL IVPB ONE ×3 (02:08→17:01)
[2019-02-09] MEDS: PIPERACILLIN/TAZOB 3.375 GM 3.375 GM in DEXTROSE 5%-WATER - 50 ML IVPB SCH ×3 (02:13→17:05)
[2019-02-09] MEDS: METOCLOPRAMIDE HCL 10 MG TABLET (FP) PO SCH ×3 (06:23→16:30)
[2019-02-09] MEDS: CARBIDOPA/LEVODOPA 25/100 TABLET (FP) PO SCH ×3 (06:23→21:20)
[2019-02-09] MEDS: INSULIN SLIDING SCALE (NOVOLOG) 1 VIAL SQ SCH ×4 (06:24→21:25)
[2019-02-09] MEDS: ALBUTEROL SO4 2.5/IPRATROPIUM 0.5 INH SOL 3 ML VIAL.NEB. NEB SCH ×4 (08:46→21:10)
[2019-02-09] MEDS: TAMSULOSIN HCL 0.4 MG CAP PO SCH (09:30)
[2019-02-09] MEDS: CYANOCOBALAMIN (VITAMIN B-12) 100 MCG TABLET PO SCH (09:40)
[2019-02-09] MEDS: ASPIRIN 81 MG CHEWABLE TABLETS PO SCH (09:40)
[2019-02-09] MEDS: PANTOPRAZOLE 40 MG TABLET (FP) PO SCH (09:40)
[2019-02-09] MEDS: CITALOPRAM HYDROBROMIDE 10 MG TABLET (FP) PO SCH (09:41)
[2019-02-09] MEDS: LISINOPRIL 5 MG TABLET (FP) PO SCH (09:41)
[2019-02-09] MEDS: MULTIVITAMINS (DAILY MVI) TABLET (FP) PO SCH (09:41)
[2019-02-09] MEDS: TIMOLOL 0.5% OPHTHALMIC SOL 5 ML BOTTLE OD SCH ×2 (10:33→22:26)
[2019-02-09] MEDS: ZINC OXIDE 20% TOPICAL OINTMENT 30 GM TUBE TP SCH ×2 (10:33→22:27)
[2019-02-09] MEDS ORDERED: INSULIN (NOVOLOG) ASPART 100 UNITS/ML 10ML VIAL ONE ×3 (11:17→21:24)
--- NOTE | 2019-02-09 13:55 | PN ---
Progress Note (short form) - Note Progress Note: Events noted no distress No SOB or cough comfortable daughter at bedside Vital Signs - 24 hr 02/08/19 02/08/19 02/09/19 18:00 21:00 05:55 Temperature 98.7 F 99.0 F Pulse Rate 84 74 Respiratory 19 20 18 Rate Blood Pressure 129/70 102/55 L O2 Sat by Pulse 96 Oximetry (%) 02/09/19 02/09/19 02/09/19 08:35 09:00 14:00 Temperature 96.8 F L 97.9 F Pulse Rate 73 77 Respiratory 18 20 Rate Blood Pressure 141/70 113/54 L O2 Sat by Pulse 92 L Oximetry (%) Current Medications Generic Name Dose Route Start Last Admin Trade Name Freq PRN Reason Stop Dose Admin Albuterol/Ipratropium 1 amp 02/06/19 16:00 02/09/19 11:59 Duoneb - NEB 1 amp RQID [facility] Administration Aspirin 81 mg 02/06/19 10:00 02/09/19 09:40 Asa - PO 81 mg DAILY [facility] Administration Atorvastatin Calcium 20 mg 02/06/19 22:00 02/08/19 21:36 Lipitor - PO 20 mg HS [facility] Administration Carbidopa/Levodopa 1 each 02/06/19 06:00 02/09/19 13:42 Sinemet 25/100 - PO 1 each TID [facility] Administration Citalopram Hydrobromide 10 mg 02/06/19 10:00 02/09/19 09:41 Celexa - PO 10 mg DAILY [facility] Administration Cyanocobalamin 100 mcg 02/06/19 10:00 02/09/19 09:40 Vitamin B12 - PO 100 mcg DAILY [facility] Administration Docusate Sodium 200 mg 02/06/19 22:00 02/08/19 21:37 Colace - PO 200 mg HS [facility] Administration Piperacillin Sod/Tazobactam 50 mls @ 100 mls/hr 02/06/19 18:00 02/09/19 09:40 Sod 3.375 gm/ Dextrose IVPB 100 mls/hr Q8H-IV [facility] Administration Protocol Insulin Aspart 1 vial 02/05/19 22:00 02/09/19 16:38 Novolog Vial Sliding Scale - SQ 2 units ACHS [facility] Administration Protocol Lisinopril 2.5 mg 02/06/19 10:00 02/09/19 09:41 Prinivil PO 2.5 mg DAILY [facility] Administration Metoclopramide HCl 5 mg 02/06/19 07:00 02/09/19 16:30 Reglan - PO 5 mg TIDAC [facility] Administration Mirtazapine 7.5 mg 02/06/19 22:00 02/08/19 21:36 Remeron - PO 7.5 mg HS [facility] Administration Multi-Ingredient Ointment 1 applic 02/06/19 10:00 02/09/19 10:33 Zinc Oxide TP 1 applic BID [facility] Administration Multivitamins/Minerals/Vitamin C 1 tab 02/06/19 10:00 02/09/19 09:41 Tab-A-Vit - PO 1 tab DAILY [facility] Administration Pantoprazole Sodium 40 mg 02/06/19 10:00 02/09/19 09:40 Protonix - PO 40 mg DAILY [facility] Administration Tamsulosin HCl 0.4 mg 02/06/19 08:30 02/09/19 09:30 Flomax - PO 0.4 mg DAILY@0830 [facility] Administration Timolol Maleate 1 drop 02/06/19 10:00 02/09/19 10:33 Timoptic 0.5% OD 1 drop BID [facility] Administration Laboratory Results - last 24 hr 02/08/19 02/09/19 02/09/19 21:31 06:20 11:42 POC Glucometer 222 156 207 02/09/19 16:33 POC Glucometer 180 S1 S2 RRR Lungs decreased No JVD Abd-soft, NT No edema PLAN Rt lung pneumonia Acute hypoxic respiratory failure possible UTI -- on iv antibiotics-- per ID -- nebs standing -- continue with meds -- ID and Pulm eval noted -- blood cultures negative and urine culture positive for proteus -- pt is DNR -- spoke with daughter-- pt is clinically improving Problem List - Problems (1) Acute respiratory failure with hypoxia Code(s): J96.01 - ACUTE RESPIRATORY FAILURE WITH HYPOXIA (2) Leukocytosis Code(s): D72.829 - ELEVATED WHITE BLOOD CELL COUNT, UNSPECIFIED (3) Pneumonia Code(s): J18.9 - PNEUMONIA, UNSPECIFIED ORGANISM (4) Anemia Code(s): D64.9 - ANEMIA, UNSPECIFIED Qualifiers: Anemia type: other cause (5) CKD (chronic kidney disease), stage II Code(s): N18.2 - CHRONIC KIDNEY DISEASE, STAGE 2 (MILD)
--- NOTE | 2019-02-09 15:31 | PN ---
Progress Note, Physician History of Present Illness: pulmonary awake,comfortable,-resp distress - Current Medication List Current Medications: Active Medications Albuterol/Ipratropium (Duoneb -) 1 amp NEB RQID [facility] Last Admin: 02/09/19 11:59 Dose: 1 amp Aspirin (Asa -) 81 mg PO DAILY [facility] Last Admin: 02/09/19 09:40 Dose: 81 mg Atorvastatin Calcium (Lipitor -) 20 mg PO HS [facility] Last Admin: 02/08/19 21:36 Dose: 20 mg Carbidopa/Levodopa (Sinemet 25/100 -) 1 each PO TID [facility] Last Admin: 02/09/19 13:42 Dose: 1 each Citalopram Hydrobromide (Celexa -) 10 mg PO DAILY [facility] Last Admin: 02/09/19 09:41 Dose: 10 mg Cyanocobalamin (Vitamin B12 -) 100 mcg PO DAILY [facility] Last Admin: 02/09/19 09:40 Dose: 100 mcg Docusate Sodium (Colace -) 200 mg PO [facility] Last Admin: 02/08/19 21:37 Dose: 200 mg Piperacillin Sod/Tazobactam (Sod 3.375 gm/ Dextrose) 50 mls @ 100 mls/hr IVPB Q8H-IV [facility]; Protocol Last Admin: 02/09/19 09:40 Dose: 100 mls/hr Insulin Aspart (Novolog Vial Sliding Scale -) 1 vial SQ ACHS [facility]; Protocol Last Admin: 02/09/19 11:43 Dose: 4 units Lisinopril (Prinivil) 2.5 mg PO DAILY [facility] Last Admin: 02/09/19 09:41 Dose: 2.5 mg Metoclopramide HCl (Reglan -) 5 mg PO TIDAC [facility] Last Admin: 02/09/19 11:44 Dose: 5 mg Mirtazapine (Remeron -) 7.5 mg PO HS [facility] Last Admin: 02/08/19 21:36 Dose: 7.5 mg Multi-Ingredient Ointment (Zinc Oxide) 1 applic TP BID [facility] Last Admin: 02/09/19 10:33 Dose: 1 applic Multivitamins/Minerals/Vitamin C (Tab-A-Vit -) 1 tab PO DAILY [facility] Last Admin: 02/09/19 09:41 Dose: 1 tab Pantoprazole Sodium (Protonix -) 40 mg PO DAILY [facility] Last Admin: 02/09/19 09:40 Dose: 40 mg Tamsulosin HCl (Flomax -) 0.4 mg PO DAILY@0830 [facility] Last Admin: 02/09/19 09:30 Dose: 0.4 mg Timolol Maleate (Timoptic 0.5%) 1 drop OD BID [facility] Last Admin: 02/09/19 10:33 Dose: 1 drop - Objective Vital Signs: Vital Signs Temperature 97.9 F 02/09/19 14:00 Pulse Rate 77 02/09/19 14:00 Respiratory Rate 20 02/09/19 14:00 Blood Pressure 113/54 L 02/09/19 14:00 O2 Sat by Pulse Oximetry (%) 96 02/08/19 21:00 Constitutional: Yes: Well Nourished, Calm Eyes: Yes: WNL HENT: Yes: WNL Neck: Yes: WNL Cardiovascular: Yes: Regular Rate and Rhythm, S1, S2 Respiratory: Yes: Diminished Gastrointestinal: Yes: Normal Bowel Sounds, Soft Extremities: Yes: WNL Edema: No Labs: CBC, BMP 02/06/19 06:00 02/06/19 07:00 INR, PTT INR 1.15 (0.83-1.09) H 02/05/19 13:33 Assessment/Plan Problem List - Problems (1) Atelectasis Code(s): J98.11 - ATELECTASIS (2) CKD (chronic kidney disease), stage II Code(s): N18.2 - CHRONIC KIDNEY DISEASE, STAGE 2 (MILD) (3) Dementia Code(s): F03.90 - UNSPECIFIED DEMENTIA WITHOUT BEHAVIORAL DISTURBANCE Qualifiers: Dementia type: unspecified type (4) GERD (gastroesophageal reflux disease) Code(s): K21.9 - GASTRO-ESOPHAGEAL REFLUX DISEASE WITHOUT ESOPHAGITIS (5) HLD (hyperlipidemia) Code(s): E78.5 - HYPERLIPIDEMIA, UNSPECIFIED Qualifiers: Hyperlipidemia type: pure hypercholesterolemia Qualified Code(s): E78.00 - Pure hypercholesterolemia, unspecified; E78.0 - Pure hypercholesterolemia (6) HTN (hypertension) Code(s): I10 - ESSENTIAL (PRIMARY) HYPERTENSION Qualifiers: Hypertension type: essential hypertension Qualified Code(s): I10 - Essential (primary) hypertension (7) PUD (peptic ulcer disease) Code(s): K27.9 - PEPTIC ULC, SITE UNSP, UNSP AC OR CHR, W/O HEMOR OR PERF (8) Parkinsonism Code(s): G20 - PARKINSON'S DISEASE Assessment/Plan ABX as per ID No indication for systemic steroids BD TX PRN Aspiration precautions Supplemental O2 as needed DR SCOTT Problem List - Problems (1) Atelectasis Code(s): J98.11 - ATELECTASIS (2) CKD (chronic kidney disease), stage II Code(s): N18.2 - CHRONIC KIDNEY DISEASE, STAGE 2 (MILD) (3) Dementia Code(s): F03.90 - UNSPECIFIED DEMENTIA WITHOUT BEHAVIORAL DISTURBANCE Qualifiers: Dementia type: unspecified type (4) GERD (gastroesophageal reflux disease) Code(s): K21.9 - GASTRO-ESOPHAGEAL REFLUX DISEASE WITHOUT ESOPHAGITIS (5) HLD (hyperlipidemia) Code(s): E78.5 - HYPERLIPIDEMIA, UNSPECIFIED Qualifiers: Hyperlipidemia type: pure hypercholesterolemia Qualified Code(s): E78.00 - Pure hypercholesterolemia, unspecified; E78.0 - Pure hypercholesterolemia (6) HTN (hypertension) Code(s): I10 - ESSENTIAL (PRIMARY) HYPERTENSION Qualifiers: Hypertension type: essential hypertension Qualified Code(s): I10 - Essential (primary) hypertension (7) PUD (peptic ulcer disease) Code(s): K27.9 - PEPTIC ULC, SITE UNSP, UNSP AC OR CHR, W/O HEMOR OR PERF (8) Parkinsonism Code(s): G20 - PARKINSON'S DISEASE
[2019-02-09] MEDS: MIRTAZAPINE 15 MG TABLET (FP) PO SCH (21:19)
[2019-02-09] MEDS: ATORVASTATIN CA 20 MG TABLET (FP) PO SCH (21:20)
[2019-02-09] MEDS: DOCUSATE SODIUM 100 MG CAPSULE (FP) PO SCH (21:20)
[2019-02-10] MEDS ORDERED: PIPERACILLIN/TAZOBACTAM 3.375 GM VIAL IVPB ONE ×2 (00:26→10:28)
[2019-02-10] MEDS ORDERED: DEXTROSE 5%-WATER - 50 ML IVPB ONE ×2 (00:27→10:28)
[2019-02-10] MEDS: PIPERACILLIN/TAZOB 3.375 GM 3.375 GM in DEXTROSE 5%-WATER - 50 ML IVPB SCH ×2 (02:43→10:31)
[2019-02-10] MEDS: METOCLOPRAMIDE HCL 10 MG TABLET (FP) PO SCH ×3 (06:07→15:59)
[2019-02-10] MEDS: CARBIDOPA/LEVODOPA 25/100 TABLET (FP) PO SCH ×2 (06:07→14:43)
[2019-02-10] MEDS: INSULIN SLIDING SCALE (NOVOLOG) 1 VIAL SQ SCH ×3 (06:07→16:40)
[2019-02-10] MEDS: ALBUTEROL SO4 2.5/IPRATROPIUM 0.5 INH SOL 3 ML VIAL.NEB. NEB SCH ×3 (07:45→15:39)
[2019-02-10 08:02] LABS: BASO % 0.6 % (0-2.0); HEMATOCRIT 30.5 % (35.4-49); HEMOGLOBIN 10.4 GM/dL (11.7-16.9); LYMPH % 16.1 % (8-40); MCH 33.2 pg (25.7-33.7); MEAN CELL VOLUME 97.6 fl (80-96); MEAN PLT VOLUME 7.8 fl (7.5-11.1); MONO % 9.7 % (3.8-10.2); NEUT % 57.6 % (42.8-82.8); PLATELET COUNT 300 K/MM3 (134-434); RBC 3.13 M/mm3 (4.00-5.60); RDW 13.3 % (11.9-15.9); WHITE BLOOD COUNT 8.4 K/mm3 (4.0-10.0)
[2019-02-10 08:07] LABS: ALBUMIN 2.8 g/dl (3.4-5.0); ALK PHOS 41 U/L (45-117); ANION GAP 8 MMOL/L (8-16); BILIRUBIN,TOTAL 0.5 mg/dL (0.2-1); BLOOD UREA NITROGEN 25 mg/dL (7-18); CALCIUM 8.4 mg/dL (8.5-10.1); CHLORIDE 107 mmol/L (98-107); CO2 27 mmol/L (21-32); CREATININE 1.6 mg/dL (0.55-1.3); GLUCOSE,RANDOM 128 mg/dL (74-106); POTASSIUM 3.9 mmol/L (3.5-5.1); SGOT/AST 14 U/L (15-37); SGPT/ALT 6 U/L (13-61); SODIUM 142 mmol/L (136-145); TOT PROT 5.9 g/dl (6.4-8.2)
[2019-02-10] MEDS: TAMSULOSIN HCL 0.4 MG CAP PO SCH (08:16)
[2019-02-10] MEDS ORDERED: INSULIN (NOVOLOG) ASPART 100 UNITS/ML 10ML VIAL ONE (10:27)
[2019-02-10] MEDS ORDERED: PT OWN MED DRAWER 7, Y5N ONE (10:27)
[2019-02-10] MEDS: ZINC OXIDE 20% TOPICAL OINTMENT 30 GM TUBE TP SCH (10:30)
[2019-02-10] MEDS: MULTIVITAMINS (DAILY MVI) TABLET (FP) PO SCH (10:32)
[2019-02-10] MEDS: PANTOPRAZOLE 40 MG TABLET (FP) PO SCH (10:32)
[2019-02-10] MEDS: LISINOPRIL 5 MG TABLET (FP) PO SCH (10:32)
[2019-02-10] MEDS: ASPIRIN 81 MG CHEWABLE TABLETS PO SCH (10:32)
[2019-02-10] MEDS: CYANOCOBALAMIN (VITAMIN B-12) 100 MCG TABLET PO SCH (10:32)
[2019-02-10] MEDS: CITALOPRAM HYDROBROMIDE 10 MG TABLET (FP) PO SCH (10:32)
[2019-02-10] MEDS: TIMOLOL 0.5% OPHTHALMIC SOL 5 ML BOTTLE OD SCH (10:36)
--- NOTE | 2019-02-10 12:32 | DS ---
Physical Examination Vital Signs: Vital Signs Temperature 98.6 F 02/10/19 09:06 Pulse Rate 80 02/10/19 09:06 Respiratory Rate 20 02/10/19 09:06 Blood Pressure 106/60 02/10/19 09:06 O2 Sat by Pulse Oximetry (%) 94 L 02/09/19 20:24 Constitutional: Yes: No Distress, Calm Cardiovascular: Yes: Regular Rate and Rhythm Respiratory: Yes: CTA Bilaterally Gastrointestinal: Yes: Normal Bowel Sounds, Soft. No: Tenderness, Tenderness, Rebound Edema: No Labs: CBC, BMP 02/10/19 05:20 02/10/19 05:20 Discharge Summary Reason For Visit: UTI,LEUKOCYTOSIS Current Active Problems Acute respiratory failure with hypoxia (Acute) Atelectasis (Acute) Leukocytosis (Acute) Pneumonia (Acute) UTI (urinary tract infection) (Acute) Hospital Course: History-- - Admission Chief Complaint: Hypoxia History of Present Illness: This is a 88 y/o man from [facility] with a PMHx of Dementia, HTN, HLD, Diabetes Mellitus, GERD, Renal Insufficiency, PUD. Who presents to the ED for Hypoxia 83% at the assisted. Patient was found to be Hypoxic 92% on room air in the ED. Patient has Dementia unable to provide HPI. Patient's daughters were at bedside, reports that the patient gets frequent UTIs. ER course was noted for: (1) Chest Xray- no acute pathology (2) CTA- neg PE, R- Posterior basilar subpleural opacity atelectasis and or infiltrate (3) CTAP- no acute pathology Pt was evaluated by ID and Pulmonary Was on IV antibiotics and nebs, O2 Blood cultures negative urine cultures positive for proteus Pt is stable mental status improved Stable for dc to [facility] on PO Ceftin x 4 days more Condition: Stable - Instructions Disposition: LONG-TERM FACILITY - Home Medications Comprehensive Discharge Medication List: Ambulatory Orders Aspirin [ASA -] 81 mg PO DAILY 04/10/13 Metoclopramide HCl 5 mg PO TID 04/10/13 Omeprazole [Prilosec (RX)] 40 mg PO DAILY 04/10/13 Tamsulosin HCl 0.4 mg PO DAILY 04/10/13 metFORMIN HCL [Glucophage] 1,000 mg PO BID 04/10/13 Citalopram Hydrobromide [Celexa -] 10 mg PO DAILY 09/25/13 Lisinopril [Prinivil -] 2.5 mg PO DAILY 09/25/13 Ascorbate Calcium [Vitamin C] 500 mg PO DAILY 11/04/17 Cholecalciferol (Vitamin D3) [Vitamin D3 -] 1,000 unit PO DAILY 11/04/17 Cyanocobalamin [Vitamin B12 -] 100 mcg PO DAILY 11/04/17 Docusate Sodium [Colace] 200 mg PO HS 11/04/17 Insulin Aspart [Novolog Flexpen] 0 unit SQ TID 11/04/17 Methyl Salicylate/Menthol [Bengay Greaseless Cream] 0 gm TP DAILY 11/04/17 Mirtazapine 7.5 mg PO HS 11/04/17 Multivitamin [One Daily] 1 each PO DAILY 11/04/17 Simvastatin [Zocor -] 40 mg PO HS 11/04/17 Timolol 0.5% [Timoptic 0.5%] 1 drop OD BID 11/04/17 Zinc Oxide 20% Topical Oint 1 applic TP BID 11/04/17 Acetaminophen [Tylenol .Regular Strength -] 650 mg PO Q6H PRN tablet 11/07/17 Carbidopa/Levodopa 25/100 [Sinemet 25/100 -] 1 tab PO TID 02/05/19 Citalopram Hydrobromide [Celexa -] 10 mg PO DAILY 02/05/19 Insulin Glargine,Hum.rec.anlog [Lantus] 12 units SQ DAILY 02/05/19 Metformin HCl [Glucophage] 1 tab PO BID 02/05/19 Phenazopyridine HCl 100 mg PO BID 02/05/19
--- NOTE | 2019-02-10 13:48 | PN ---
Progress Note, Physician - Current Medication List Current Medications: Active Medications Albuterol/Ipratropium (Duoneb -) 1 amp NEB RQID [facility] Last Admin: 02/10/19 11:52 Dose: Not Given Aspirin (Asa -) 81 mg PO DAILY [facility] Last Admin: 02/10/19 10:32 Dose: 81 mg Atorvastatin Calcium (Lipitor -) 20 mg PO HS [facility] Last Admin: 02/09/19 21:20 Dose: 20 mg Carbidopa/Levodopa (Sinemet 25/100 -) 1 each PO TID [facility] Last Admin: 02/10/19 06:07 Dose: 1 each Citalopram Hydrobromide (Celexa -) 10 mg PO DAILY [facility] Last Admin: 02/10/19 10:32 Dose: 10 mg Cyanocobalamin (Vitamin B12 -) 100 mcg PO DAILY [facility] Last Admin: 02/10/19 10:32 Dose: 100 mcg Docusate Sodium (Colace -) 200 mg PO [facility] Last Admin: 02/09/19 21:20 Dose: 200 mg Piperacillin Sod/Tazobactam (Sod 3.375 gm/ Dextrose) 50 mls @ 100 mls/hr IVPB Q8H-IV [facility]; Protocol Last Admin: 02/10/19 10:31 Dose: 100 mls/hr Insulin Aspart (Novolog Vial Sliding Scale -) 1 vial SQ ACHS [facility]; Protocol Last Admin: 02/10/19 11:43 Dose: 8 units Lisinopril (Prinivil) 2.5 mg PO DAILY [facility] Last Admin: 02/10/19 10:32 Dose: 2.5 mg Metoclopramide HCl (Reglan -) 5 mg PO TIDAC [facility] Last Admin: 02/10/19 10:33 Dose: 5 mg Mirtazapine (Remeron -) 7.5 mg PO HS [facility] Last Admin: 02/09/19 21:19 Dose: 7.5 mg Multi-Ingredient Ointment (Zinc Oxide) 1 applic TP BID [facility] Last Admin: 02/10/19 10:30 Dose: 1 applic Multivitamins/Minerals/Vitamin C (Tab-A-Vit -) 1 tab PO DAILY [facility] Last Admin: 02/10/19 10:32 Dose: 1 tab Pantoprazole Sodium (Protonix -) 40 mg PO DAILY [facility] Last Admin: 02/10/19 10:32 Dose: 40 mg Tamsulosin HCl (Flomax -) 0.4 mg PO DAILY@0830 [facility] Last Admin: 02/10/19 08:16 Dose: 0.4 mg Timolol Maleate (Timoptic 0.5%) 1 drop OD BID [facility] Last Admin: 02/10/19 10:36 Dose: 1 drop - Objective Vital Signs: Vital Signs Temperature 98.6 F 02/10/19 09:06 Pulse Rate 80 02/10/19 09:06 Respiratory Rate 20 02/10/19 09:06 Blood Pressure 106/60 02/10/19 09:06 O2 Sat by Pulse Oximetry (%) 94 L 02/09/19 20:24 Labs: CBC, BMP 02/10/19 05:20 02/10/19 05:20 INR, PTT INR 1.15 (0.83-1.09) H 02/05/19 13:33
[2019-02-10 16:57] VITALS: BP 107/67; PULSE 80; TEMP 97.7
== END 2019-02-10 16:39 | DRG 177 ==
LOC: JER 12:20 → JERBED 18:32 → J6S 21:53
PROVIDERS: ADMIT Internal Medicine; ATTEND Internal Medicine
DX: J69.0 Pneumonitis due to inhalation of food and vomit (principal); J96.01 Acute respiratory failure with hypoxia; N39.0 Urinary tract infection, site not specified; J98.11 Atelectasis; E78.5 Hyperlipidemia, unspecified; K21.9 Gastro-esophageal reflux disease without esophagitis; D72.829 Elevated white blood cell count, unspecified; F03.90 Unspecified dementia, unspecified severity, without behavioral disturbance, psychotic disturbance, mood disturbance, and anxiety; I12.9 Hypertensive chronic kidney disease with stage 1 through stage 4 chronic kidney disease, or unspecified chronic kidney disease; E11.22 Type 2 diabetes mellitus with diabetic chronic kidney disease; N18.2 Chronic kidney disease, stage 2 (mild); D64.9 Anemia, unspecified; G20 Parkinson's disease; R50.9 Fever, unspecified; Z87.11 Personal history of peptic ulcer disease; Z96.653 Presence of artificial knee joint, bilateral; Z96.641 Presence of right artificial hip joint
CPT/HCPCS: 36415; 71045-TC-FY; 71275-TC; 74177-TC; 80048; 80053; 81003; 82962; 83605; 83735; 83880; 84484; 85025; 85610; 87040; 87070; 87086; 87186; 87205; 93005; 93010; 94640; 99283-25; G0480

== ENCOUNTER 2019-02-17 22:16 | Inpatient (IN) | payer OTHER ==
--- NOTE | 2019-02-17 22:47 | PDOC ---
History of Present Illness - General Chief Complaint: SIRS, Suspected/Possible Stated Complaint: Fever Time Seen by Provider: 02/17/19 22:47 - History of Present Illness Initial Comments: 02/18/19 00:37 The patient is an 88 year old male with a history of HTN, HLD, DM, CAD, Parkinson's, Dementia, CKD who presents for evaluation of fever and concern for menigitis. Per the patient's primary care provider Dr. Sethi, the patient has a history of UTIs and returned to the [place] after an admission and had been placed on zosyn and levquin for a presumed aspiration pneumonia over the past few days. However, the patient began to spike fevers to 102 today and noted worsening neck ridgity than normal prompting the patient's presentation for concern of a possible meningitis. The patient is non-verbal at baseline. ROS is unobtainable due to the patient's dementia. Past History - Past Medical History Allergies/Adverse Reactions: Allergies Allergy/AdvReac Type Severity Reaction Status Date / Time No Known Allergies Allergy Verified 09/25/13 19:48 Home Medications: Ambulatory Orders Aspirin [ASA -] 81 mg PO DAILY 04/10/13 Metoclopramide HCl 5 mg PO TID 04/10/13 Omeprazole [Prilosec (RX)] 40 mg PO DAILY 04/10/13 Tamsulosin HCl 0.4 mg PO DAILY 04/10/13 metFORMIN HCL [Glucophage] 1,000 mg PO BID 04/10/13 Citalopram Hydrobromide [Celexa -] 10 mg PO DAILY 09/25/13 Lisinopril [Prinivil -] 2.5 mg PO DAILY 09/25/13 Ascorbate Calcium [Vitamin C] 500 mg PO DAILY 11/04/17 Cholecalciferol (Vitamin D3) [Vitamin D3 -] 1,000 unit PO DAILY 11/04/17 Cyanocobalamin [Vitamin B12 -] 100 mcg PO DAILY 11/04/17 Docusate Sodium [Colace] 200 mg PO HS 11/04/17 Insulin Aspart [Novolog Flexpen] 0 unit SQ TID 11/04/17 Mirtazapine 7.5 mg PO HS 11/04/17 Multivitamin [One Daily] 1 each PO DAILY 11/04/17 Simvastatin [Zocor -] 40 mg PO HS 11/04/17 Timolol 0.5% [Timoptic 0.5%] 1 drop OD BID 11/04/17 Zinc Oxide 20% Topical Oint 1 applic TP BID 11/04/17 Acetaminophen [Tylenol .Regular Strength -] 650 mg PO Q6H PRN tablet 11/07/17 Carbidopa/Levodopa 25/100 [Sinemet 25/100 -] 1 tab PO TID 02/05/19 Citalopram Hydrobromide [Celexa -] 10 mg PO DAILY 02/05/19 Insulin Glargine,Hum.rec.anlog [Lantus] 12 units SQ DAILY 02/05/19 Metformin HCl [Glucophage] 1 tab PO BID 02/05/19 Phenazopyridine HCl 100 mg PO BID 02/05/19 Albuterol 2.5/Ipratropium 0.5 [Duoneb -] 1 amp NEB RQID #30 amp 02/10/19 Cefuroxime Axetil [Ceftin -] 500 mg PO Q12H #8 tablet 02/10/19 Arginine/Ascorbate Sod/Dominique AC [Arginaid Powder] 1 each PO DAILY 02/18/19 Insulin Glargine,Hum.rec.anlog [Lantus Solostar PEN (NF)] 0 units SQ HS Levofloxacin [Levaquin] 500 mg PO DAILY 02/18/19 Omeprazole Magnesium [Prilosec Otc] 40 mg PO DAILY 02/18/19 Tuberculin,Purif.prot.deriv. [Aplisol] 5 tub ID DAILY 02/18/19 Anemia: No Asthma: No Cancer: No Cardiac Disorders: Yes CVA: No COPD: No CHF: No Dementia: Yes Diabetes: Yes GI Disorders: No Disorders: No HTN: Yes Hypercholesterolemia: Yes Kidney Stones: (chronic kidney disease) Liver Disease: No Seizures: No Thyroid Disease: No - Surgical History Orthopedic Surgery: Yes (ORIF RIGHT HIP 2011,LA KNEE REPLACEMENT) - Immunization History Immunization Up to Date: Yes - Suicide/Smoking/Psychosocial Hx Smoking Status: No Smoking History: Never smoked Have you smoked in the past 12 months: No Number of Cigarettes Smoked Daily: 0 Information on smoking cessation initiated: No Hx Alcohol Use: No Drug/Substance Use Hx: No Substance Use Type: None Hx Substance Use Treatment: No Review of Systems - Review of Systems Able to Perform ROS?: No (Dementia) *Physical Exam - Vital Signs Last Vital Signs Temp Pulse Resp BP Pulse Ox 103.4 F H 108 H 22 H 116/62 98 02/17/19 22:31 02/17/19 22:31 02/17/19 22:31 02/17/19 22:31 02/17/19 22:31 - Physical Exam Comments: 02/18/19 00:43 General Appearance: Nourished. No Apparent Distress HEENT: EOMI, GHADA. No Pharyngeal Erythema, Tonsillar Exudate, Tonsillar Erythema Neck: Ridged neck noted on exam. No Cervical Lymphadenopathy Respiratory/Chest: Lungs Clear, Normal Breath Sounds. No Crackles, Rales, Rhonchi, Wheezing Cardiovascular: Regular Rhythm, Regular Rate. No Murmur, Gallops, Rubs Gastrointestinal/Abdominal: Normal Bowel Sounds, Soft. No Guarding, Rebound, Tenderness Musculoskeletal: No CVA Tenderness Extremity: Normal Capillary Refill Integumentary: Normal Color, Dry, Warm Neurologic: Ridgity noted on exam. At baseline mentally. Procedures - Lumbar Puncture Indication: Meningitis CT Scan: Yes Betadine Prep: Yes Position: Right lateral decubitus Site: L4-L51 Local Anesthesia: 1% Lidocaine with epi Volume(ml): 4 Lumbar Puncture Kit: Adult Complications: Dry Tap ED Treatment Course - LABORATORY CBC & Chemistry Diagram: 02/17/19 23:10 02/17/19 23:10 Medical Decision Making - Medical Decision Making 02/18/19 00:45 The patient is an 88 year old male with a history of HTN, HLD, DM, CAD, Parkinson's, Dementia, CKD who presents for evaluation of fever and concern for meningitis. Differential includes but is not limited to: Sepsis, UTI, Pneumonia , Meningitis, Infectious, Metabolic Derangement. Given the patient's history and physical exam, we will obtain a cbc, cmp, lactate, troponin, blood cultures , ua, urine cultures, head CT, coags, chest plain film to evaluate further. We will perform an LP after lab results and head CT results are in. We will treat with iv fluids and tylenol in the meantime and continue to monitor and reassess. 02/18/19 05:36 CBC demonstrates an elevated wbc to 13. CMP demonstrates a sodium or 147, Creatinine is elevated to 2.0. Lactate is elevated to 2.8. UA demonstrates positive nitrites, positive leuk esterase, elevated wbc although the patient may be chronically colonized. We made multiple attempts for a LP which were unsuccessful and the patient will likely require IR guided LP. In the meantime we will cover the patient with vanc and meropenem. We discussed the case with the admitting team who accepted the patient for admission. *DC/Admit/Observation/Transfer Diagnosis at time of Disposition: Sepsis Qualifiers: Sepsis type: sepsis due to unspecified organism Qualified Code(s): A41.9 - Sepsis, unspecified organism - Discharge Dispostion Condition at time of disposition: Stable Decision to Admit order: Yes - Referrals - Patient Instructions - Post Discharge Activity
[2019-02-17] MEDS ORDERED: ACETAMINOPHEN 1000 MG/100 ML VIAL (NON FORMULARY) IVPB ONE (22:58)
[2019-02-17] MEDS ORDERED: SODIUM CHLORIDE 1,000 ML IV STA (22:58)
[2019-02-17] MEDS ORDERED: ACETAMINOPHEN INJECTION 100 ML IVPB ONE (23:21)
[2019-02-17 23:31] LABS: BASO % 0.6 % (0-2.0); EOS % 1.7 % (0-4.5); HEMATOCRIT 34.3 % (35.4-49); LYMPH % 10.8 % (8-40); MCH 32.4 pg (25.7-33.7); MCHC 32.1 g/dl (32.0-35.9); MEAN CELL VOLUME 100.9 fl (80-96); MEAN PLT VOLUME 8.1 fl (7.5-11.1); MONO % 8.5 % (3.8-10.2); NEUT % 78.4 % (42.8-82.8); PLATELET COUNT 372 K/MM3 (134-434); RDW 13.9 % (11.9-15.9); WHITE BLOOD COUNT 13.6 K/mm3 (4.0-10.0)
[2019-02-17 23:43] LABS: INR 1.22 (0.83-1.09); PROTHROMBIN TIME (PATIENT) 14.4 SEC (9.7-13.0)
[2019-02-17 23:46] LABS: ACTIVATED PTT 29.4 SECONDS (25.2-36.5)
[2019-02-18] LABS: BILIRUBIN,TOTAL 0.4 mg/dL (0.2-1); CALCIUM 9.1 mg/dL (8.5-10.1); POTASSIUM 4.6 mmol/L (3.5-5.1); TOT PROT 7.2 g/dl (6.4-8.2)
[2019-02-18 01:35] LABS: EPI CELLS 0.3 /HPF (0-5/HPF); PH,URINE 5.5 (5.0-8.0); URINE APPEARANCE TURBID; URINE BACTERIA 2.5 /hpf (NEGATIVE); URINE BILIRUBIN 1+ (NEGATIVE); URINE CASTS 3 /lpf (0-8); URINE COLOR DK YELLOW; URINE GLUCOSE (UA) NEGATIVE (NEGATIVE); URINE KETONE NEGATIVE (NEGATIVE); URINE LEUK ESTERASE 3+ (NEGATIVE); URINE NITRITE POSITIVE (NEGATIVE); URINE PROTEIN 2+ (NEGATIVE); URINE WBC 533 /hpf (0-5)
[2019-02-18 02:00] LABS: URINE RBC 115 /hpf (0-4); YEAST 0 (NEGATIVE)
[2019-02-18] MEDS ORDERED: VANCOMYCIN 1,000 MG in DEXTROSE 5%-WATER - 250 ML IVPB ONE (05:09)
[2019-02-18] MEDS ORDERED: MEROPENEM 1 GM in DEXTROSE 5%-WATER 100 ML IVPB ONE (05:09)
[2019-02-18] MEDS ORDERED: VANCOMYCIN 1 GRAM (PRE-DOCKED) 1,000 MG/250 ML BAG IVPB ONE (05:30)
[2019-02-18] MEDS ORDERED: MEROPENEM 1 GM VIAL (RESTRICTED TO ID) IVPB ONE (05:30)
--- NOTE | 2019-02-18 06:13 | HP ---
CHIEF COMPLAINT: high fever PCP: Corona Castorena MD History obtained from ER staff as patient does not provide history HISTORY OF PRESENT ILLNESS: 88 year old man, halfway resident, w/ multiple coomorbidities, recurrent UTIs, recently treated with pip/tazo and levaquin for aspiration pneumonia. He was sent to ER for high fevers in [place]. ER course was notable for: (1) meropenem (2) vancomycin (3) cxr Recent Travel: no PAST MEDICAL HISTORY: HTN, HLD, Parkinsons, Diabetes Mellitus, GERD, Renal Insufficiency, PUD, multiple UTIs in past - grew Proteus Mirabilis in urine cx PAST SURGICAL HISTORY: Joint Replacement (right hip, bilateral knee) From [facility]. No smoking. No alcohol. No illicit drug Social History: From [facility]. No smoking. No alcohol. No illicit drugs. Family History: unknown Allergies No Known Allergies Allergy (Verified 09/25/13 19:48) HOME MEDICATIONS: Home Medications Medication Instructions Recorded Aspirin [ASA -] 81 mg PO DAILY 04/10/13 Metoclopramide HCl 5 mg PO TID 04/10/13 Omeprazole [Prilosec (RX)] 40 mg PO DAILY 04/10/13 Tamsulosin HCl 0.4 mg PO DAILY 04/10/13 metFORMIN HCL [Glucophage] 1,000 mg PO BID 04/10/13 Citalopram Hydrobromide [Celexa -] 10 mg PO DAILY 09/25/13 Lisinopril [Prinivil -] 2.5 mg PO DAILY 09/25/13 Ascorbate Calcium [Vitamin C] 500 mg PO DAILY 11/04/17 Cholecalciferol (Vitamin D3) 1,000 unit PO DAILY 11/04/17 [Vitamin D3 -] Cyanocobalamin [Vitamin B12 -] 100 mcg PO DAILY 11/04/17 Docusate Sodium [Colace] 200 mg PO HS 11/04/17 Insulin Aspart [Novolog Flexpen] 0 unit SQ TID 11/04/17 Mirtazapine 7.5 mg PO HS 11/04/17 Multivitamin [One Daily] 1 each PO DAILY 11/04/17 Simvastatin [Zocor -] 40 mg PO HS 11/04/17 Timolol 0.5% [Timoptic 0.5%] 1 drop OD BID 11/04/17 Zinc Oxide 20% Topical Oint 1 applic TP BID 11/04/17 Acetaminophen [Tylenol .Regular 650 mg PO Q6H PRN tablet 11/07/17 Strength -] Carbidopa/Levodopa [Sinemet 1 tab PO TID 02/05/19 -] Citalopram Hydrobromide [Celexa -] 10 mg PO DAILY 02/05/19 Insulin Glargine,Hum.rec.anlog 12 units SQ DAILY 02/05/19 [Lantus] Metformin HCl [Glucophage] 1 tab PO BID 02/05/19 Phenazopyridine HCl 100 mg PO BID 02/05/19 Albuterol 2.5/Ipratropium 0.5 1 amp NEB RQID #30 amp 02/10/19 [Duoneb -] Cefuroxime Axetil [Ceftin -] 500 mg PO Q12H #8 tablet 02/10/19 Arginine/Ascorbate Sod/Dominique AC 1 each PO DAILY 02/18/19 [Arginaid Powder] Insulin Glargine,Hum.rec.anlog 0 units SQ HS 02/18/19 [Lantus Solostar PEN (NF)] Levofloxacin [Levaquin] 500 mg PO DAILY 02/18/19 Omeprazole Magnesium [Prilosec Otc] 40 mg PO DAILY 02/18/19 Tuberculin,Purif.prot.deriv. 5 tub ID DAILY 02/18/19 [Aplisol] REVIEW OF SYSTEMS -unable to obtain as patient is nonverbal PHYSICAL EXAMINATION Vital Signs - 24 hr 02/17/19 22:31 Temperature 103.4 F H Pulse Rate 108 H Respiratory 22 H Rate Blood Pressure 116/62 O2 Sat by Pulse 98 Oximetry (%) GENERAL: Awake, alert, not cooperative, nontoxic appearing HEAD: Normal with no signs of trauma EYES: Pupils equal, round and reactive to light, extraocular movements intact, sclera anicteric, conjunctiva clear. No lid lag. EARS, NOSE, THROAT: Ears normal, nares patent, oropharynx clear without exudates. Moist mucous membranes. NECK: Normal range of motion, supple without lymphadenopathy, JVD, or masses. LUNGS: Breath sounds equal, clear to auscultation bilaterally. No wheezes, and no crackles. No accessory muscle use. HEART: Regular rate and rhythm, normal S1 and S2 without murmur, rub or gallop. ABDOMEN: Soft, nontender, not distended, normoactive bowel sounds, no guarding, no rebound, no masses. MUSCULOSKELETAL: Normal range of motion at all joints. No bony deformities or tenderness. No CVA tenderness. UPPER EXTREMITIES:stiff extremities, LOWER EXTREMITIES: 2+ pulses, warm, well-perfused. No calf tenderness. No peripheral edema, stiff NEUROLOGICAL: unble to obtain neuro exam, baseline parkinsonism PSYCHIATRIC: unCooperative, baseline dementia SKIN: Warm, dry, normal turgor, no rashes or lesions noted, normal capillary refill. Laboratory Results - last 24 hr 02/17/19 02/17/19 02/17/19 23:10 23:10 23:10 WBC 13.6 H RBC 3.40 L Hgb 11.0 L Hct 34.3 L MCV 100.9 H MCH 32.4 MCHC 32.1 RDW 13.9 Plt Count 372 D MPV 8.1 Absolute Neuts (auto) 10.6 H Neutrophils % 78.4 D Lymphocytes % 10.8 D Monocytes % 8.5 Eosinophils % 1.7 D Basophils % 0.6 Nucleated RBC % 0 PT with INR 14.40 H INR 1.22 H PTT (Actin FS) 29.4 Sodium 147 H Potassium 4.6 Chloride 115 H Carbon Dioxide 26 Anion Gap 6 L BUN 50 H Creatinine 2.0 H Est GFR (CKD-EPI)AfAm 34.02 Est GFR (CKD-EPI)NonAf 29.35 Random Glucose 248 H Lactic Acid Calcium 9.1 Total Bilirubin 0.4 AST 15 ALT 10 L Alkaline Phosphatase 53 Troponin I Total Protein 7.2 Albumin 3.0 L Urine Color Urine Appearance Urine pH Ur Specific [place] Urine Protein Urine Glucose (UA) Urine Ketones Urine Blood Urine Nitrite Urine Bilirubin Urine Urobilinogen Ur Leukocyte Esterase Urine WBC (Auto) Urine RBC (Auto) Urine Casts (Auto) U Epithel Cells (Auto) Urine Bacteria (Auto) Urine Yeast (Auto) 02/17/19 02/17/19 02/18/19 23:10 23:10 01:20 WBC RBC Hgb Hct MCV MCH MCHC RDW Plt Count MPV Absolute Neuts (auto) Neutrophils % Lymphocytes % Monocytes % Eosinophils % Basophils % Nucleated RBC % PT with INR INR PTT (Actin FS) Sodium Potassium Chloride Carbon Dioxide Anion Gap BUN Creatinine Est GFR (CKD-EPI)AfAm Est GFR (CKD-EPI)NonAf Random Glucose Lactic Acid 2.8 H* Calcium Total Bilirubin AST ALT Alkaline Phosphatase Troponin I < 0.02 Total Protein Albumin Urine Color Dk yellow Urine Appearance Turbid Urine pH 5.5 D Ur Specific [place] 1.021 Urine Protein 2+ H Urine Glucose (UA) Negative Urine Ketones Negative Urine Blood 3+ H Urine Nitrite Positive H Urine Bilirubin 1+ H Urine Urobilinogen 1.0 Ur Leukocyte Esterase 3+ H Urine WBC (Auto) 533 Urine RBC (Auto) 115 Urine Casts (Auto) 3 U Epithel Cells (Auto) 0.3 Urine Bacteria (Auto) 2.5 Urine Yeast (Auto) 0 02/18/19 02:45 WBC RBC Hgb Hct MCV MCH MCHC RDW Plt Count MPV Absolute Neuts (auto) Neutrophils % Lymphocytes % Monocytes % Eosinophils % Basophils % Nucleated RBC % PT with INR INR PTT (Actin FS) Sodium Potassium Chloride Carbon Dioxide Anion Gap BUN Creatinine Est GFR (CKD-EPI)AfAm Est GFR (CKD-EPI)NonAf Random Glucose Lactic Acid 1.1 Calcium Total Bilirubin AST ALT Alkaline Phosphatase Troponin I Total Protein Albumin Urine Color Urine Appearance Urine pH Ur Specific [place] Urine Protein Urine Glucose (UA) Urine Ketones Urine Blood Urine Nitrite Urine Bilirubin Urine Urobilinogen Ur Leukocyte Esterase Urine WBC (Auto) Urine RBC (Auto) Urine Casts (Auto) U Epithel Cells (Auto) Urine Bacteria (Auto) Urine Yeast (Auto) Head CT, cxr reviewed by me ASSESSMENT/PLAN: #Sepsis secondary to UTI- gross pyuria, LE+ on UA, urin culture, blood cultures sent. Prostatitis? Pyelo? Fever is presumed to be developed on zosyn, levaquin so will broaden to meropenem and vancomcyin. Leukocytosis, lactic acidosis+ which is now improved on repeat draw -blood cultures -urine culture -id consult -iv fluids -meropenem -vancomcyin -renal, prostate u/s -ekg #EVAN vs ckd -renal u/s -i/o -daily weights -avoid nephrotoxins #Diabetes Mellitus -novolog sliding scale -lantus 12 units qhs #HTN- controlled -lisinopril #HLD -lipitor #Parkinsons -carbidopa/levadopa #GERD/PUD -protonix #DVT ppx- heparin sc Advance directives- was DNR on previous admission- to be verified with halfway/documentation Visit type - Emergency Visit Emergency Visit: Yes ED Registration Date: 02/18/19 Care time: The patient presented to the Emergency Department on the above date and was hospitalized for further evaluation of their emergent condition. - New Patient This patient is new to me today: Yes Date on this admission: 02/18/19 - Critical Care Critical Care patient: No
--- NOTE | 2019-02-18 06:41 | PDOC ---
Documentation entered by Jose Carcamo SCRIBE, acting as scribe for Yuliana Major DO. Yuliana Major DO: This documentation has been prepared by the aCrlos Alberto stein Matthew, SCRIBE, under my direction and personally reviewed by me in its entirety. I confirm that the documentation accurately reflects all work, treatment, procedures, and medical decision making performed by me. Attending Attestation - Resident Resident Name: dAdi Briggs - ED Attending Attestation I have performed the following: I have examined & evaluated the patient, The case was reviewed & discussed with the resident, I agree w/resident's findings & plan - HPI HPI: 02/17/19 23:39 Patient is an 88 year old male with a significant past medical history of HTN, HLD, Parkinsons, Diabetes Mellitus, GERD, Renal Insufficiency, PUD who presents to the ED with complaints of elevated fever. [facility], patient began to experience slight elevated fever this afternoon, prompting staff to send the patient into the ED for further evaluation. Staff states patient was found to have increased neck rigidity this afternoon, stating they thought it initially to be due to his Parkinson's but noticed it to be more severe than his baseline. Denies chest pain, Sob. Denies nausea, vomiting. Denies fevers, chills. Denies constipation, diarrhea. Denies dysuria, hematuria. Denies contact with sick individuals, out of state travelling. Denies any other symptoms. Allergies: NKDA Social history: From [facility]. No smoking. No alcohol. No illicit drugs. Surgical history: Joint Replacement (right hip bilateral knee) PMD: Dr. Castorena - Physicial Exam PE: 02/17/19 23:39 Agree with residents Physical Exam. - Medical Decision Making 02/18/19 06:39 88-year-old male sent for evaluation for possible meningitis after persistent fevers despite antibiotic treatment for a urinary tract infection Multiple attempts were made at lumbar puncture which were unsuccessful Phone consent was obtained from the patient's family member who is also recorded on paperwork as the responsible green party After multiple failed attempts, efforts were ceased and patient was admitted to medical service Plan is for antibiotic coverage and probable IR. Lumbar puncture
[2019-02-18] MEDS ORDERED: INSULIN (LEVEMIR) 100 UNITS/ML UNITS SQ ONE (07:00)
[2019-02-18] MEDS ORDERED: INSULIN (NOVOLOG) ASPART 100 UNITS/ML 10ML VIAL ONE (07:01)
[2019-02-18] MEDS: SODIUM CHLORIDE 1,000 ML IV SCH (07:07)
[2019-02-18] MEDS: INSULIN SLIDING SCALE (NOVOLOG) 1 VIAL SQ SCH ×4 (07:08→21:51)
[2019-02-18] MEDS: INSULIN (LEVEMIR) 100 UNITS/ML UNITS SQ SCH (07:08)
[2019-02-18] MEDS ORDERED: CARBIDOPA/LEVODOPA 25/100 TABLET (FP) ONE (07:10)
[2019-02-18] MEDS: TAMSULOSIN HCL 0.4 MG CAP PO SCH (09:20)
[2019-02-18] MEDS: CITALOPRAM HYDROBROMIDE 10 MG TABLET (FP) PO SCH (09:21)
[2019-02-18] MEDS: PANTOPRAZOLE 40 MG TABLET (FP) PO SCH (09:25)
[2019-02-18] MEDS: LISINOPRIL 5 MG TABLET (FP) PO SCH (09:25)
[2019-02-18] MEDS: MULTIVITAMINS (DAILY MVI) TABLET (FP) PO SCH (09:26)
[2019-02-18] MEDS: CYANOCOBALAMIN (VITAMIN B-12) 100 MCG TABLET PO SCH (09:27)
[2019-02-18] MEDS ORDERED: ASPIRIN 81 MG CHEWABLE TABLETS PO SCH (10:00)
[2019-02-18] MEDS ORDERED: HEPARIN NA (PORCINE) 5,000 UNITS/ML 1ML VIAL SQ SCH (10:00)
--- NOTE | 2019-02-18 11:42 | PN ---
Progress Note (short form) - Note Progress Note: Events noted spoke with DR Castorena- was on Zosyn and Levaquin prior to sending him to ER was on antibiotics for aspiration pneumonia still developed fever despite antibiotics and felt to have more neck rigidity - - he has Parkinsons disease Vital Signs - 24 hr 02/17/19 02/18/19 22:31 07:00 Temperature 103.4 F H Pulse Rate 108 H Pulse Rate [ 71 Left] Respiratory 22 H 18 Rate Blood Pressure 116/62 Blood Pressure 122/71 [Left Arm] O2 Sat by Pulse 98 98 Oximetry (%) Current Medications Generic Name Dose Route Start Last Admin Trade Name Freq PRN Reason Stop Dose Admin Aspirin 81 mg 02/18/19 10:00 02/18/19 09:21 Asa - PO 81 mg DAILY ASYA Administration Atorvastatin Calcium 20 mg 02/18/19 22:00 Lipitor - PO HS ASYA Carbidopa/Levodopa 1 each 02/18/19 06:30 Sinemet 25/100 - PO TID ASYA Citalopram Hydrobromide 10 mg 02/18/19 10:00 02/18/19 09:21 Celexa - PO 10 mg DAILY ASYA Administration Cyanocobalamin 100 mcg 02/18/19 10:00 02/18/19 09:27 Vitamin B12 - PO 100 mcg DAILY ASYA Administration Docusate Sodium 200 mg 02/18/19 22:00 Colace - PO HS [facility] Heparin Sodium (Porcine) 5,000 unit 02/18/19 10:00 02/18/19 09:22 Heparin - SQ 5,000 unit BID ASYA Administration Sodium Chloride 1,000 mls @ 75 mls/hr 02/18/19 06:15 02/18/19 07:07 Normal Saline - IV 75 mls/hr ASDIR ASYA Administration Insulin Aspart 1 vial 02/18/19 07:00 02/18/19 07:08 Novolog Vial Sliding Scale - SQ 6 units ACHS ASYA Administration Protocol Insulin Detemir 12 units 02/18/19 07:00 02/18/19 07:08 Levemir Vial SQ 12 units 0700 ASYA Administration Lisinopril 2.5 mg 02/18/19 10:00 02/18/19 09:25 Prinivil PO 2.5 mg DAILY ASYA Administration Mirtazapine 7.5 mg 02/18/19 22:00 Remeron - PO HS ASYA Multivitamins/Minerals/Vitamin C 1 tab 02/18/19 10:00 02/18/19 09:26 Tab-A-Vit - PO 1 tab DAILY ASYA Administration Pantoprazole Sodium 40 mg 02/18/19 10:00 02/18/19 09:25 Protonix - PO 40 mg DAILY ASYA Administration Tamsulosin HCl 0.4 mg 02/18/19 08:30 02/18/19 09:20 Flomax - PO 0.4 mg 0830 ASYA Administration Laboratory Results - last 24 hr 02/17/19 02/17/19 02/17/19 23:10 23:10 23:10 WBC 13.6 H RBC 3.40 L Hgb 11.0 L Hct 34.3 L MCV 100.9 H MCH 32.4 MCHC 32.1 RDW 13.9 Plt Count 372 D MPV 8.1 Absolute Neuts (auto) 10.6 H Neutrophils % 78.4 D Lymphocytes % 10.8 D Monocytes % 8.5 Eosinophils % 1.7 D Basophils % 0.6 Nucleated RBC % 0 PT with INR 14.40 H INR 1.22 H PTT (Actin FS) 29.4 Sodium 147 H Potassium 4.6 Chloride 115 H Carbon Dioxide 26 Anion Gap 6 L BUN 50 H Creatinine 2.0 H Est GFR (CKD-EPI)AfAm 34.02 Est GFR (CKD-EPI)NonAf 29.35 POC Glucometer Random Glucose 248 H Lactic Acid Calcium 9.1 Total Bilirubin 0.4 AST 15 ALT 10 L Alkaline Phosphatase 53 Troponin I Total Protein 7.2 Albumin 3.0 L Urine Color Urine Appearance Urine pH Ur Specific [place] Urine Protein Urine Glucose (UA) Urine Ketones Urine Blood Urine Nitrite Urine Bilirubin Urine Urobilinogen Ur Leukocyte Esterase Urine WBC (Auto) Urine RBC (Auto) Urine Casts (Auto) U Epithel Cells (Auto) Urine Bacteria (Auto) Urine Yeast (Auto) 02/17/19 02/17/19 02/18/19 23:10 23:10 01:20 WBC RBC Hgb Hct MCV MCH MCHC RDW Plt Count MPV Absolute Neuts (auto) Neutrophils % Lymphocytes % Monocytes % Eosinophils % Basophils % Nucleated RBC % PT with INR INR PTT (Actin FS) Sodium Potassium Chloride Carbon Dioxide Anion Gap BUN Creatinine Est GFR (CKD-EPI)AfAm Est GFR (CKD-EPI)NonAf POC Glucometer Random Glucose Lactic Acid 2.8 H* Calcium Total Bilirubin AST ALT Alkaline Phosphatase Troponin I < 0.02 Total Protein Albumin Urine Color Dk yellow Urine Appearance Turbid Urine pH 5.5 D Ur Specific [place] 1.021 Urine Protein 2+ H Urine Glucose (UA) Negative Urine Ketones Negative Urine Blood 3+ H Urine Nitrite Positive H Urine Bilirubin 1+ H Urine Urobilinogen 1.0 Ur Leukocyte Esterase 3+ H Urine WBC (Auto) 533 Urine RBC (Auto) 115 Urine Casts (Auto) 3 U Epithel Cells (Auto) 0.3 Urine Bacteria (Auto) 2.5 Urine Yeast (Auto) 0 02/18/19 02/18/19 02:45 06:55 WBC RBC Hgb Hct MCV MCH MCHC RDW Plt Count MPV Absolute Neuts (auto) Neutrophils % Lymphocytes % Monocytes % Eosinophils % Basophils % Nucleated RBC % PT with INR INR PTT (Actin FS) Sodium Potassium Chloride Carbon Dioxide Anion Gap BUN Creatinine Est GFR (CKD-EPI)AfAm Est GFR (CKD-EPI)NonAf POC Glucometer 264 Random Glucose Lactic Acid 1.1 Calcium Total Bilirubin AST ALT Alkaline Phosphatase Troponin I Total Protein Albumin Urine Color Urine Appearance Urine pH Ur Specific [place] Urine Protein Urine Glucose (UA) Urine Ketones Urine Blood Urine Nitrite Urine Bilirubin Urine Urobilinogen Ur Leukocyte Esterase Urine WBC (Auto) Urine RBC (Auto) Urine Casts (Auto) U Epithel Cells (Auto) Urine Bacteria (Auto) Urine Yeast (Auto) S1 s2 RRR Lungs decreased Abd- soft, NT no edema stiffness arms and legs and neck no distress PLAN on broad spectrum antibiotics dc Heparin sc for now pending LP cultures obtained ID eval aspiration precautions swallow eval Problem List - Problems (1) Sepsis Code(s): A41.9 - SEPSIS, UNSPECIFIED ORGANISM Qualifiers: Sepsis type: sepsis due to unspecified organism Qualified Code(s): A41.9 - Sepsis, unspecified organism (2) CKD (chronic kidney disease), stage II Code(s): N18.2 - CHRONIC KIDNEY DISEASE, STAGE 2 (MILD) (3) Acute respiratory failure with hypoxia Code(s): J96.01 - ACUTE RESPIRATORY FAILURE WITH HYPOXIA (4) Parkinsonism Code(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
[2019-02-18] MEDS: CARBIDOPA/LEVODOPA 25/100 TABLET (FP) PO SCH ×2 (14:00→21:43)
[2019-02-18] MEDS ORDERED: DEXTROSE 5%-0.45% SALINE 1,000 ML IV SCH (16:00)
--- NOTE | 2019-02-18 17:16 | EKG ---
Test Reason : Blood Pressure : / mmHG Vent. Rate : 076 BPM Atrial Rate : 076 BPM P-R Int : 152 ms QRS Dur : 080 ms QT Int : 400 ms P-R-T Axes : 180 -18 -03 degrees QTc Int : 450 ms UNUSUAL P AXIS, POSSIBLE ECTOPIC ATRIAL RHYTHM ABNORMAL ECG WHEN COMPARED WITH ECG OF 05-FEB-2019 12:44, ECTOPIC ATRIAL RHYTHM HAS REPLACED SINUS RHYTHM Confirmed by HARESH SIM, ALFRED ([id number]) on 02/18/2019 5:16:27 PM Referred By: Confirmed By:ALFRED HUTSON MD
[2019-02-18] MEDS: ERTAPENEM SODIUM 0.5 GM in SODIUM CHLORIDE 50 ML IVPB SCH (19:55)
[2019-02-18] MEDS ORDERED: PT OWN MED DRAWER 7, Y5N ONE (21:17)
[2019-02-18] MEDS: DOCUSATE SODIUM 100 MG CAPSULE (FP) PO SCH (21:43)
[2019-02-18] MEDS: ATORVASTATIN CA 20 MG TABLET (FP) PO SCH (21:43)
[2019-02-18] MEDS: MIRTAZAPINE 15 MG TABLET (FP) PO SCH (22:50)
[2019-02-19] MEDS: INSULIN SLIDING SCALE (NOVOLOG) 1 VIAL SQ SCH ×4 (06:11→22:01)
[2019-02-19] MEDS: INSULIN (LEVEMIR) 100 UNITS/ML UNITS SQ SCH (06:11)
[2019-02-19] MEDS: CARBIDOPA/LEVODOPA 25/100 TABLET (FP) PO SCH ×4 (06:11→21:58)
[2019-02-19 06:45] LABS: HEMATOCRIT 30.1 % (35.4-49); HEMOGLOBIN 9.8 GM/dL (11.7-16.9); MCH 32.6 pg (25.7-33.7); MCHC 32.5 g/dl (32.0-35.9); MEAN CELL VOLUME 100.2 fl (80-96); MEAN PLT VOLUME 8.4 fl (7.5-11.1); PLATELET COUNT 291 K/MM3 (134-434); RDW 13.4 % (11.9-15.9); WHITE BLOOD COUNT 8.7 K/mm3 (4.0-10.0)
[2019-02-19 07:24] LABS: CALCIUM 8.1 mg/dL (8.5-10.1); CREATININE 0.9 mg/dL (0.55-1.3); POTASSIUM 4.2 mmol/L (3.5-5.1)
[2019-02-19] MEDS: TAMSULOSIN HCL 0.4 MG CAP PO SCH (08:07)
[2019-02-19] MEDS ORDERED: PT OWN MED DRAWER 7, Y5N ONE (10:06)
[2019-02-19] MEDS: ERTAPENEM SODIUM 0.5 GM in SODIUM CHLORIDE 50 ML IVPB SCH (10:08)
[2019-02-19] MEDS: PANTOPRAZOLE 40 MG TABLET (FP) PO SCH (10:12)
[2019-02-19] MEDS: MULTIVITAMINS (DAILY MVI) TABLET (FP) PO SCH (10:12)
[2019-02-19] MEDS: CYANOCOBALAMIN (VITAMIN B-12) 100 MCG TABLET PO SCH (10:12)
[2019-02-19] MEDS: CITALOPRAM HYDROBROMIDE 10 MG TABLET (FP) PO SCH (10:13)
--- NOTE | 2019-02-19 10:36 | PN ---
Progress Note (short form) - Note Progress Note: pt seen/ examined chart reviewed all f/u noted awake denies headache/ neck pain Vital Signs Temp 97.5 F L 02/19/19 10:27 Pulse 70 02/19/19 10:27 Resp 18 02/19/19 10:27 BP 96/52 L 02/19/19 10:27 Pulse Ox 99 02/18/19 21:00 Intake & Output 02/18/19 02/18/19 02/19/19 11:59 23:59 11:59 Intake Total 83 1579 Balance 83 1579 Weight 153 lb 1 oz 155 lb 1.6 oz Intake: IV 83 1328 D5-1/2Ns - 1,000 ml @ 83 83 1328 mls/hr IV ASDIR ASYA Rx#: [id number] IVPB 100 Oral 151 Other: Voiding Method Diaper Incontinent # Unmeasured Voids Void 2 1 Height 5 ft 7 in Body Mass Index (BMI) 23.9 Weight Measurement Method Wheelchair Built in Bedscale Active Medications Atorvastatin Calcium (Lipitor -) 20 mg PO [facility] Last Admin: 02/18/19 21:43 Dose: 20 mg Carbidopa/Levodopa (Sinemet 25/100 -) 1 each PO TID [facility] Last Admin: 02/19/19 07:12 Dose: Not Given Citalopram Hydrobromide (Celexa -) 10 mg PO DAILY [facility] Last Admin: 02/19/19 10:13 Dose: 10 mg Cyanocobalamin (Vitamin B12 -) 100 mcg PO DAILY [facility] Last Admin: 02/19/19 10:12 Dose: 100 mcg Docusate Sodium (Colace -) 200 mg PO [facility] Last Admin: 02/18/19 21:43 Dose: 200 mg Sodium Chloride (Normal Saline -) 1,000 mls @ 75 mls/hr IV ASDIR ASYA Last Admin: 02/18/19 07:07 Dose: 75 mls/hr Dextrose/Sodium Chloride (D5-1/2ns -) 1,000 mls @ 83 mls/hr IV ASDIR ASYA Last Admin: 02/18/19 17:31 Dose: 83 mls/hr Ertapenem 0.5 gm/ Sodium (Chloride) 50 mls @ 100 mls/hr IVPB DAILY [facility] Last Admin: 02/19/19 10:08 Dose: 100 mls/hr Insulin Aspart (Novolog Vial Sliding Scale -) 1 vial SQ ACHS [facility]; Protocol Last Admin: 02/19/19 06:11 Dose: 2 units Insulin Detemir (Levemir Vial) 12 units SQ 0700 [facility] Last Admin: 02/19/19 06:11 Dose: 12 units Lisinopril (Prinivil) 2.5 mg PO DAILY [facility] Last Admin: 02/18/19 09:25 Dose: 2.5 mg Mirtazapine (Remeron -) 7.5 mg PO HS [facility] Last Admin: 02/18/19 22:50 Dose: 7.5 mg Multivitamins/Minerals/Vitamin C (Tab-A-Vit -) 1 tab PO DAILY [facility] Last Admin: 02/19/19 10:12 Dose: 1 tab Pantoprazole Sodium (Protonix -) 40 mg PO DAILY [facility] Last Admin: 02/19/19 10:12 Dose: 40 mg Tamsulosin HCl (Flomax -) 0.4 mg PO 0830 [facility] Last Admin: 02/19/19 08:07 Dose: 0.4 mg CBC, BMP 02/19/19 05:30 02/19/19 05:30 Microbiology 02/18/19 01:20 Urine Culture - Final Urine - Urine - Catheterized NO GROWTH OBTAINED 02/17/19 23:10 Blood Culture - Preliminary Blood - Peripheral Venous NO GROWTH OBTAINED AFTER 24 HOURS, INCUBATION TO CONTINUE FOR 4 DAYS. 02/17/19 23:10 Blood Culture - Preliminary Blood - Peripheral Venous NO GROWTH OBTAINED AFTER 24 HOURS, INCUBATION TO CONTINUE FOR 4 DAYS. Physical S1 s2 RRR Lungs decreased Abd- soft, NT no edema PLAN on broad spectrum antibiotics ID eval --Discussed with f/u cultures will follow iv fluids for now Problem List - Problems (1) Sepsis Code(s): A41.9 - SEPSIS, UNSPECIFIED ORGANISM Qualifiers: Sepsis type: sepsis due to unspecified organism Qualified Code(s): A41.9 - Sepsis, unspecified organism (2) CKD (chronic kidney disease), stage II Code(s): N18.2 - CHRONIC KIDNEY DISEASE, STAGE 2 (MILD) (3) Acute respiratory failure with hypoxia Code(s): J96.01 - ACUTE RESPIRATORY FAILURE WITH HYPOXIA (4) Parkinsonism Code(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
[2019-02-19] MEDS: LISINOPRIL 5 MG TABLET (FP) PO SCH (10:38)
[2019-02-19] MEDS ORDERED: ERTAPENEM SODIUM 1 GM in SODIUM CHLORIDE 50 ML IVPB SCH (11:00)
--- NOTE | 2019-02-19 11:01 | PN ---
Progress Note (short form) - Note Progress Note: ID CONSULT DICTATED HIGH GRADE FEVER IN PT FROM [place] ON EMPIRIC ZOSYN/LEVAQUIN UTI ? RESISTANT URINARY TRACT PATHOGENS R/O ASP PNEUMONIA EXACERBATION, PARKINSONISM NO EVIDENCE FOR ACUTE BACTERIAL MENINGITIS AWAIT C/S RENAL SONO R/O HN/ PERINEPHRIC ABSCESS FLU SWAB EMPIRIC ERTAPENEM
[2019-02-19] MEDS: SODIUM CHLORIDE 1,000 ML IV SCH (11:14)
[2019-02-19] MEDS ORDERED: INSULIN (NOVOLOG) ASPART 100 UNITS/ML 10ML VIAL ONE (11:17)
--- NOTE | 2019-02-19 11:28 | CONS ---
DATE OF CONSULTATION: 02/19/2019 The patient is an 88-year-old male who was evaluated for high-grade fever. History was obtained from the chart and from the patient. He was recently hospitalized at [facility] from February 05 through February 10, being treated for urinary tract infection. He was discharged to the group home to complete a course of oral antibiotic therapy with Ceftin. At the group home he developed a recurrent fever. He was empirically treated with Zosyn and Levaquin. Despite the antibiotic therapy, he apparently had worsening nuchal rigidity superimposed on his underlying parkinsonism. He was noted to have fever to 102. Patient was transferred to the emergency room where he was evaluated. A CAT scan of the head was performed and was negative for new infarct or bleed. He was noted to have fever to 103.4. Urinalysis showed many white cells. Cultures are pending. Chest x-ray negative for new infiltrate. He is awake and responsive. He complains of pain in the right preauricular area. He denies any chest pain, shortness of breath, cough or sputum production. Denies dysuria or hematuria. No reported vomiting or diarrhea. No reports of infected decubitus ulcers. PAST MEDICAL HISTORY: Positive for parkinsonism, dementia, coronary artery disease, chronic kidney disease, diabetes mellitus, hypertension, hyperlipidemia, recurrent urinary tract infections. ALLERGIES: No known allergies. PAST SURGICAL HISTORY: Status post bilateral total knee replacements. MEDICATIONS: Include aspirin, Reglan, Prilosec, Flomax, metformin, Celexa, Prinivil, Zocor, Sinemet. SOCIAL HISTORY: Resides in a halfway facility. He is a nonsmoker, nondrinker. REVIEW OF SYSTEMS: Neurologic: Positive for parkinsonism. No loss of consciousness, seizure activity, or focal weakness. Cardiac: Negative chest pain or palpitations. Respiratory: Positive for cough. No respiratory distress. Gastrointestinal: Negative vomiting or diarrhea. Genitourinary: Positive for urinary tract infection. LABORATORY DATA: White count on admission 13.6, 78 neutrophils, 10 lymphocytes, 8 monocytes. Presently white count 8.7. Hematocrit 30.1, platelets 291. Creatinine 0.9. Blood and urine cultures are pending. Chest x-ray negative for new infiltrate. PHYSICAL EXAMINATION: General: He is awake, seated in bed. He answers questions appropriately. He is in no acute distress, not acutely toxic appearing. Vital Signs: Temperature 97.7, T-max 103.4. Blood pressure 110/64, pulse 72, regular. Respirations 20 per minute. HEENT: Sclerae are anicteric. Neck: Slightly stiff; however, he is able to flex his neck. No tenderness elicited. There is no parotid swelling or tenderness or erythema in the right preauricular area. Cardiac: Heart sounds S1, S2. Lungs: Coarse rhonchi bilaterally. Abdomen: Soft. No tenderness elicited. No mass, rebound, or rigidity. Extremities: Negative for edema. IMPRESSION: 1. High-grade fever. 2. Recurrent urinary tract infection, rule out nosocomial urinary tract pathogens. 3. Possible aspiration pneumonia. 4. Exacerbation of parkinsonism. 5. Leukocytosis. Await cultures, obtain influenza swab. Sonogram of the kidneys and bladder has been obtained. Would broaden antimicrobial coverage to include possible resistant urinary tract pathogens with ertapenem. No evidence at this time to suggest a primary central nervous system infection. Will follow Thank you for the kind referral. GRETA NOE M.D. [id number]
--- NOTE | 2019-02-19 12:06 | CONSULT ---
Admitting History and Physical - Primary Care Physician PCP: Caitlin García - Admission History of Present Illness: 88 year old man, [facility] resident, w/ multiple coomorbidities, recurrent UTIs, recently treated with pip/tazo and levaquin for aspiration pneumonia. He was sent to ER for high fevers in [place]. ID CONSULT DICTATED HIGH GRADE FEVER IN PT FROM [place] ON EMPIRIC ZOSYN/LEVAQUIN UTI ? RESISTANT URINARY TRACT PATHOGENS R/O ASP PNEUMONIA EXACERBATION, PARKINSONISM NO EVIDENCE FOR ACUTE BACTERIAL MENINGITIS Pt was on reg diet and nectar thick liquid at [facility]. Selected Entries 02/19/19 02/19/19 02/19/19 06:00 10:27 11:17 Breakfast 75% Temperature 97.7 F 97.5 F L Laboratory Tests 02/17/19 02/19/19 23:10 05:30 WBC 13.6 H 8.7 This is my first consult with this pt. History Source: Medical Record Limitations to Obtaining History: No Limitations, Dementia, Language Barrier - Past Medical History NUCLEAR MEDICAL TECH: Yes: Dementia Cardiovascular: Yes: HTN, Hyperlipdemia Gastrointestinal: Yes: GERD, Peptic Ulcer Disease Renal/: Yes: Renal Inusuff Endocrine: Yes: Diabetes Mellitus - Past Surgical History Past Surgical History: Yes: Joint Replacement (right hip bilateral knee) - Advance Directives Advance Directives: Yes: DNR - Smoking History Smoking history: Never smoked Have you smoked in the past 12 months: No Aproximately how many cigarettes per day: 0 - Alcohol/Substance Use Hx Alcohol Use: No History of Substance Use: reports: None - Social History ADL: Support Services History of Recent Travel: No History - Admission Reason For Visit: SEPSIS - Diagnostics X-ray: Report Reviewed CT Scan: Report Reviewed - General Mental Status: Awake and Alert, Able to Follow Commands, Forgetful, Vague, Intermittently Confused Attention: Intact Ability to Follow Directions: Fair Head/Neck Control: Good - Hearing Hearing: Impaired Hearing Aide: No With Patient: No Speech Evaluation - Communication Primary Language: ARABIC Communication: Yes: Within Normal Limits, Language Barrier Oral Expression Ability: Yes: No Impairment - Speech Production Able to Make Needs Known: Yes: WNL Intelligibility: Yes: WNL - Speech Characteristics Voice Loudness: Normal Voice Pitch: Yes: Normal Voice Phonatory-based Quality: Yes: Normal Speech Pattern: Normal Speech Clarity: < 100% Nasal Resonance: Normal Articulation: Yes: Precise Rate of Speech: Intact - Language/Auditory Comprehension Follows: Yes: 1 Stage Simple Commands - Language/Verbal Expression Functional Communication Status: Yes: WNL - Swallow Evaluation/Bedside Assessment Current Nutritional Intake: Dysphagia Pureed, Thin Liquids Oral Secretions: Yes: Tongue Coated (BLACK) Dentition: Yes: Adequate Facial Symmetry at Rest: Symmetrical Lingual Movement: Symmetric (BLACK coating) Lingual Speed of Movement: Normal Lingual Movement Strgth Against Opposition: Normal Laryngeal Movement: Able to Palpate Rate of Intake: WFL Bolus Size: WFL Labial Seal: WFL Chewing: Impaired Oral Prep Time: Increased Timing of Swallow: Delayed Coughing/Throat Clear: Yes (after intake. Congestion) Recommendations - Speech Evaluation, Impression/Plan Impression: Tongue coated black. Delayed cough after PO intake.R/O silent aspiration on thin liquid. - Disposition Discharge to: [facility] - Dysphagia Impressions/Plan Dysphagia Impressions: Risk of Aspiration, Ongoing Evaluation *Silent aspiration: cannot be R/O at bedside Dysphagia Treatment Plan: Swallowing Exercises, Chin Tuck/Down, Clear Pocket Food, Facilitative Feeding, Safe Rate, Elevate HOB during feed, OOB for meals Recommendations: Modified Barium Swallow, Other (Medical mgmt of black tongue coating. [place]/clean tongue.) - Recommendations Diet Consistency: Dysphagia Pureed Medication Administration: Crushed with applesauce Liquids: [place] Thick Supplement: Magic Cup, Ensure Pudding
--- NOTE | 2019-02-19 17:27 | HOSP ---
Subjective - Review of Symptoms General: Yes: Other Pulmonary: Yes: Other (patient unable to particpate in ROS 2/2 to dementia) Cardiovascular: Yes: Other Gastrointestinal: Yes: Other Genitourinary: Yes: Other Musculoskeletal: Yes: Other Neurological: Yes: Other Physical Examination Vital Signs: Vital Signs Temperature 97.8 F 02/19/19 15:14 Pulse Rate 77 02/19/19 15:14 Respiratory Rate 17 02/19/19 15:14 Blood Pressure 170/58 L 02/19/19 15:14 O2 Sat by Pulse Oximetry (%) 99 02/19/19 09:00 Constitutional: Yes: Well Nourished, No Distress, Calm Eyes: Yes: WNL HENT: Yes: WNL Neck: Yes: WNL Cardiovascular: Yes: Regular Rate and Rhythm Respiratory: Yes: Regular Gastrointestinal: Yes: Normal Bowel Sounds ...Rectal Exam: Yes: Deferred Edema: LUE: Trace (iv infiltration) Integumentary: Yes: Erythema (left arm s/p iv infiltration) Neurological: Yes: Confusion Labs: CBC, BMP 02/19/19 05:30 02/19/19 05:30 Hospitalist Encounter Assessment: Called to see patient for shortness of breath Patient is an 88 year old male from [facility] who was seen at the request of primary RN over concerns of volume overload. PMHX includes UTI, Parkinsons dementia. He comes to [facility] from with high fevers and aspiration pneumonia and concerns over possible meningitis. During hospitalization he was treated with broad spectrum antibiotics and was seen by speech and swallow. On exam he was noted to be comfortably laying in his bed, offers no complaints, ROS limited 2/2 to cognitive impairment. He is noted to have bilateral lobe rales. vitals: bp 118/59, heart rate 75 reg , 99% 2 liters and afebrile. plan: he is otherwise comfortable and not in acute distress. he is on 2 liters NC since admission with stable saturations he was noted to have raven on admission. 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
[2019-02-19] MEDS: MIRTAZAPINE 15 MG TABLET (FP) PO SCH (21:57)
[2019-02-19] MEDS: DOCUSATE SODIUM 100 MG CAPSULE (FP) PO SCH (21:57)
[2019-02-19] MEDS: ATORVASTATIN CA 20 MG TABLET (FP) PO SCH (21:58)
[2019-02-20] MEDS: CARBIDOPA/LEVODOPA 25/100 TABLET (FP) PO SCH ×3 (06:07→22:32)
[2019-02-20] MEDS: INSULIN SLIDING SCALE (NOVOLOG) 1 VIAL SQ SCH ×4 (06:09→22:31)
[2019-02-20] MEDS: INSULIN (LEVEMIR) 100 UNITS/ML UNITS SQ SCH (06:24)
[2019-02-20 08:34] LABS: BASO % 0.6 % (0-2.0); EOS % 13.4 % (0-4.5); HEMATOCRIT 32.1 % (35.4-49); HEMOGLOBIN 10.1 GM/dL (11.7-16.9); LYMPH % 20.2 % (8-40); MCH 32.1 pg (25.7-33.7); MCHC 31.4 g/dl (32.0-35.9); MEAN CELL VOLUME 102.5 fl (80-96); MEAN PLT VOLUME 8.7 fl (7.5-11.1); MONO % 8.6 % (3.8-10.2); NEUT % 57.2 % (42.8-82.8); PLATELET COUNT 295 K/MM3 (134-434); RBC 3.13 M/mm3 (4.00-5.60); RDW 13.6 % (11.9-15.9); WHITE BLOOD COUNT 8.4 K/mm3 (4.0-10.0)
[2019-02-20] MEDS ORDERED: PT OWN MED DRAWER 7, Y5N ONE (09:03)
[2019-02-20] MEDS: MULTIVITAMINS (DAILY MVI) TABLET (FP) PO SCH (09:05)
[2019-02-20] MEDS: PANTOPRAZOLE 40 MG TABLET (FP) PO SCH (09:05)
[2019-02-20] MEDS: LISINOPRIL 5 MG TABLET (FP) PO SCH (09:06)
[2019-02-20] MEDS: CYANOCOBALAMIN (VITAMIN B-12) 100 MCG TABLET PO SCH (09:06)
[2019-02-20] MEDS: CITALOPRAM HYDROBROMIDE 10 MG TABLET (FP) PO SCH (09:06)
[2019-02-20] MEDS: TAMSULOSIN HCL 0.4 MG CAP PO SCH (09:12)
[2019-02-20 09:19] LABS: ALBUMIN 2.5 g/dl (3.4-5.0); BILIRUBIN,TOTAL 0.3 mg/dL (0.2-1); CALCIUM 7.8 mg/dL (8.5-10.1); CREATININE 0.9 mg/dL (0.55-1.3); POTASSIUM 4.5 mmol/L (3.5-5.1); TOT PROT 5.7 g/dl (6.4-8.2)
[2019-02-20] MEDS: ERTAPENEM SODIUM 1 GM in SODIUM CHLORIDE 50 ML IVPB SCH (10:10)
--- NOTE | 2019-02-20 11:50 | PN ---
Progress Note (short form) - Note Progress Note: no fever no distress awake and alert Vital Signs - 24 hr 02/19/19 02/19/19 02/19/19 15:14 18:00 21:00 Temperature 97.8 F 97.3 F L Pulse Rate 77 75 Respiratory 17 18 Rate Blood Pressure 170/58 L 118/59 L O2 Sat by Pulse 99 Oximetry (%) 02/20/19 06:27 Temperature 98.3 F Pulse Rate 69 Respiratory 18 Rate Blood Pressure 109/44 L O2 Sat by Pulse Oximetry (%) Current Medications Generic Name Dose Route Start Last Admin Trade Name Freq PRN Reason Stop Dose Admin Atorvastatin Calcium 20 mg 02/18/19 22:00 02/19/19 21:58 Lipitor - PO 20 mg HS ASYA Administration Carbidopa/Levodopa 1 each 02/18/19 06:30 02/20/19 06:07 Sinemet 25/100 - PO 1 each TID ASYA Administration Citalopram Hydrobromide 10 mg 02/18/19 10:00 02/20/19 09:06 Celexa - PO 10 mg DAILY ASYA Administration Cyanocobalamin 100 mcg 02/18/19 10:00 02/20/19 09:06 Vitamin B12 - PO 100 mcg DAILY ASYA Administration Docusate Sodium 200 mg 02/18/19 22:00 02/19/19 21:57 Colace - PO 200 mg HS ASYA Administration Ertapenem 1 gm/ Sodium 50 mls @ 100 mls/hr 02/20/19 10:00 02/20/19 10:10 Chloride IVPB 100 mls/hr DAILY ASYA Administration Insulin Aspart 1 vial 02/18/19 07:00 02/20/19 06:09 Novolog Vial Sliding Scale - SQ Not Given ACHS [facility] Protocol Insulin Detemir 12 units 02/18/19 07:00 02/20/19 06:24 Levemir Vial SQ 12 units 0700 ASYA Administration Lisinopril 2.5 mg 02/18/19 10:00 02/20/19 09:06 Prinivil PO 2.5 mg DAILY ASYA Administration Mirtazapine 7.5 mg 02/18/19 22:00 02/19/19 21:57 Remeron - PO 7.5 mg HS ASYA Administration Multivitamins/Minerals/Vitamin C 1 tab 02/18/19 10:00 02/20/19 09:05 Tab-A-Vit - PO 1 tab DAILY ASYA Administration Pantoprazole Sodium 40 mg 02/18/19 10:00 02/20/19 09:05 Protonix - PO 40 mg DAILY ASYA Administration Tamsulosin HCl 0.4 mg 02/18/19 08:30 02/20/19 09:12 Flomax - PO 0.4 mg 0830 ASYA Administration Laboratory Results - last 24 hr 02/19/19 02/19/19 02/20/19 18:02 21:59 06:08 WBC RBC Hgb Hct MCV MCH MCHC RDW Plt Count MPV Absolute Neuts (auto) Neutrophils % Lymphocytes % Monocytes % Eosinophils % Basophils % Nucleated RBC % Sodium Potassium Chloride Carbon Dioxide Anion Gap BUN Creatinine Est GFR (CKD-EPI)AfAm Est GFR (CKD-EPI)NonAf POC Glucometer 95 104 82 Random Glucose Calcium Total Bilirubin AST ALT Alkaline Phosphatase Total Protein Albumin 02/20/19 02/20/19 06:30 06:30 WBC 8.4 RBC 3.13 L Hgb 10.1 L Hct 32.1 L MCV 102.5 H MCH 32.1 MCHC 31.4 L RDW 13.6 Plt Count 295 MPV 8.7 Absolute Neuts (auto) 4.8 Neutrophils % 57.2 D Lymphocytes % 20.2 D Monocytes % 8.6 Eosinophils % 13.4 H D Basophils % 0.6 Nucleated RBC % 0 Sodium 147 H Potassium 4.5 Chloride 118 H Carbon Dioxide 20 L Anion Gap 9 BUN 25 H Creatinine 0.9 Est GFR (CKD-EPI)AfAm 89.32 Est GFR (CKD-EPI)NonAf 77.06 POC Glucometer Random Glucose 69 L Calcium 7.8 L Total Bilirubin 0.3 AST 21 ALT 8 L Alkaline Phosphatase 50 Total Protein 5.7 L Albumin 2.5 L S1 s2 RRR Lungs decreased Abd- soft, NT no edema stiffness arms and legs and neck no distress PLAN possible aspiration on broad spectrum antibiotics cultures negative renal sono-- no perinephric abscess ID eval noted aspiration precautions swallow eval noted-- s/p MBS-- recommendations noted Problem List - Problems (1) Sepsis Code(s): A41.9 - SEPSIS, UNSPECIFIED ORGANISM Qualifiers: Sepsis type: sepsis due to unspecified organism Qualified Code(s): A41.9 - Sepsis, unspecified organism (2) CKD (chronic kidney disease), stage II Code(s): N18.2 - CHRONIC KIDNEY DISEASE, STAGE 2 (MILD) (3) Acute respiratory failure with hypoxia Code(s): J96.01 - ACUTE RESPIRATORY FAILURE WITH HYPOXIA (4) Parkinsonism Code(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
[2019-02-20] MEDS: DOCUSATE SODIUM 100 MG CAPSULE (FP) PO SCH (22:31)
[2019-02-20] MEDS: ATORVASTATIN CA 20 MG TABLET (FP) PO SCH (22:32)
[2019-02-20] MEDS: MIRTAZAPINE 15 MG TABLET (FP) PO SCH (22:32)
[2019-02-21] MEDS: CARBIDOPA/LEVODOPA 25/100 TABLET (FP) PO SCH ×3 (05:53→22:50)
[2019-02-21] MEDS: INSULIN (LEVEMIR) 100 UNITS/ML UNITS SQ SCH (07:00)
[2019-02-21 08:15] LABS: CALCIUM 8.2 mg/dL (8.5-10.1); CREATININE 0.9 mg/dL (0.55-1.3); POTASSIUM 4.1 mmol/L (3.5-5.1)
[2019-02-21] MEDS: INSULIN SLIDING SCALE (NOVOLOG) 1 VIAL SQ SCH ×4 (08:15→23:07)
[2019-02-21] MEDS: TAMSULOSIN HCL 0.4 MG CAP PO SCH (08:42)
--- NOTE | 2019-02-21 09:56 | PN ---
Progress Note (short form) - Note Progress Note: no fever no distress awake and alert Vital Signs - 24 hr Vital Signs - 24 hr 02/20/19 02/20/19 02/20/19 17:10 21:00 22:07 Temperature 97.3 F L 97.5 F L Pulse Rate 86 90 Respiratory 18 18 Rate Blood Pressure 130/66 107/94 O2 Sat by Pulse 99 Oximetry (%) 02/21/19 02/21/19 02/21/19 05:24 09:00 15:00 Temperature 97.5 F L 98.4 F 98 F Pulse Rate 78 95 H Respiratory 18 19 Rate Blood Pressure 147/52 L 118/67 122/66 O2 Sat by Pulse 99 Oximetry (%) Current Medications Generic Name Dose Route Start Last Admin Trade Name Freq PRN Reason Stop Dose Admin Atorvastatin Calcium 20 mg 02/18/19 22:00 02/20/19 22:32 Lipitor - PO 20 mg HS ASYA Administration Carbidopa/Levodopa 1 each 02/18/19 06:30 02/21/19 14:05 Sinemet 25/100 - PO 1 each TID ASYA Administration Citalopram Hydrobromide 10 mg 02/18/19 10:00 02/21/19 10:19 Celexa - PO 10 mg DAILY ASYA Administration Cyanocobalamin 100 mcg 02/18/19 10:00 02/21/19 10:19 Vitamin B12 - PO 100 mcg DAILY ASYA Administration Docusate Sodium 200 mg 02/18/19 22:00 02/20/19 22:31 Colace - PO 200 mg HS ASYA Administration Ertapenem 1 gm/ Sodium 50 mls @ 100 mls/hr 02/20/19 10:00 02/21/19 10:20 Chloride IVPB 100 mls/hr DAILY ASYA Administration Insulin Aspart 1 vial 02/18/19 07:00 02/21/19 14:03 Novolog Vial Sliding Scale - SQ Not Given ACHS [facility] Protocol Insulin Detemir 12 units 02/18/19 07:00 02/21/19 07:00 Levemir Vial SQ 12 units 0700 ASYA Administration Lisinopril 2.5 mg 02/18/19 10:00 02/21/19 10:19 Prinivil PO 2.5 mg DAILY ASYA Administration Mirtazapine 7.5 mg 02/18/19 22:00 02/20/19 22:32 Remeron - PO 7.5 mg HS ASYA Administration Multivitamins/Minerals/Vitamin C 1 tab 02/18/19 10:00 02/21/19 10:20 Tab-A-Vit - PO 1 tab DAILY ASYA Administration Pantoprazole Sodium 40 mg 02/18/19 10:00 02/21/19 10:20 Protonix - PO 40 mg DAILY ASYA Administration Tamsulosin HCl 0.4 mg 02/18/19 08:30 02/21/19 08:42 Flomax - PO 0.4 mg 0830 ASYA Administration Laboratory Results - last 24 hr 02/20/19 02/21/19 02/21/19 17:44 05:52 06:45 Sodium 145 Potassium 4.1 Chloride 114 H Carbon Dioxide 26 Anion Gap 4 L BUN 20 H Creatinine 0.9 Est GFR (CKD-EPI)AfAm 89.32 Est GFR (CKD-EPI)NonAf 77.06 POC Glucometer 67 107 Random Glucose 111 H Calcium 8.2 L 02/21/19 12:27 Sodium Potassium Chloride Carbon Dioxide Anion Gap BUN Creatinine Est GFR (CKD-EPI)AfAm Est GFR (CKD-EPI)NonAf POC Glucometer 123 Random Glucose Calcium Microbiology 02/17/19 23:10 Blood Culture - Preliminary Blood - Peripheral Venous NO GROWTH OBTAINED AFTER 72 HOURS, INCUBATION TO CONTINUE FOR 2 DAYS. 02/17/19 23:10 Blood Culture - Preliminary Blood - Peripheral Venous NO GROWTH OBTAINED AFTER 72 HOURS, INCUBATION TO CONTINUE FOR 2 DAYS. S1 s2 RRR Lungs decreased Abd- soft, NT no edema stiffness arms and legs and neck no distress PLAN possible aspiration on broad spectrum antibiotics cultures negative renal sono-- no perinephric abscess ID eval noted aspiration precautions swallow eval noted-- s/p MBS-- recommendations noted clinically improving Problem List - Problems (1) Sepsis Code(s): A41.9 - SEPSIS, UNSPECIFIED ORGANISM Qualifiers: Sepsis type: sepsis due to unspecified organism Qualified Code(s): A41.9 - Sepsis, unspecified organism (2) CKD (chronic kidney disease), stage II Code(s): N18.2 - CHRONIC KIDNEY DISEASE, STAGE 2 (MILD) (3) Acute respiratory failure with hypoxia Code(s): J96.01 - ACUTE RESPIRATORY FAILURE WITH HYPOXIA (4) Parkinsonism Code(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
[2019-02-21] MEDS: LISINOPRIL 5 MG TABLET (FP) PO SCH (10:19)
[2019-02-21] MEDS: CYANOCOBALAMIN (VITAMIN B-12) 100 MCG TABLET PO SCH (10:19)
[2019-02-21] MEDS: CITALOPRAM HYDROBROMIDE 10 MG TABLET (FP) PO SCH (10:19)
[2019-02-21] MEDS: MULTIVITAMINS (DAILY MVI) TABLET (FP) PO SCH (10:20)
[2019-02-21] MEDS: ERTAPENEM SODIUM 1 GM in SODIUM CHLORIDE 50 ML IVPB SCH (10:20)
[2019-02-21] MEDS: PANTOPRAZOLE 40 MG TABLET (FP) PO SCH (10:20)
[2019-02-21] MEDS: DOCUSATE SODIUM 100 MG CAPSULE (FP) PO SCH (22:49)
[2019-02-21] MEDS: ATORVASTATIN CA 20 MG TABLET (FP) PO SCH (22:50)
[2019-02-21] MEDS: MIRTAZAPINE 15 MG TABLET (FP) PO SCH (22:50)
[2019-02-22] MEDS: CARBIDOPA/LEVODOPA 25/100 TABLET (FP) PO SCH ×3 (06:00→21:24)
[2019-02-22] MEDS: INSULIN SLIDING SCALE (NOVOLOG) 1 VIAL SQ SCH ×4 (06:54→21:26)
[2019-02-22] MEDS: INSULIN (LEVEMIR) 100 UNITS/ML UNITS SQ SCH (06:54)
[2019-02-22] MEDS ORDERED: PT OWN MED DRAWER 7, Y5N ONE ×2 (07:01→07:48)
[2019-02-22] MEDS: LISINOPRIL 5 MG TABLET (FP) PO SCH (10:14)
[2019-02-22] MEDS: ERTAPENEM SODIUM 1 GM in SODIUM CHLORIDE 50 ML IVPB SCH (10:15)
[2019-02-22] MEDS: MULTIVITAMINS (DAILY MVI) TABLET (FP) PO SCH (10:15)
[2019-02-22] MEDS: CYANOCOBALAMIN (VITAMIN B-12) 100 MCG TABLET PO SCH (10:15)
[2019-02-22] MEDS: PANTOPRAZOLE 40 MG TABLET (FP) PO SCH (10:15)
[2019-02-22] MEDS: CITALOPRAM HYDROBROMIDE 10 MG TABLET (FP) PO SCH (10:15)
[2019-02-22] MEDS: TAMSULOSIN HCL 0.4 MG CAP PO SCH (10:15)
--- NOTE | 2019-02-22 10:20 | PN ---
Progress Note, TITLE CHECKER - Note Progress Note: MBS reviewed. Pt on Dys chopped/thin liquids. Selected Entries 02/21/19 02/21/19 02/21/19 05:24 09:00 10:04 Breakfast 100% Lunch Supper Temperature 97.5 F L 98.4 F 02/21/19 02/21/19 02/21/19 15:00 17:12 19:17 Breakfast Lunch 100% Supper 50% Temperature 98 F 98.4 F 02/21/19 02/22/19 23:00 06:00 Breakfast Lunch Supper Temperature 98 F 97.6 F Laboratory Tests 02/20/19 06:30 WBC 8.4 Tolerating diet.
--- NOTE | 2019-02-22 12:18 | PN ---
Progress Note (short form) - Note Progress Note: pt seen/ examined chart reviewed all f/u noted Vital Signs Temp 97.6 F 02/22/19 06:00 Pulse 65 02/22/19 06:00 Resp 18 02/22/19 06:00 BP 139/69 02/22/19 06:00 Pulse Ox 99 02/21/19 09:00 Intake & Output 02/21/19 02/22/19 02/22/19 23:59 11:59 23:59 Intake Total 700 Balance 700 Weight 153 lb Intake: Oral 700 Other: Voiding Method Diaper Incontinent # Unmeasured Voids Void 2 2 Bowel Movement Yes # Bowel Movements 1 Active Medications Atorvastatin Calcium (Lipitor -) 20 mg PO [facility] Last Admin: 02/21/19 22:50 Dose: 20 mg Carbidopa/Levodopa (Sinemet 25/100 -) 1 each PO TID [facility] Last Admin: 02/22/19 06:00 Dose: 1 each Citalopram Hydrobromide (Celexa -) 10 mg PO DAILY [facility] Last Admin: 02/22/19 10:15 Dose: 10 mg Cyanocobalamin (Vitamin B12 -) 100 mcg PO DAILY [facility] Last Admin: 02/22/19 10:15 Dose: 100 mcg Docusate Sodium (Colace -) 200 mg PO [facility] Last Admin: 02/21/19 22:49 Dose: 200 mg Ertapenem 1 gm/ Sodium (Chloride) 50 mls @ 100 mls/hr IVPB DAILY [facility] Last Admin: 02/22/19 10:15 Dose: 100 mls/hr Insulin Aspart (Novolog Vial Sliding Scale -) 1 vial SQ ACHS [facility]; Protocol Last Admin: 02/22/19 12:03 Dose: Not Given Insulin Detemir (Levemir Vial) 12 units SQ 0700 [facility] Last Admin: 02/22/19 06:54 Dose: 12 units Lisinopril (Prinivil) 2.5 mg PO DAILY [facility] Last Admin: 02/22/19 10:14 Dose: 2.5 mg Mirtazapine (Remeron -) 7.5 mg PO [facility] Last Admin: 02/21/19 22:50 Dose: 7.5 mg Multivitamins/Minerals/Vitamin C (Tab-A-Vit -) 1 tab PO DAILY [facility] Last Admin: 02/22/19 10:15 Dose: 1 tab Pantoprazole Sodium (Protonix -) 40 mg PO DAILY [facility] Last Admin: 02/22/19 10:15 Dose: 40 mg Tamsulosin HCl (Flomax -) 0.4 mg PO 829 [facility] Last Admin: 02/22/19 10:15 Dose: 0.4 mg CBC, BMP 02/20/19 06:30 02/21/19 06:45 Microbiology 02/17/19 23:10 Blood Culture - Preliminary Blood - Peripheral Venous NO GROWTH OBTAINED AFTER 96 HOURS, INCUBATION TO CONTINUE FOR 1 DAYS. 02/17/19 23:10 Blood Culture - Preliminary Blood - Peripheral Venous NO GROWTH OBTAINED AFTER 96 HOURS, INCUBATION TO CONTINUE FOR 1 DAYS. Physical comfortable S1 s2 RRR Lungs decreased Abd- soft, NT no edema PLAN possible aspiration on broad spectrum antibiotics cultures negative renal sono-- no perinephric abscess ID on case aspiration precautions swallow eval noted-- s/p MBS-- recommendations noted clinically improving will follow Problem List - Problems (1) Sepsis Code(s): A41.9 - SEPSIS, UNSPECIFIED ORGANISM Qualifiers: Sepsis type: sepsis due to unspecified organism Qualified Code(s): A41.9 - Sepsis, unspecified organism (2) CKD (chronic kidney disease), stage II Code(s): N18.2 - CHRONIC KIDNEY DISEASE, STAGE 2 (MILD) (3) Acute respiratory failure with hypoxia Code(s): J96.01 - ACUTE RESPIRATORY FAILURE WITH HYPOXIA (4) Parkinsonism Code(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
[2019-02-22] MEDS: MIRTAZAPINE 15 MG TABLET (FP) PO SCH (21:24)
[2019-02-22] MEDS: DOCUSATE SODIUM 100 MG CAPSULE (FP) PO SCH (21:25)
[2019-02-22] MEDS: ATORVASTATIN CA 20 MG TABLET (FP) PO SCH (21:25)
--- NOTE | 2019-02-23 00:01 | PN ---
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, POORLY RESPONSIVE IN BED NO ACUTE DISTRESS BREATHING NON-LABORED AFEBRILE - Current Medication List Current Medications: Active Medications Atorvastatin Calcium (Lipitor -) 20 mg PO HS [facility] Last Admin: 02/22/19 21:25 Dose: 20 mg Carbidopa/Levodopa (Sinemet 25/100 -) 1 each PO TID [facility] Last Admin: 02/22/19 21:24 Dose: 1 each Citalopram Hydrobromide (Celexa -) 10 mg PO DAILY [facility] Last Admin: 02/22/19 10:15 Dose: 10 mg Cyanocobalamin (Vitamin B12 -) 100 mcg PO DAILY [facility] Last Admin: 02/22/19 10:15 Dose: 100 mcg Docusate Sodium (Colace -) 200 mg PO [facility] Last Admin: 02/22/19 21:25 Dose: 200 mg Ertapenem 1 gm/ Sodium (Chloride) 50 mls @ 100 mls/hr IVPB DAILY [facility] Last Admin: 02/22/19 10:15 Dose: 100 mls/hr Insulin Aspart (Novolog Vial Sliding Scale -) 1 vial SQ ACHS [facility]; Protocol Last Admin: 02/22/19 21:26 Dose: Not Given Insulin Detemir (Levemir Vial) 12 units SQ 0700 [facility] Last Admin: 02/22/19 06:54 Dose: 12 units Lisinopril (Prinivil) 2.5 mg PO DAILY [facility] Last Admin: 02/22/19 10:14 Dose: 2.5 mg Mirtazapine (Remeron -) 7.5 mg PO [facility] Last Admin: 02/22/19 21:24 Dose: 7.5 mg Multivitamins/Minerals/Vitamin C (Tab-A-Vit -) 1 tab PO DAILY [facility] Last Admin: 02/22/19 10:15 Dose: 1 tab Pantoprazole Sodium (Protonix -) 40 mg PO DAILY [facility] Last Admin: 02/22/19 10:15 Dose: 40 mg Tamsulosin HCl (Flomax -) 0.4 mg PO 0830 [facility] Last Admin: 02/22/19 10:15 Dose: 0.4 mg - Objective Vital Signs: Vital Signs Temperature 97.9 F 02/22/19 20:17 Pulse Rate 68 02/22/19 20:17 Respiratory Rate 20 02/22/19 20:17 Blood Pressure 128/79 02/22/19 20:17 O2 Sat by Pulse Oximetry (%) 98 02/22/19 21:00 Constitutional: Yes: No Distress Cardiovascular: Yes: Regular Rate and Rhythm, S1, S2 Respiratory: Yes: Diminished Gastrointestinal: Yes: Normal Bowel Sounds, Soft Edema: No Labs: CBC, BMP 02/20/19 06:30 02/21/19 06:45 INR, PTT INR 1.22 (0.83-1.09) H 02/17/19 23:10 Assessment/Plan R/O ASP PNEUMONIA FEVER- RESOLVED EXACERBATION, PARKINSONISM CONTINUE ERTAPENEM ASP PRECAUTIONS DISCUSSED WITH DAUGHTER AT BEDSIDE
[2019-02-23] MEDS: CARBIDOPA/LEVODOPA 25/100 TABLET (FP) PO SCH ×3 (05:57→21:37)
[2019-02-23] MEDS: INSULIN SLIDING SCALE (NOVOLOG) 1 VIAL SQ SCH ×4 (06:06→21:38)
[2019-02-23 06:27] LABS: BASO % 0.8 % (0-2.0); EOS % 14.5 % (0-4.5); HEMATOCRIT 30.9 % (35.4-49); HEMOGLOBIN 10.4 GM/dL (11.7-16.9); LYMPH % 14.7 % (8-40); MCHC 33.7 g/dl (32.0-35.9); MEAN CELL VOLUME 98.1 fl (80-96); PLATELET COUNT 390 K/MM3 (134-434); RBC 3.15 M/mm3 (4.00-5.60); RDW 13.4 % (11.9-15.9); WHITE BLOOD COUNT 8.4 K/mm3 (4.0-10.0)
[2019-02-23 06:49] LABS: ALBUMIN 2.7 g/dl (3.4-5.0); BILIRUBIN,TOTAL 0.4 mg/dL (0.2-1); CALCIUM 8.5 mg/dL (8.5-10.1); POTASSIUM 4.2 mmol/L (3.5-5.1); TOT PROT 6.2 g/dl (6.4-8.2)
[2019-02-23] MEDS: INSULIN (LEVEMIR) 100 UNITS/ML UNITS SQ SCH (06:54)
[2019-02-23] MEDS ORDERED: PT OWN MED DRAWER 7, Y5N ONE (08:37)
[2019-02-23] MEDS: TAMSULOSIN HCL 0.4 MG CAP PO SCH (08:41)
[2019-02-23] MEDS: ERTAPENEM SODIUM 1 GM in SODIUM CHLORIDE 50 ML IVPB SCH (10:42)
[2019-02-23] MEDS: CITALOPRAM HYDROBROMIDE 10 MG TABLET (FP) PO SCH (10:42)
[2019-02-23] MEDS: LISINOPRIL 5 MG TABLET (FP) PO SCH (10:42)
[2019-02-23] MEDS: CYANOCOBALAMIN (VITAMIN B-12) 100 MCG TABLET PO SCH (10:42)
[2019-02-23] MEDS: MULTIVITAMINS (DAILY MVI) TABLET (FP) PO SCH (10:42)
[2019-02-23] MEDS: PANTOPRAZOLE 40 MG TABLET (FP) PO SCH (10:43)
--- NOTE | 2019-02-23 12:20 | PN ---
Progress Note (short form) - Note Progress Note: no fever no distress awake and alert Vital Signs - 24 hr 02/22/19 02/22/19 02/22/19 15:00 16:00 17:40 Temperature 97.4 F L 97.6 F Pulse Rate 68 81 Respiratory 19 20 Rate Blood Pressure 126/71 110/51 L O2 Sat by Pulse 98 Oximetry (%) 02/22/19 02/22/19 02/23/19 20:17 21:00 06:00 Temperature 97.9 F 97.5 F L Pulse Rate 68 65 Respiratory 20 20 Rate Blood Pressure 128/79 106/50 L O2 Sat by Pulse 98 Oximetry (%) 02/23/19 08:42 Temperature 97.7 F Pulse Rate 68 Respiratory 20 Rate Blood Pressure 124/72 O2 Sat by Pulse Oximetry (%) Current Medications Generic Name Dose Route Start Last Admin Trade Name Freq PRN Reason Stop Dose Admin Atorvastatin Calcium 20 mg 02/18/19 22:00 02/22/19 21:25 Lipitor - PO 20 mg HS ASYA Administration Carbidopa/Levodopa 1 each 02/18/19 06:30 02/23/19 05:57 Sinemet 25/100 - PO 1 each TID ASYA Administration Citalopram Hydrobromide 10 mg 02/18/19 10:00 02/23/19 10:42 Celexa - PO 10 mg DAILY ASYA Administration Cyanocobalamin 100 mcg 02/18/19 10:00 02/23/19 10:42 Vitamin B12 - PO 100 mcg DAILY ASYA Administration Docusate Sodium 200 mg 02/18/19 22:00 02/22/19 21:25 Colace - PO 200 mg HS ASYA Administration Ertapenem 1 gm/ Sodium 50 mls @ 100 mls/hr 02/20/19 10:00 02/23/19 10:42 Chloride IVPB 100 mls/hr DAILY ASYA Administration Insulin Aspart 1 vial 02/18/19 07:00 02/23/19 06:06 Novolog Vial Sliding Scale - SQ Not Given ACHS [facility] Protocol Insulin Detemir 12 units 02/18/19 07:00 02/23/19 06:54 Levemir Vial SQ 12 units 0700 ASYA Administration Lisinopril 2.5 mg 02/18/19 10:00 02/23/19 10:42 Prinivil PO 2.5 mg DAILY ASYA Administration Mirtazapine 7.5 mg 02/18/19 22:00 02/22/19 21:24 Remeron - PO 7.5 mg HS ASYA Administration Multivitamins/Minerals/Vitamin C 1 tab 02/18/19 10:00 02/23/19 10:42 Tab-A-Vit - PO 1 tab DAILY ASYA Administration Pantoprazole Sodium 40 mg 02/18/19 10:00 02/23/19 10:43 Protonix - PO 40 mg DAILY ASYA Administration Tamsulosin HCl 0.4 mg 02/18/19 08:30 02/23/19 08:41 Flomax - PO 0.4 mg 0830 ASYA Administration Laboratory Results - last 24 hr 02/22/19 02/22/19 02/23/19 16:38 20:45 05:20 WBC 8.4 RBC 3.15 L Hgb 10.4 L Hct 30.9 L MCV 98.1 H MCH 33.0 MCHC 33.7 RDW 13.4 Plt Count 390 D MPV 8.0 Absolute Neuts (auto) 5.3 Neutrophils % 63.0 Lymphocytes % 14.7 D Monocytes % 7.0 Eosinophils % 14.5 H Basophils % 0.8 Nucleated RBC % 0 Sodium Potassium Chloride Carbon Dioxide Anion Gap BUN Creatinine Est GFR (CKD-EPI)AfAm Est GFR (CKD-EPI)NonAf POC Glucometer 137 133 Random Glucose Calcium Total Bilirubin AST ALT Alkaline Phosphatase Total Protein Albumin 02/23/19 02/23/19 02/23/19 05:20 05:39 12:13 WBC RBC Hgb Hct MCV MCH MCHC RDW Plt Count MPV Absolute Neuts (auto) Neutrophils % Lymphocytes % Monocytes % Eosinophils % Basophils % Nucleated RBC % Sodium 141 Potassium 4.2 Chloride 111 H Carbon Dioxide 27 Anion Gap 3 L BUN 18 Creatinine 1.0 Est GFR (CKD-EPI)AfAm 78.64 Est GFR (CKD-EPI)NonAf 67.85 POC Glucometer 125 160 Random Glucose 115 H Calcium 8.5 Total Bilirubin 0.4 AST 15 ALT 7 L Alkaline Phosphatase 63 Total Protein 6.2 L Albumin 2.7 L S1 s2 RRR Lungs decreased Abd- soft, NT no edema stiffness arms and legs and neck no distress PLAN possible aspiration on broad spectrum antibiotics-- ertapenum cultures negative renal sono-- no perinephric abscess ID eval noted aspiration precautions clinically improving Problem List - Problems (1) Sepsis Code(s): A41.9 - SEPSIS, UNSPECIFIED ORGANISM Qualifiers: Sepsis type: sepsis due to unspecified organism Qualified Code(s): A41.9 - Sepsis, unspecified organism (2) CKD (chronic kidney disease), stage II Code(s): N18.2 - CHRONIC KIDNEY DISEASE, STAGE 2 (MILD) (3) Acute respiratory failure with hypoxia Code(s): J96.01 - ACUTE RESPIRATORY FAILURE WITH HYPOXIA (4) Parkinsonism Code(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
--- NOTE | 2019-02-23 12:59 | PN ---
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
[2019-02-23 15:56] VITALS: BMI 23.3
[2019-02-23] MEDS: DOCUSATE SODIUM 100 MG CAPSULE (FP) PO SCH (21:37)
[2019-02-23] MEDS: MIRTAZAPINE 15 MG TABLET (FP) PO SCH (21:37)
[2019-02-23] MEDS: ATORVASTATIN CA 20 MG TABLET (FP) PO SCH (21:37)
[2019-02-24] MEDS: CARBIDOPA/LEVODOPA 25/100 TABLET (FP) PO SCH ×3 (06:12→21:09)
[2019-02-24] MEDS: INSULIN SLIDING SCALE (NOVOLOG) 1 VIAL SQ SCH ×4 (06:16→21:10)
[2019-02-24] MEDS: INSULIN (LEVEMIR) 100 UNITS/ML UNITS SQ SCH (06:16)
[2019-02-24] MEDS ORDERED: INSULIN (LEVEMIR) 100 UNITS/ML UNITS SQ ONE (06:41)
[2019-02-24] MEDS: TAMSULOSIN HCL 0.4 MG CAP PO SCH (09:58)
[2019-02-24] MEDS: PANTOPRAZOLE 40 MG TABLET (FP) PO SCH (09:58)
[2019-02-24] MEDS: CITALOPRAM HYDROBROMIDE 10 MG TABLET (FP) PO SCH (09:58)
[2019-02-24] MEDS: CYANOCOBALAMIN (VITAMIN B-12) 100 MCG TABLET PO SCH (09:58)
[2019-02-24] MEDS: LISINOPRIL 5 MG TABLET (FP) PO SCH (09:58)
[2019-02-24] MEDS: ERTAPENEM SODIUM 1 GM in SODIUM CHLORIDE 50 ML IVPB SCH (09:59)
[2019-02-24] MEDS: MULTIVITAMINS (DAILY MVI) TABLET (FP) PO SCH (09:59)
--- NOTE | 2019-02-24 11:42 | PN ---
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 C/O BILATERAL KNEE PAIN TEMPS REMAIN DOWN AFEBRILE WBC WNL CULTURES NEGATIVE - Current Medication List Current Medications: Active Medications Atorvastatin Calcium (Lipitor -) 20 mg PO HS [facility] Last Admin: 02/23/19 21:37 Dose: 20 mg Carbidopa/Levodopa (Sinemet 25/100 -) 1 each PO TID [facility] Last Admin: 02/24/19 06:12 Dose: 1 each Citalopram Hydrobromide (Celexa -) 10 mg PO DAILY [facility] Last Admin: 02/24/19 09:58 Dose: 10 mg Cyanocobalamin (Vitamin B12 -) 100 mcg PO DAILY [facility] Last Admin: 02/24/19 09:58 Dose: 100 mcg Docusate Sodium (Colace -) 200 mg PO [facility] Last Admin: 02/23/19 21:37 Dose: 200 mg Ertapenem 1 gm/ Sodium (Chloride) 50 mls @ 100 mls/hr IVPB DAILY [facility] Last Admin: 02/24/19 09:59 Dose: 100 mls/hr Insulin Aspart (Novolog Vial Sliding Scale -) 1 vial SQ ACHS [facility]; Protocol Last Admin: 02/24/19 06:16 Dose: Not Given Insulin Detemir (Levemir Vial) 12 units SQ 0700 [facility] Last Admin: 02/24/19 06:16 Dose: 12 units Lisinopril (Prinivil) 2.5 mg PO DAILY [facility] Last Admin: 02/24/19 09:58 Dose: 2.5 mg Mirtazapine (Remeron -) 7.5 mg PO [facility] Last Admin: 02/23/19 21:37 Dose: 7.5 mg Multivitamins/Minerals/Vitamin C (Tab-A-Vit -) 1 tab PO DAILY [facility] Last Admin: 02/24/19 09:59 Dose: 1 tab Pantoprazole Sodium (Protonix -) 40 mg PO DAILY [facility] Last Admin: 02/24/19 09:58 Dose: 40 mg Tamsulosin HCl (Flomax -) 0.4 mg PO 0830 [facility] Last Admin: 02/24/19 09:58 Dose: 0.4 mg - Objective Vital Signs: Vital Signs Temperature 97.8 F 02/24/19 06:00 Pulse Rate 87 02/24/19 06:00 Respiratory Rate 20 02/24/19 06:00 Blood Pressure 136/72 02/24/19 06:00 O2 Sat by Pulse Oximetry (%) 100 02/23/19 21:00 Constitutional: Yes: No Distress Eyes: Yes: Conjunctiva Clear Cardiovascular: Yes: Regular Rate and Rhythm, S1, S2 Respiratory: Yes: CTA Bilaterally Gastrointestinal: Yes: Normal Bowel Sounds, Soft. No: Tenderness Extremities: Yes: Other (NO KNEE SWELLING) Edema: No Labs: CBC, BMP 02/23/19 05:20 02/23/19 05:20 INR, PTT INR 1.22 (0.83-1.09) H 02/17/19 23:10 Assessment/Plan R/O ASP PNEUMONIA TOXIC METABOLIC ENCEPHALOPATHY- RESOLVED FEVER- RESOLVED EXACERBATION, PARKINSONISM DISCONTINUE ERTAPENEM, OBSERVE OFF ANTIBIOTICS
--- NOTE | 2019-02-24 11:46 | PN ---
Progress Note (short form) - Note Progress Note: no fever no distress awake and alert Vital Signs - 24 hr 02/23/19 02/23/19 02/23/19 14:10 16:55 21:00 Temperature 97.9 F 97.6 F 98.0 F Pulse Rate 110 H 72 68 Respiratory 20 20 20 Rate Blood Pressure 124/68 110/72 116/63 O2 Sat by Pulse 100 Oximetry (%) 02/24/19 06:00 Temperature 97.8 F Pulse Rate 87 Respiratory 20 Rate Blood Pressure 136/72 O2 Sat by Pulse Oximetry (%) Current Medications Generic Name Dose Route Start Last Admin Trade Name Freq PRN Reason Stop Dose Admin Atorvastatin Calcium 20 mg 02/18/19 22:00 02/23/19 21:37 Lipitor - PO 20 mg HS ASYA Administration Carbidopa/Levodopa 1 each 02/18/19 06:30 02/24/19 06:12 Sinemet 25/100 - PO 1 each TID ASYA Administration Citalopram Hydrobromide 10 mg 02/18/19 10:00 02/24/19 09:58 Celexa - PO 10 mg DAILY ASYA Administration Cyanocobalamin 100 mcg 02/18/19 10:00 02/24/19 09:58 Vitamin B12 - PO 100 mcg DAILY ASYA Administration Docusate Sodium 200 mg 02/18/19 22:00 02/23/19 21:37 Colace - PO 200 mg HS ASYA Administration Insulin Aspart 1 vial 02/18/19 07:00 02/24/19 06:16 Novolog Vial Sliding Scale - SQ Not Given ACHS [facility] Protocol Insulin Detemir 12 units 02/18/19 07:00 02/24/19 06:16 Levemir Vial SQ 12 units 0700 ASYA Administration Lisinopril 2.5 mg 02/18/19 10:00 02/24/19 09:58 Prinivil PO 2.5 mg DAILY [facility]YA Administration Mirtazapine 7.5 mg 02/18/19 22:00 02/23/19 21:37 Remeron - PO 7.5 mg HS [facility]YA Administration Multivitamins/Minerals/Vitamin C 1 tab 02/18/19 10:00 02/24/19 09:59 Tab-A-Vit - PO 1 tab DAILY [facility] Administration Pantoprazole Sodium 40 mg 02/18/19 10:00 05/15/19 09:58 Protonix - PO 40 mg DAILY [facility] Administration Tamsulosin HCl 0.4 mg 02/18/19 08:30 02/24/19 09:58 Flomax - PO 0.4 mg 0830 [facility] Administration Laboratory Results - last 24 hr 02/23/19 02/23/19 02/23/19 12:13 17:54 21:34 POC Glucometer 160 109 167 02/24/19 02/24/19 06:15 11:38 POC Glucometer 109 120 S1 s2 RRR Lungs decreased Abd- soft, NT no edema stiffness arms and legs and neck no distress PLAN spoke with ID-- will observe off antibiotics if remains afebrile will dc in AM cultures negative renal sono-- no perinephric abscess ID eval noted aspiration precautions clinically improving Problem List - Problems (1) Sepsis Code(s): A41.9 - SEPSIS, UNSPECIFIED ORGANISM Qualifiers: Sepsis type: sepsis due to unspecified organism Qualified Code(s): A41.9 - Sepsis, unspecified organism (2) CKD (chronic kidney disease), stage II Code(s): N18.2 - CHRONIC KIDNEY DISEASE, STAGE 2 (MILD) (3) Acute respiratory failure with hypoxia Code(s): J96.01 - ACUTE RESPIRATORY FAILURE WITH HYPOXIA (4) Parkinsonism Code(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
--- NOTE | 2019-02-24 12:35 | PN ---
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 For possible sw tx at [facility] for trial of some soft solids.
[2019-02-24] MEDS: DOCUSATE SODIUM 100 MG CAPSULE (FP) PO SCH (21:09)
[2019-02-24] MEDS: MIRTAZAPINE 15 MG TABLET (FP) PO SCH (21:09)
[2019-02-24] MEDS: ATORVASTATIN CA 20 MG TABLET (FP) PO SCH (21:09)
[2019-02-25] MEDS: INSULIN SLIDING SCALE (NOVOLOG) 1 VIAL SQ SCH ×2 (06:27→14:34)
[2019-02-25] MEDS: INSULIN (LEVEMIR) 100 UNITS/ML UNITS SQ SCH (06:38)
[2019-02-25] MEDS: CARBIDOPA/LEVODOPA 25/100 TABLET (FP) PO SCH ×2 (06:38→16:12)
[2019-02-25] MEDS ORDERED: INSULIN (LEVEMIR) 100 UNITS/ML UNITS SQ ONE (06:50)
[2019-02-25] MEDS: LISINOPRIL 5 MG TABLET (FP) PO SCH (09:41)
[2019-02-25] MEDS: CYANOCOBALAMIN (VITAMIN B-12) 100 MCG TABLET PO SCH (09:41)
[2019-02-25] MEDS: TAMSULOSIN HCL 0.4 MG CAP PO SCH (09:41)
[2019-02-25] MEDS: MULTIVITAMINS (DAILY MVI) TABLET (FP) PO SCH (09:41)
[2019-02-25] MEDS: PANTOPRAZOLE 40 MG TABLET (FP) PO SCH (09:42)
[2019-02-25] MEDS: CITALOPRAM HYDROBROMIDE 10 MG TABLET (FP) PO SCH (09:42)
--- NOTE | 2019-02-25 12:04 | PN ---
Progress Note, INSTRUMENT/CONTROL TECHNICIAN - Note Progress Note: Selected Entries 02/24/19 02/24/19 02/24/19 06:00 09:54 12:00 Breakfast 25% Lunch Supper Temperature 97.8 F 97.5 F L 02/24/19 02/24/19 02/24/19 15:27 17:10 18:31 Breakfast Lunch 100% Supper 0 Temperature 98.2 F 97.8 F 02/24/19 02/25/19 02/25/19 21:00 03:00 09:00 Breakfast Lunch Supper Temperature 97.8 F 97.5 F L 97.6 F 02/25/19 11:41 Breakfast 75% Lunch Supper Temperature Laboratory Tests 02/23/19 05:20 WBC 8.4 MBS reviewed. Pt on Dys chopped/thin liquids. Per HEATING OPERATORS ENGINEER, pt needs encouragement, at times states no more but then continues to eat. Continue diet as ordered. Upgrade would not be beneficial at this time.
--- NOTE | 2019-02-25 12:15 | PN ---
Problem List - Problems (1) Sepsis Code(s): A41.9 - SEPSIS, UNSPECIFIED ORGANISM Qualifiers: Sepsis type: sepsis due to unspecified organism Qualified Code(s): A41.9 - Sepsis, unspecified organism (2) CKD (chronic kidney disease), stage II Code(s): N18.2 - CHRONIC KIDNEY DISEASE, STAGE 2 (MILD) (3) Acute respiratory failure with hypoxia Code(s): J96.01 - ACUTE RESPIRATORY FAILURE WITH HYPOXIA (4) Parkinsonism Code(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
--- NOTE | 2019-02-25 12:38 | DS ---
Physical Examination Vital Signs: Vital Signs Temperature 97.6 F 02/25/19 09:00 Pulse Rate 75 02/25/19 09:00 Respiratory Rate 18 02/25/19 09:00 Blood Pressure 100/57 L 02/25/19 09:00 O2 Sat by Pulse Oximetry (%) 98 02/25/19 09:00 Constitutional: Yes: No Distress, Calm Cardiovascular: Yes: Regular Rate and Rhythm Respiratory: Yes: Diminished Gastrointestinal: Yes: Normal Bowel Sounds, Soft. No: Tenderness Edema: No Labs: CBC, BMP 02/23/19 05:20 02/23/19 05:20 Discharge Summary Reason For Visit: SEPSIS Current Active Problems Sepsis (Acute) Hospital Course: HISTORY OF PRESENT ILLNESS: 88 year old man, [facility] resident, w/ multiple coomorbidities, recurrent UTIs, recently treated with pip/tazo and levaquin for aspiration pneumonia. He was sent to ER for high fevers in [place]. ER course was notable for: (1) meropenem (2) vancomycin (3) cxr Admitted for sepsis Seen by ID Blood cultures and urine cultures negative Possible aspiration-- evaluated by Swallow therapist-- diet adjusted on IV antibiotics-- completed yesterday-- afebrile now sono kidneys-- no perinephric stranding eating better with assistance stable for dc to [place] Condition: Stable - Instructions [facility]position: [facility] - Home Medications Comprehensive Discharge Medication List: Ambulatory Orders Aspirin [ASA -] 81 mg PO DAILY 04/10/13 Omeprazole [Prilosec (RX)] 40 mg PO DAILY 04/10/13 Tamsulosin HCl 0.4 mg PO DAILY 04/10/13 Citalopram Hydrobromide [Celexa -] 10 mg PO DAILY 09/25/13 Lisinopril [Prinivil -] 2.5 mg PO DAILY 09/25/13 Ascorbate Calcium [Vitamin C] 500 mg PO DAILY 11/04/17 Cholecalciferol (Vitamin D3) [Vitamin D3 -] 1,000 unit PO DAILY 11/04/17 Cyanocobalamin [Vitamin B12 -] 100 mcg PO DAILY 11/04/17 Docusate Sodium [Colace] 200 mg PO HS 11/04/17 Insulin Aspart [Novolog Flexpen] 0 unit SQ TID 11/04/17 Mirtazapine 7.5 mg PO HS 11/04/17 Multivitamin [One Daily] 1 each PO DAILY 11/04/17 Simvastatin [Zocor -] 40 mg PO HS 11/04/17 Timolol 0.5% [Timoptic 0.5%] 1 drop OD BID 11/04/17 Zinc Oxide 20% Topical Oint 1 applic TP BID 11/04/17 Acetaminophen [Tylenol .Regular Strength -] 650 mg PO Q6H PRN tablet 11/07/17 Carbidopa/Levodopa 25/100 [Sinemet 25/100 -] 1 tab PO TID 02/05/19 Citalopram Hydrobromide [Celexa -] 10 mg PO DAILY 02/05/19 Insulin Glargine,Hum.rec.anlog [Lantus] 12 units SQ DAILY 02/05/19 Albuterol 2.5/Ipratropium 0.5 [Duoneb -] 1 amp [facility] RQID #30 amp 02/10/19 Arginine/Ascorbate Sod/Dominique AC [Arginaid Powder] 1 each PO DAILY 02/18/19 Insulin Glargine,Hum.rec.anlog [Lantus Solostar PEN -] 0 units SQ HS 02/18/19 Omeprazole Magnesium [Prilosec Otc] 40 mg PO DAILY 02/18/19
[2019-02-25 15:00] VITALS: BP 104/66; PULSE 79; TEMP 98.2
== END 2019-02-25 18:12 | DRG 871 ==
LOC: JER 22:16 → JERBED 02-18 04:56 → J8W 02-18 18:14
PROVIDERS: ADMIT Internal Medicine; ATTEND Internal Medicine
PROC: 009U3ZX Drainage of Spinal Canal, Percutaneous Approach, Diagnostic (ICD-10-PCS; principal; 2019-02-18)
DX: A41.9 Sepsis, unspecified organism (principal); J96.01 Acute respiratory failure with hypoxia; G92 Toxic encephalopathy; J69.0 Pneumonitis due to inhalation of food and vomit; N39.0 Urinary tract infection, site not specified; G20 Parkinson's disease; N18.2 Chronic kidney disease, stage 2 (mild); F02.80 Dementia in other diseases classified elsewhere, unspecified severity, without behavioral disturbance, psychotic disturbance, mood disturbance, and anxiety; E11.22 Type 2 diabetes mellitus with diabetic chronic kidney disease; I12.9 Hypertensive chronic kidney disease with stage 1 through stage 4 chronic kidney disease, or unspecified chronic kidney disease; Z79.84 Long term (current) use of oral hypoglycemic drugs; Z79.4 Long term (current) use of insulin; E78.5 Hyperlipidemia, unspecified; Z96.653 Presence of artificial knee joint, bilateral; Z96.641 Presence of right artificial hip joint; K21.9 Gastro-esophageal reflux disease without esophagitis; Z87.11 Personal history of peptic ulcer disease; Z66 Do not resuscitate
CPT/HCPCS: 36415; 70450-TC; 71045-TC-FY; 74230-TC-FY; 76775-TC; 76856-TC; 80048; 80053; 81003; 82962; 83605; 84484; 85025; 85027; 85610; 85730; 87040; 87086; 92611-GN; 93005; 93010; 99283-25; J0131; J1644; J7030

== ENCOUNTER 2022-08-14 13:06 | Inpatient (IN) | payer OTHER ==
[2022-08-14 13:14] VITALS: BMI 25.0
[2022-08-14] MEDS ORDERED: LORazepam 2 MG/ML SDV VIAL IM ONE (14:20)
[2022-08-14 16:43] LABS: BASO % 0.4 % (0-2.0); EOS % 18.4 % (0-4.5); HEMATOCRIT 37.4 % (35.4-49); HEMOGLOBIN 12.8 GM/dL (11.7-16.9); MCHC 34.2 g/dl (32.0-35.9); MEAN CELL VOLUME 96.5 fl (80-96); MEAN PLT VOLUME 8.4 fl (7.5-11.1); MONO % 10.7 % (3.8-10.2); NEUT % 52.5 % (42.8-82.8); PLATELET COUNT 299 10^3/uL (134-434); RBC 3.87 M/mm3 (4.00-5.60); RDW 13.8 % (11.9-15.9); WHITE BLOOD COUNT 8.4 K/mm3 (4.0-10.0)
[2022-08-14] MEDS ORDERED: ACETAMINOPHEN 325 MG TABLET (FP) PO PRN (17:07)
[2022-08-14 17:11] LABS: BLOOD UREA NITROGEN 25.9 mg/dL (7-18); CALCIUM 8.7 mg/dL (8.5-10.1)
[2022-08-14 17:12] LABS: ALBUMIN 3.1 g/dl (3.4-5.0)
[2022-08-14 17:16] LABS: BILIRUBIN,TOTAL 0.4 mg/dL (0.2-1); TOT PROT 7.2 g/dl (6.4-8.2)
[2022-08-14 18:59] LABS: INR 1.09 (0.83-1.09); PROTHROMBIN TIME (PATIENT) 12.6 SEC (9.7-13.0)
[2022-08-14 19:02] LABS: ACTIVATED PTT 23.5 SECONDS (25.2-36.5)
[2022-08-14] MEDS: ALBUTEROL SO4 2.5/IPRATROPIUM 0.5 INH SOL 3 ML VIAL.NEB. NEB SCH (21:17)
[2022-08-14] MEDS: ZINC OXIDE 20% TOPICAL OINTMENT 30 GM TUBE TP SCH (21:18)
[2022-08-14] MEDS ORDERED: DOCUSATE SODIUM 100 MG CAPSULE (FP) PO ONE (21:21)
[2022-08-14] MEDS ORDERED: MIRTAZAPINE 15 MG TABLET (FP) ONE (21:21)
[2022-08-14] MEDS ORDERED: ATORVASTATIN CA 20 MG TABLET (FP) ONE (21:21)
[2022-08-14] MEDS ORDERED: CARBIDOPA/LEVODOPA 25/100 TABLET (FP) ONE (21:21)
[2022-08-14] MEDS: CARBIDOPA/LEVODOPA 25/100 TABLET (FP) PO SCH (21:27)
[2022-08-14] MEDS: ATORVASTATIN CA 20 MG TABLET (FP) PO SCH (21:27)
[2022-08-14] MEDS: TIMOLOL 0.5% OPHTHALMIC SOL 5 ML BOTTLE OD SCH (21:27)
[2022-08-14] MEDS: MIRTAZAPINE 15 MG TABLET (FP) PO SCH (21:27)
[2022-08-14] MEDS: DOCUSATE SODIUM 100 MG CAPSULE (FP) PO SCH (21:27)
[2022-08-14] MEDS ORDERED: INSULIN (LEVEMIR) 100 UNITS/ML UNITS SQ SCH (22:00)
[2022-08-14] MEDS: INSULIN SLIDING SCALE (NOVOLOG) 1 VIAL SQ SCH (23:33)
[2022-08-14] MEDS ORDERED: ACETAMINOPHEN 325 MG TABLET (FP) ONE (23:46)
[2022-08-15] MEDS ORDERED: CARBIDOPA/LEVODOPA 25/100 TABLET (FP) ONE (06:22)
[2022-08-15] MEDS: CARBIDOPA/LEVODOPA 25/100 TABLET (FP) PO SCH ×3 (06:26→22:52)
[2022-08-15 07:05] LABS: BASO % 0.9 % (0-2.0); EOS % 15.4 % (0-4.5); HEMOGLOBIN 12.6 GM/dL (11.7-16.9); LYMPH % 16.4 % (8-40); MCH 32.4 pg (25.7-33.7); MEAN CELL VOLUME 95.3 fl (80-96); MEAN PLT VOLUME 7.7 fl (7.5-11.1); MONO % 10.9 % (3.8-10.2); NEUT % 56.4 % (42.8-82.8); PLATELET COUNT 291 10^3/uL (134-434); RBC 3.88 M/mm3 (4.00-5.60); RDW 13.6 % (11.9-15.9); WHITE BLOOD COUNT 8.4 K/mm3 (4.0-10.0)
[2022-08-15 07:45] LABS: ALBUMIN 2.8 g/dl (3.4-5.0); BILIRUBIN,TOTAL 0.5 mg/dL (0.2-1); BLOOD UREA NITROGEN 23.4 mg/dL (7-18); CALCIUM 8.6 mg/dL (8.5-10.1)
[2022-08-15] MEDS: INSULIN SLIDING SCALE (NOVOLOG) 1 VIAL SQ SCH ×4 (08:41→23:00)
[2022-08-15] MEDS ORDERED: LISINOPRIL 5 MG TABLET ONE (09:22)
[2022-08-15] MEDS ORDERED: PANTOPRAZOLE 40 MG TABLET PO ONE (09:22)
[2022-08-15] MEDS ORDERED: THIAMINE HCL 100 MG TABLET (FP) ONE (09:22)
[2022-08-15] MEDS ORDERED: ZINC SULFATE 220 MG CAPSULE (FP) ONE (09:22)
[2022-08-15] MEDS ORDERED: ASCORBIC ACID 500 MG TABLET (FP) ONE (09:22)
[2022-08-15] MEDS ORDERED: ASPIRIN 81 MG CHEWABLE TABLETS ONE (09:22)
[2022-08-15] MEDS ORDERED: CITALOPRAM HYDROBROMIDE 10 MG TABLET ONE (09:23)
[2022-08-15] MEDS ORDERED: TAMSULOSIN HCL 0.4 MG CAP ONE (09:23)
[2022-08-15] MEDS: CITALOPRAM HYDROBROMIDE 10 MG TABLET PO SCH (09:25)
[2022-08-15] MEDS: ASPIRIN 81 MG CHEWABLE TABLETS PO SCH (09:25)
[2022-08-15] MEDS: TAMSULOSIN HCL 0.4 MG CAP PO SCH (09:25)
[2022-08-15] MEDS: CYANOCOBALAMIN (VITAMIN B-12) 100 MCG TABLET PO SCH (09:26)
[2022-08-15] MEDS: ASCORBIC ACID 500 MG TABLET (FP) PO SCH (09:26)
[2022-08-15] MEDS: TIMOLOL 0.5% OPHTHALMIC SOL 5 ML BOTTLE OD SCH ×2 (09:26→23:01)
[2022-08-15] MEDS: CHOLECALCIFEROL (VIT D3) 1,000 UNIT (25 MCG) TABLET PO SCH (09:26)
[2022-08-15] MEDS: PANTOPRAZOLE 40 MG TABLET PO SCH (09:26)
[2022-08-15] MEDS: LISINOPRIL 5 MG TABLET PO SCH (09:26)
[2022-08-15] MEDS: ENOXAPARIN NA (PORCINE) 40 MG/0.4 ML DISP.SYRIN SQ SCH (09:26)
[2022-08-15] MEDS: MULTIVITAMINS (DAILY MVI) TABLET (FP) PO SCH (09:26)
[2022-08-15] MEDS: ZINC OXIDE 20% TOPICAL OINTMENT 30 GM TUBE TP SCH ×2 (09:27→23:01)
[2022-08-15] MEDS ORDERED: PATIENT'S OWN MEDICATION (NON-FORMULARY) (Arginine/Ascorbate Sod/Vite Ac [Arginaid Powder] PO SCH (10:00)
[2022-08-15] MEDS: ALBUTEROL SO4 2.5/IPRATROPIUM 0.5 INH SOL 3 ML VIAL.NEB. NEB SCH ×4 (11:12→20:51)
[2022-08-15] MEDS ORDERED: LEVOTHYROXINE NA 25 MCG TABLET (FP) PO ONE ×2 (13:44→18:00)
[2022-08-15] MEDS ORDERED: CEFAZOLIN 1 GM in DEXTROSE 5%-WATER - 50 ML IVPB ONE (13:44)
[2022-08-15] MEDS ORDERED: VANCOMYCIN/WATER FOR INJ (PEG) 1,000 MG/200 ML BAG IVPB ONE (17:15)
[2022-08-15] MEDS: PIPERACILLIN/TAZOB 3.375 GM 3.375 GM in DEXTROSE 5%-WATER - 50 ML IVPB SCH (18:43)
[2022-08-15] MEDS: ATORVASTATIN CA 20 MG TABLET (FP) PO SCH (22:52)
[2022-08-15] MEDS: MIRTAZAPINE 15 MG TABLET (FP) PO SCH (22:52)
[2022-08-15] MEDS: DOCUSATE SODIUM 100 MG CAPSULE (FP) PO SCH (22:53)
[2022-08-15] MEDS: INSULIN (LEVEMIR) 100 UNITS/ML UNITS SQ SCH (22:59)
[2022-08-16] MEDS: PIPERACILLIN/TAZOB 3.375 GM 3.375 GM in DEXTROSE 5%-WATER - 50 ML IVPB SCH ×3 (02:05→17:36)
[2022-08-16] MEDS: CARBIDOPA/LEVODOPA 25/100 TABLET (FP) PO SCH ×3 (06:35→21:33)
[2022-08-16] MEDS: LEVOTHYROXINE NA 25 MCG TABLET (FP) PO SCH (06:36)
[2022-08-16] MEDS: INSULIN SLIDING SCALE (NOVOLOG) 1 VIAL SQ SCH ×4 (06:44→21:34)
[2022-08-16] MEDS: ALBUTEROL SO4 2.5/IPRATROPIUM 0.5 INH SOL 3 ML VIAL.NEB. NEB SCH ×4 (07:45→20:37)
[2022-08-16] MEDS: TAMSULOSIN HCL 0.4 MG CAP PO SCH (08:29)
[2022-08-16] MEDS: LISINOPRIL 5 MG TABLET PO SCH (10:49)
[2022-08-16] MEDS: CHOLECALCIFEROL (VIT D3) 1,000 UNIT (25 MCG) TABLET PO SCH (10:49)
[2022-08-16] MEDS: ASPIRIN 81 MG CHEWABLE TABLETS PO SCH (10:49)
[2022-08-16] MEDS: ASCORBIC ACID 500 MG TABLET (FP) PO SCH (10:49)
[2022-08-16] MEDS: PANTOPRAZOLE 40 MG TABLET PO SCH (10:49)
[2022-08-16] MEDS: CITALOPRAM HYDROBROMIDE 10 MG TABLET PO SCH (10:49)
[2022-08-16] MEDS: MULTIVITAMINS (DAILY MVI) TABLET (FP) PO SCH (10:49)
[2022-08-16] MEDS: ENOXAPARIN NA (PORCINE) 40 MG/0.4 ML DISP.SYRIN SQ SCH (10:50)
[2022-08-16] MEDS: CYANOCOBALAMIN (VITAMIN B-12) 100 MCG TABLET PO SCH (11:25)
[2022-08-16] MEDS: TIMOLOL 0.5% OPHTHALMIC SOL 5 ML BOTTLE OD SCH ×2 (11:41→21:35)
[2022-08-16] MEDS: ZINC OXIDE 20% TOPICAL OINTMENT 30 GM TUBE TP SCH ×2 (11:42→21:35)
[2022-08-16] MEDS: ATORVASTATIN CA 20 MG TABLET (FP) PO SCH (21:33)
[2022-08-16] MEDS: MIRTAZAPINE 15 MG TABLET (FP) PO SCH (21:33)
[2022-08-16] MEDS: DOCUSATE SODIUM 100 MG CAPSULE (FP) PO SCH (21:34)
[2022-08-16] MEDS: INSULIN (LEVEMIR) 100 UNITS/ML UNITS SQ SCH (21:34)
[2022-08-17] MEDS: PIPERACILLIN/TAZOB 3.375 GM 3.375 GM in DEXTROSE 5%-WATER - 50 ML IVPB SCH ×3 (02:00→17:16)
[2022-08-17] MEDS: CARBIDOPA/LEVODOPA 25/100 TABLET (FP) PO SCH ×3 (05:55→23:40)
[2022-08-17] MEDS: LEVOTHYROXINE NA 25 MCG TABLET (FP) PO SCH (06:28)
[2022-08-17] MEDS: INSULIN SLIDING SCALE (NOVOLOG) 1 VIAL SQ SCH ×4 (06:28→23:43)
[2022-08-17] MEDS: ALBUTEROL SO4 2.5/IPRATROPIUM 0.5 INH SOL 3 ML VIAL.NEB. NEB SCH ×4 (07:35→20:24)
[2022-08-17] MEDS: PANTOPRAZOLE 40 MG TABLET PO SCH (09:45)
[2022-08-17] MEDS: LISINOPRIL 5 MG TABLET PO SCH (09:46)
[2022-08-17] MEDS: TAMSULOSIN HCL 0.4 MG CAP PO SCH (09:46)
[2022-08-17] MEDS: ASPIRIN 81 MG CHEWABLE TABLETS PO SCH (09:46)
[2022-08-17] MEDS: CITALOPRAM HYDROBROMIDE 10 MG TABLET PO SCH (09:46)
[2022-08-17] MEDS: MULTIVITAMINS (DAILY MVI) TABLET (FP) PO SCH (09:46)
[2022-08-17] MEDS: ASCORBIC ACID 500 MG TABLET (FP) PO SCH (09:46)
[2022-08-17] MEDS: ENOXAPARIN NA (PORCINE) 40 MG/0.4 ML DISP.SYRIN SQ SCH (09:47)
[2022-08-17] MEDS: TIMOLOL 0.5% OPHTHALMIC SOL 5 ML BOTTLE OD SCH ×2 (09:47→23:56)
[2022-08-17] MEDS: CYANOCOBALAMIN (VITAMIN B-12) 100 MCG TABLET PO SCH (09:50)
[2022-08-17] MEDS: CHOLECALCIFEROL (VIT D3) 1,000 UNIT (25 MCG) TABLET PO SCH (09:52)
[2022-08-17] MEDS: ZINC OXIDE 20% TOPICAL OINTMENT 30 GM TUBE TP SCH ×2 (10:19→23:56)
[2022-08-17] MEDS: ATORVASTATIN CA 20 MG TABLET (FP) PO SCH (23:39)
[2022-08-17] MEDS: MIRTAZAPINE 15 MG TABLET (FP) PO SCH (23:39)
[2022-08-17] MEDS: DOCUSATE SODIUM 100 MG CAPSULE (FP) PO SCH (23:40)
[2022-08-17] MEDS: INSULIN (LEVEMIR) 100 UNITS/ML UNITS SQ SCH (23:43)
[2022-08-18] MEDS: PIPERACILLIN/TAZOB 3.375 GM 3.375 GM in DEXTROSE 5%-WATER - 50 ML IVPB SCH ×3 (01:36→17:53)
[2022-08-18] MEDS: CARBIDOPA/LEVODOPA 25/100 TABLET (FP) PO SCH ×3 (06:48→21:59)
[2022-08-18] MEDS: LEVOTHYROXINE NA 25 MCG TABLET (FP) PO SCH (06:48)
[2022-08-18] MEDS: INSULIN SLIDING SCALE (NOVOLOG) 1 VIAL SQ SCH ×4 (06:51→22:06)
[2022-08-18] MEDS: ALBUTEROL SO4 2.5/IPRATROPIUM 0.5 INH SOL 3 ML VIAL.NEB. NEB SCH ×4 (08:30→20:23)
[2022-08-18 09:39] LABS: HEMATOCRIT 34.3 % (35.4-49); HEMOGLOBIN 11.4 GM/dL (11.7-16.9); MCH 31.7 pg (25.7-33.7); MCHC 33.2 g/dl (32.0-35.9); MEAN CELL VOLUME 95.4 fl (80-96); MEAN PLT VOLUME 8.3 fl (7.5-11.1); PLATELET COUNT 299 10^3/uL (134-434); RDW 13.4 % (11.9-15.9); WHITE BLOOD COUNT 6.9 K/mm3 (4.0-10.0)
[2022-08-18 09:52] LABS: CHLORIDE 108 mmol/L (98-107); SODIUM 141 mmol/L (136-145)
[2022-08-18 09:55] LABS: CALCIUM 8.4 mg/dL (8.5-10.1)
[2022-08-18 09:56] LABS: ALBUMIN 2.6 g/dl (3.4-5.0); ANION GAP 5 MMOL/L (8-16); BLOOD UREA NITROGEN 20.3 mg/dL (7-18); CO2 28 mmol/L (21-32); GLUCOSE,RANDOM 121 mg/dL (74-106)
[2022-08-18 09:59] LABS: CREATININE 1.2 mg/dL (0.55-1.3); SGOT/AST 19 U/L (15-37); SGPT/ALT < 6 U/L (13-61)
[2022-08-18 10:00] LABS: BILIRUBIN,TOTAL 0.6 mg/dL (0.2-1); TOT PROT 6.6 g/dl (6.4-8.2)
[2022-08-18 10:02] LABS: ALK PHOS 62 U/L (45-117)
[2022-08-18 10:42] LABS: ANISOCYTOSIS 1+; MACROCYTOSIS 1+
[2022-08-18 11:01] LABS: PLATELET ESTIMATE ADEQUATE
[2022-08-18] MEDS: CITALOPRAM HYDROBROMIDE 10 MG TABLET PO SCH (11:01)
[2022-08-18] MEDS: PANTOPRAZOLE 40 MG TABLET PO SCH (11:01)
[2022-08-18] MEDS: CHOLECALCIFEROL (VIT D3) 1,000 UNIT (25 MCG) TABLET PO SCH (11:01)
[2022-08-18] MEDS: MULTIVITAMINS (DAILY MVI) TABLET (FP) PO SCH (11:01)
[2022-08-18] MEDS: ASCORBIC ACID 500 MG TABLET (FP) PO SCH (11:01)
[2022-08-18] MEDS: LISINOPRIL 5 MG TABLET PO SCH (11:01)
[2022-08-18] MEDS: ASPIRIN 81 MG CHEWABLE TABLETS PO SCH (11:02)
[2022-08-18] MEDS: ENOXAPARIN NA (PORCINE) 40 MG/0.4 ML DISP.SYRIN SQ SCH (12:03)
[2022-08-18] MEDS: CYANOCOBALAMIN (VITAMIN B-12) 100 MCG TABLET PO SCH (12:04)
[2022-08-18] MEDS: TIMOLOL 0.5% OPHTHALMIC SOL 5 ML BOTTLE OD SCH ×2 (12:04→22:08)
[2022-08-18] MEDS: ZINC OXIDE 20% TOPICAL OINTMENT 30 GM TUBE TP SCH ×2 (12:06→22:08)
[2022-08-18] MEDS: TAMSULOSIN HCL 0.4 MG CAP PO SCH (12:09)
[2022-08-18] MEDS: DOCUSATE SODIUM 100 MG CAPSULE (FP) PO SCH (21:59)
[2022-08-18] MEDS: ATORVASTATIN CA 20 MG TABLET (FP) PO SCH (21:59)
[2022-08-18] MEDS: MIRTAZAPINE 15 MG TABLET (FP) PO SCH (22:01)
[2022-08-18] MEDS: INSULIN (LEVEMIR) 100 UNITS/ML UNITS SQ SCH (22:05)
[2022-08-19] MEDS: PIPERACILLIN/TAZOB 3.375 GM 3.375 GM in DEXTROSE 5%-WATER - 50 ML IVPB SCH ×2 (02:42→10:56)
[2022-08-19] MEDS: CARBIDOPA/LEVODOPA 25/100 TABLET (FP) PO SCH ×3 (06:21→22:15)
[2022-08-19] MEDS: LEVOTHYROXINE NA 25 MCG TABLET (FP) PO SCH (06:22)
[2022-08-19] MEDS: INSULIN SLIDING SCALE (NOVOLOG) 1 VIAL SQ SCH ×4 (06:24→22:15)
[2022-08-19] MEDS: ALBUTEROL SO4 2.5/IPRATROPIUM 0.5 INH SOL 3 ML VIAL.NEB. NEB SCH ×3 (08:02→16:40)
[2022-08-19] MEDS: MULTIVITAMINS (DAILY MVI) TABLET (FP) PO SCH (10:54)
[2022-08-19] MEDS: TAMSULOSIN HCL 0.4 MG CAP PO SCH (10:54)
[2022-08-19] MEDS: CHOLECALCIFEROL (VIT D3) 1,000 UNIT (25 MCG) TABLET PO SCH (10:54)
[2022-08-19] MEDS: PANTOPRAZOLE 40 MG TABLET PO SCH (10:54)
[2022-08-19] MEDS: LISINOPRIL 5 MG TABLET PO SCH (10:54)
[2022-08-19] MEDS: ASCORBIC ACID 500 MG TABLET (FP) PO SCH (10:54)
[2022-08-19] MEDS: ENOXAPARIN NA (PORCINE) 40 MG/0.4 ML DISP.SYRIN SQ SCH (10:55)
[2022-08-19] MEDS: ASPIRIN 81 MG CHEWABLE TABLETS PO SCH (10:55)
[2022-08-19] MEDS: CYANOCOBALAMIN (VITAMIN B-12) 100 MCG TABLET PO SCH (10:55)
[2022-08-19] MEDS: CITALOPRAM HYDROBROMIDE 10 MG TABLET PO SCH (10:55)
[2022-08-19] MEDS: ZINC OXIDE 20% TOPICAL OINTMENT 30 GM TUBE TP SCH ×2 (10:56→22:11)
[2022-08-19] MEDS: TIMOLOL 0.5% OPHTHALMIC SOL 5 ML BOTTLE OD SCH ×2 (11:05→22:11)
[2022-08-19] MEDS: AMOX TR/POT CLAV 500MG/125MG TABLETS (FP) PO SCH (17:40)
[2022-08-19] MEDS: DOCUSATE SODIUM 100 MG CAPSULE (FP) PO SCH (22:04)
[2022-08-19] MEDS: INSULIN (LEVEMIR) 100 UNITS/ML UNITS SQ SCH (22:06)
[2022-08-19] MEDS: ATORVASTATIN CA 20 MG TABLET (FP) PO SCH (22:08)
[2022-08-19] MEDS: MIRTAZAPINE 15 MG TABLET (FP) PO SCH (22:09)
[2022-08-20] MEDS: CARBIDOPA/LEVODOPA 25/100 TABLET (FP) PO SCH ×3 (06:02→23:21)
[2022-08-20] MEDS: LEVOTHYROXINE NA 25 MCG TABLET (FP) PO SCH (06:03)
[2022-08-20] MEDS: INSULIN SLIDING SCALE (NOVOLOG) 1 VIAL SQ SCH ×4 (06:07→23:24)
[2022-08-20] MEDS: CHOLECALCIFEROL (VIT D3) 1,000 UNIT (25 MCG) TABLET PO SCH (09:26)
[2022-08-20] MEDS: AMOX TR/POT CLAV 500MG/125MG TABLETS (FP) PO SCH ×2 (09:26→17:30)
[2022-08-20] MEDS: LISINOPRIL 5 MG TABLET PO SCH (09:26)
[2022-08-20] MEDS: ASPIRIN 81 MG CHEWABLE TABLETS PO SCH (09:26)
[2022-08-20] MEDS: PANTOPRAZOLE 40 MG TABLET PO SCH (09:27)
[2022-08-20] MEDS: TAMSULOSIN HCL 0.4 MG CAP PO SCH (09:27)
[2022-08-20] MEDS: MULTIVITAMINS (DAILY MVI) TABLET (FP) PO SCH (09:27)
[2022-08-20] MEDS: CYANOCOBALAMIN (VITAMIN B-12) 100 MCG TABLET PO SCH (09:27)
[2022-08-20] MEDS: CITALOPRAM HYDROBROMIDE 10 MG TABLET PO SCH (09:27)
[2022-08-20] MEDS: ASCORBIC ACID 500 MG TABLET (FP) PO SCH (09:27)
[2022-08-20] MEDS: ZINC OXIDE 20% TOPICAL OINTMENT 30 GM TUBE TP SCH ×2 (09:30→23:24)
[2022-08-20] MEDS: TIMOLOL 0.5% OPHTHALMIC SOL 5 ML BOTTLE OD SCH ×2 (09:31→23:25)
[2022-08-20] MEDS ORDERED: DEXTROSE 5%-NORMAL SALINE 1,000 ML IV SCH (12:00)
[2022-08-20] MEDS ORDERED: HEPARIN NA (PORCINE) 5,000 UNITS/ML 1ML VIAL ONE ×2 (16:56→20:45)
[2022-08-20] MEDS ORDERED: ONDANSETRON 4 MG/2 ML VIAL IVPUSH PRN ×2 (20:08→21:56)
[2022-08-20] MEDS ORDERED: PROPOFOL 20 ML ONE ×2 (20:19→20:59)
[2022-08-20] MEDS ORDERED: ceFAZolin SODIUM 1 GM VIAL ONE (20:20)
[2022-08-20] MEDS ORDERED: ceFAZolin SODIUM 1 GM VIAL IVPB ONE (20:27)
[2022-08-20] MEDS ORDERED: LIDOCAINE HCL 1%, 10 MG/ML (50 mL VIAL) INF ONE (20:35)
[2022-08-20] MEDS ORDERED: ACETAMINOPHEN 325 MG TABLET (FP) PO PRN (21:56)
[2022-08-20] MEDS ORDERED: CLOPIDOGREL BISULFATE 75 MG TABLET (FP) ONE (22:07)
[2022-08-20] MEDS: CLOPIDOGREL BISULFATE 75 MG TABLET (FP) PO SCH (22:15)
[2022-08-20] MEDS: DEXTROSE 5%-NORMAL SALINE 1,000 ML IV SCH (22:30)
[2022-08-20] MEDS: DOCUSATE SODIUM 100 MG CAPSULE (FP) PO SCH (23:20)
[2022-08-20] MEDS: MIRTAZAPINE 15 MG TABLET (FP) PO SCH (23:21)
[2022-08-20] MEDS: ATORVASTATIN CA 20 MG TABLET (FP) PO SCH (23:22)
[2022-08-20] MEDS: INSULIN (LEVEMIR) 100 UNITS/ML UNITS SQ SCH (23:23)
[2022-08-21] MEDS: CARBIDOPA/LEVODOPA 25/100 TABLET (FP) PO SCH ×3 (06:45→22:57)
[2022-08-21] MEDS: INSULIN SLIDING SCALE (NOVOLOG) 1 VIAL SQ SCH ×4 (06:45→22:59)
[2022-08-21] MEDS: LEVOTHYROXINE NA 25 MCG TABLET (FP) PO SCH (06:47)
[2022-08-21] MEDS: TAMSULOSIN HCL 0.4 MG CAP PO SCH (09:52)
[2022-08-21] MEDS: MULTIVITAMINS (DAILY MVI) TABLET (FP) PO SCH (09:52)
[2022-08-21] MEDS: CITALOPRAM HYDROBROMIDE 10 MG TABLET PO SCH (09:53)
[2022-08-21] MEDS: ASPIRIN 81 MG CHEWABLE TABLETS PO SCH (09:53)
[2022-08-21] MEDS: AMOX TR/POT CLAV 500MG/125MG TABLETS (FP) PO SCH ×2 (09:53→17:17)
[2022-08-21] MEDS: ASCORBIC ACID 500 MG TABLET (FP) PO SCH (09:53)
[2022-08-21] MEDS: PANTOPRAZOLE 40 MG TABLET PO SCH (09:53)
[2022-08-21] MEDS: CLOPIDOGREL BISULFATE 75 MG TABLET (FP) PO SCH (09:53)
[2022-08-21] MEDS: LISINOPRIL 5 MG TABLET PO SCH (09:54)
[2022-08-21] MEDS: CHOLECALCIFEROL (VIT D3) 1,000 UNIT (25 MCG) TABLET PO SCH (09:54)
[2022-08-21] MEDS: ENOXAPARIN NA (PORCINE) 40 MG/0.4 ML DISP.SYRIN SQ SCH ×2 (09:54→10:26)
[2022-08-21] MEDS: ZINC OXIDE 20% TOPICAL OINTMENT 30 GM TUBE TP SCH ×3 (09:55→23:18)
[2022-08-21] MEDS: TIMOLOL 0.5% OPHTHALMIC SOL 5 ML BOTTLE OD SCH ×3 (09:56→23:17)
[2022-08-21] MEDS: CYANOCOBALAMIN (VITAMIN B-12) 100 MCG TABLET PO SCH (10:00)
[2022-08-21 10:04] LABS: BASO % 0.6 % (0-2.0); EOS % 7.4 % (0-4.5); HEMATOCRIT 35.8 % (35.4-49); HEMOGLOBIN 12.1 GM/dL (11.7-16.9); LYMPH % 11.6 % (8-40); MCH 31.9 pg (25.7-33.7); MCHC 33.7 g/dl (32.0-35.9); MEAN CELL VOLUME 94.6 fl (80-96); MEAN PLT VOLUME 8.4 fl (7.5-11.1); MONO % 11.6 % (3.8-10.2); NEUT % 68.8 % (42.8-82.8); PLATELET COUNT 282 10^3/uL (134-434); RBC 3.78 M/mm3 (4.00-5.60); RDW 12.8 % (11.9-15.9); WHITE BLOOD COUNT 7.4 K/mm3 (4.0-10.0)
[2022-08-21 10:30] LABS: ALBUMIN 2.6 g/dl (3.4-5.0); BLOOD UREA NITROGEN 16.3 mg/dL (7-18); CREATININE 0.9 mg/dL (0.55-1.3)
[2022-08-21 10:31] LABS: BILIRUBIN,TOTAL 0.5 mg/dL (0.2-1); TOT PROT 6.6 g/dl (6.4-8.2)
[2022-08-21 10:37] LABS: CALCIUM 8.5 mg/dL (8.5-10.1)
[2022-08-21] MEDS: DEXTROSE 5%-NORMAL SALINE 1,000 ML IV SCH (12:17)
[2022-08-21] MEDS: DOCUSATE SODIUM 100 MG CAPSULE (FP) PO SCH (22:57)
[2022-08-21] MEDS: ATORVASTATIN CA 20 MG TABLET (FP) PO SCH (22:57)
[2022-08-21] MEDS: MIRTAZAPINE 15 MG TABLET (FP) PO SCH (22:58)
[2022-08-21] MEDS: INSULIN (LEVEMIR) 100 UNITS/ML UNITS SQ SCH (22:59)
[2022-08-22] MEDS: DEXTROSE 5%-NORMAL SALINE 1,000 ML IV SCH (05:35)
[2022-08-22] MEDS: CARBIDOPA/LEVODOPA 25/100 TABLET (FP) PO SCH ×2 (06:04→15:10)
[2022-08-22] MEDS: LEVOTHYROXINE NA 25 MCG TABLET (FP) PO SCH (06:05)
[2022-08-22] MEDS: INSULIN SLIDING SCALE (NOVOLOG) 1 VIAL SQ SCH ×2 (06:10→15:10)
[2022-08-22 07:19] VITALS: RESP 20
[2022-08-22] MEDS: ASCORBIC ACID 500 MG TABLET (FP) PO SCH (11:01)
[2022-08-22] MEDS: LISINOPRIL 5 MG TABLET PO SCH (11:01)
[2022-08-22] MEDS: TAMSULOSIN HCL 0.4 MG CAP PO SCH (11:01)
[2022-08-22] MEDS: CLOPIDOGREL BISULFATE 75 MG TABLET (FP) PO SCH (11:01)
[2022-08-22] MEDS: MULTIVITAMINS (DAILY MVI) TABLET (FP) PO SCH (11:01)
[2022-08-22] MEDS: ASPIRIN 81 MG CHEWABLE TABLETS PO SCH (11:01)
[2022-08-22] MEDS: PANTOPRAZOLE 40 MG TABLET PO SCH (11:01)
[2022-08-22] MEDS: CITALOPRAM HYDROBROMIDE 10 MG TABLET PO SCH (11:01)
[2022-08-22] MEDS: AMOX TR/POT CLAV 500MG/125MG TABLETS (FP) PO SCH (11:01)
[2022-08-22] MEDS: CHOLECALCIFEROL (VIT D3) 1,000 UNIT (25 MCG) TABLET PO SCH (11:02)
[2022-08-22] MEDS: CYANOCOBALAMIN (VITAMIN B-12) 100 MCG TABLET PO SCH (11:02)
[2022-08-22] MEDS: ENOXAPARIN NA (PORCINE) 40 MG/0.4 ML DISP.SYRIN SQ SCH (11:02)
[2022-08-22] MEDS: ZINC OXIDE 20% TOPICAL OINTMENT 30 GM TUBE TP SCH (11:03)
[2022-08-22] MEDS: TIMOLOL 0.5% OPHTHALMIC SOL 5 ML BOTTLE OD SCH (11:04)
[2022-08-22 15:56] VITALS: BP 146/72; PULSE 64; TEMP 97
== END 2022-08-22 16:07 | DRG 271 ==
LOC: JER 13:06 → SUPCPDRO 13:06 → JERBED 13:34 → J8W 08-15 12:59
PROVIDERS: ADMIT Internal Medicine; ATTEND Internal Medicine
PROC: 047Q3DZ Dilation of Left Anterior Tibial Artery with Intraluminal Device, Percutaneous Approach (ICD-10-PCS; 2022-08-20)
PROC: B40GYZZ Plain Radiography of Left Lower Extremity Arteries using Other Contrast (ICD-10-PCS; 2022-08-20)
PROC: B40DYZZ Plain Radiography of Aorta and Bilateral Lower Extremity Arteries using Other Contrast (ICD-10-PCS; 2022-08-20)
PROC: 04CQ3ZZ Extirpation of Matter from Left Anterior Tibial Artery, Percutaneous Approach (ICD-10-PCS; principal; 2022-08-20 17:00)
DX: E11.52 Type 2 diabetes mellitus with diabetic peripheral angiopathy with gangrene (principal); F03.911 Unspecified dementia, unspecified severity, with agitation; L97.528 Non-pressure chronic ulcer of other part of left foot with other specified severity; G20 Parkinson's disease; E78.5 Hyperlipidemia, unspecified; K21.9 Gastro-esophageal reflux disease without esophagitis; E11.22 Type 2 diabetes mellitus with diabetic chronic kidney disease; N18.2 Chronic kidney disease, stage 2 (mild); I12.9 Hypertensive chronic kidney disease with stage 1 through stage 4 chronic kidney disease, or unspecified chronic kidney disease; E11.621 Type 2 diabetes mellitus with foot ulcer; I35.0 Nonrheumatic aortic (valve) stenosis; Z87.11 Personal history of peptic ulcer disease; Z96.653 Presence of artificial knee joint, bilateral; Z96.643 Presence of artificial hip joint, bilateral
CPT/HCPCS: 36415; 71045-TC-FY; 73630-TC-LT; 80053; 82962; 84443; 85025; 85610; 85730; 86850; 86900; 86901; 87040; 93005; 93010; 93306-TC; 93925-TC; 94640; 94760; 99285-25; C9803-CS; G0463-25; J1644; U0003; U0005